=== PATIENT | female | born 1940 | race Caucasian/White ===

== ENCOUNTER 2016-05-13 17:52 | Emergency (ER) | payer MEDICARE, OTHER ==
--- NOTE | 2016-05-13 19:20 | RAD ---
INDICATION: Left ankle injury. TECHNIQUE: 3 views of the left ankle were obtained. FINDINGS: The bones appear osteopenic and in normal alignment. There is mild soft tissue swelling adjacent to the lateral malleolus. There is a nondisplaced fracture of the tip of the lateral malleolus age indeterminate although likely chronic. IMPRESSION: NONDISPLACED FRACTURE OF THE TIP OF THE LATERAL MALLEOLUS, AGE INDETERMINATE ALTHOUGH LIKELY CHRONIC.
--- NOTE | 2016-05-13 19:24 | RAD ---
INDICATION: Left lower leg injury. TECHNIQUE: 2 views of the left lower leg were obtained. FINDINGS: The bones are in normal alignment. Which may represent a chronic finding although a fracture cannot be excluded. There is slight depression of the medial tibial plateau Note is made of calcification within the distal quadriceps tendon most consistent with calcific tendinitis. IMPRESSION: MILD DEPRESSION OF THE MEDIAL TIBIAL PLATEAU. THIS MAY BE A CHRONIC FINDING ALTHOUGH A FRACTURE CANNOT BE EXCLUDED. RECOMMEND AN X-RAY OF THE LEFT KNEE IF THE PATIENT HAS SYMPTOMS OVER THIS REGION.
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
[2016-05-13] MEDS ORDERED: oxyCODONE SR TAB(*) 10 MG TAB.SR PO ONE (19:51)
--- NOTE | 2016-05-13 20:03 | RAD ---
INDICATION: Left knee injury. TECHNIQUE: 2 views of the left knee were obtained. FINDINGS: The bones are in normal alignment. No fracture is seen. No joint effusion is present. 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 There is moderate to severe osteoarthritic change in the medial compartment. IMPRESSION: NO EVIDENCE FOR FRACTURE.
[2016-05-13 20:53] VITALS: BP 108/43
== END 2016-05-13 20:52 | disposition home or self-care (01) ==
LOC: ED 17:52
DX: S82.65XA Nondisplaced fracture of lateral malleolus of left fibula, initial encounter for closed fracture (principal); M25.572 Pain in left ankle and joints of left foot; M25.562 Pain in left knee; S80.12XA Contusion of left lower leg, initial encounter; V49.9XXA Car occupant (driver) (passenger) injured in unspecified traffic accident, initial encounter; Y93.89 Activity, other specified; Y92.9 Unspecified place or not applicable; Y93.9 Activity, unspecified
CPT/HCPCS: 99282; A9270-GY

== ENCOUNTER 2016-05-22 13:15 | Emergency (ER) | payer MEDICARE ==
[2016-05-22 13:28] VITALS: BP 137/59
--- NOTE | 2016-05-22 14:47 | RAD ---
HISTORY: Edema, pain left leg COMPARISONS: April 03, 2015 TECHNIQUE: Multiple transverse and longitudinal ultrasound images were obtained of the left lower extremity from the level of the common femoral vein inferiorly through to the infrapopliteal veins using grayscale, color Doppler, and spectral Doppler imaging with and without compression and with augmentation. Comparison images were obtained of the contralateral common femoral vein. FINDINGS: VEINS: The venous system of the left lower extremity is compressible throughout its course, with normal flow on color Doppler imaging and normal response to augmentation on spectral Doppler imaging. SOFT TISSUES: Unremarkable. OTHER FINDINGS: None. IMPRESSION: NO LEFT LOWER EXTREMITY DEEP VEIN THROMBOSIS
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
== END 2016-05-22 15:28 | disposition home or self-care (01) ==
LOC: UCEAST 13:15
DX: S80.12XD Contusion of left lower leg, subsequent encounter (principal); V43.62XD Car passenger injured in collision with other type car in traffic accident, subsequent encounter; R60.0 Localized edema; E03.9 Hypothyroidism, unspecified; I25.2 Old myocardial infarction; I10 Essential (primary) hypertension; Z95.0 Presence of cardiac pacemaker; I50.9 Heart failure, unspecified; G45.9 Transient cerebral ischemic attack, unspecified; G43.909 Migraine, unspecified, not intractable, without status migrainosus; Z90.49 Acquired absence of other specified parts of digestive tract; Z88.5 Allergy status to narcotic agent; Z88.2 Allergy status to sulfonamides
CPT/HCPCS: 99212; G0463

== ENCOUNTER 2016-07-13 11:40 | Observation (INO) | payer MEDICARE, OTHER ==
[2016-07-13] MEDS ORDERED: Aspirin Low Dose CHEW TAB* 81 MG PO ONE (11:47)
--- NOTE | 2016-07-13 12:21 | RAD ---
INDICATION: Palpitations. COMPARISON: Comparison is made with a prior study from December 30, 2015. TECHNIQUE: A portable view of the chest was obtained. FINDINGS: The patient is status post sternotomy. There is a multilead transvenous pacemaker present. The heart is moderately enlarged and unchanged from the prior exam. The lungs are underinflated and clear. No pleural effusion is seen. IMPRESSION: CARDIOMEGALY AND POSTSURGICAL CHANGES, NO EVIDENCE FOR ACUTE FINDING.
[2016-07-13 13:11] LABS: Albumin 3.3 g/dL (3.2-5.2); BUN/Creatinine Ratio 23.9 (8-20); Calcium 8.7 mg/dL (8.6-10.3); EGFR African American 110.7 (>60); Globulin 3.7 g/dL (2-4); Potassium 3.6 mmol/L (3.5-5.0); Total Bilirubin 0.8 mg/dL (0.2-1.0)
[2016-07-13 13:13] LABS: Troponin I 0.03 ng/mL (<0.04)
[2016-07-13 13:28] LABS: Hematocrit 39 % (35-47); Hemoglobin 12.7 g/dl (12.0-16.0); Mean Corpuscular HGB Conc 32 g/dl (31-36); Mean Corpuscular Hemoglobin 33 pg (27-31); Mean Corpuscular Volume 101 fL (80-97); Mean Platelet Volume 8 um3 (7.4-10.4); Red Blood Count 3.89 10^6/ul (4.0-5.4); Red Cell Distribution Width 15 % (10.5-15); White Blood Count 4.3 10^3/ul (3.5-10.8)
[2016-07-13] MEDS ORDERED: Iohexol 350* (CONTRAST) 500 ML MDV IV ONE (14:56)
[2016-07-13 15:16] LABS: Digoxin 1.1 ng/ml (0.8-2.0)
--- NOTE | 2016-07-13 15:30 | RAD ---
INDICATION: Chest pain. COMPARISON: Comparison is made with a prior CT angiogram of the chest from April 03, 2015. Correlation is also made with a prior chest x-ray study from July 13, 2016. TECHNIQUE: A CT angiogram of the chest was performed with intravenous following intravenous injection of 64 ml of Omnipaque 350 nonionic contrast. Contiguous axial sections were obtained from the lung apices through the lung bases. Images were reconstructed in the coronal and sagittal planes. FINDINGS: There is suboptimal opacification of the pulmonary arteries with slight decreased opacification of the basilar segmental arteries. No intraluminal filling defect or pulmonary embolism is seen. There is prominence of the central pulmonary arteries suggestive possibility of pulmonary artery hypertension. 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 No pericardial effusion is present. The thoracic aorta is normal in caliber. There is mild calcific plaque present. There are prominent lymph nodes in the mediastinum in the pretracheal and aorticopulmonary window regions measuring up to 1.3 cm in transverse dimension and unchanged from the prior study. No enlarged hilar lymph nodes are seen. There is a small right lower lobe infiltrate and trace right pleural effusion. No significant focal osseous abnormality is seen. IMPRESSION: 1. SLIGHTLY LIMITED EXAM, NO EVIDENCE FOR PULMONARY EMBOLISM. 2. SMALL RIGHT LOWER LOBE INFILTRATE AND TRACE RIGHT PLEURAL EFFUSION. 3. OCCLUSION OF THE LEFT SUBCLAVIAN VEIN. 4. MARKED CARDIOMEGALY, UNCHANGED. 5. MILDLY PROMINENT MEDIASTINAL LYMPH NODES, UNCHANGED.
[2016-07-13] MEDS ORDERED: cefTRIAXone(*) 1 GM in NS 0.9% 50 ML* 50 ML IVPB ONE (16:15)
[2016-07-13] MEDS ORDERED: Azithromycin IV(*) 500 MG in NS 0.9% 250 ML* 250 ML IVPB ONE (16:15)
[2016-07-13] MEDS ORDERED: Ondansetron INJ* 2 MG/ML VIAL IV PRN (17:38)
[2016-07-13] MEDS ORDERED: Acetaminophen TAB* 325 MG PO PRN (17:38)
[2016-07-13] MEDS ORDERED: Potassium Chlor TAB* 20 MEQ TAB.ER PO ONE (18:08)
[2016-07-13] MEDS ORDERED: Furosemide IV* 10 MG/ML 2 ML VIAL (20 MG) IV SLOW PU ONE (18:10)
[2016-07-13] MEDS ORDERED: Lisinopril TAB* 5 MG PO ONE (18:10)
[2016-07-13 18:25] LABS: Magnesium 1.8 mg/dL (1.9-2.7)
[2016-07-13 18:36] LABS: TSH (Thyroid Stimulating Horm) 3.3 mcIU/mL (0.34-5.60)
[2016-07-13] MEDS: DOXYcycline CAP(*) 100 MG PO SCH (20:09)
[2016-07-13] MEDS: Rivaroxaban TAB(*) 15 MG PO SCH (20:09)
[2016-07-13] MEDS ORDERED: Metoprolol Succinate XL TAB* 100 MG PO SCH (21:00)
--- NOTE | 2016-07-13 21:41 | HP ---
ADDENDUM NOW INCLUDED ON THIS REPORT MEDICINE HISTORY AND PHYSICAL: DATE OF ADMISSION: 07/13/16 PROVIDER: Kevyn Mccray NP ATTENDING PHYSICIAN: Dr. Miquel Connelly *(dictated by Kevyn Mccray NP). CONSULTING PHYSICIAN: Dr. Mat Shipman, Cardiology. PRIMARY CARE PROVIDER: Dr. Gregory Edge. PRIMARY SECURITY DOOR INSTALLER: Dr. Tavarez. CHIEF COMPLAINT: Palpitations, ICD firing. HISTORY OF PRESENT ILLNESS: Ms. Bain is a 75-year-old female with an extensive cardiac history, which includes severe nonischemic cardiomyopathy and mitral valve repair, paroxysmal atrial fibrillation, coronary artery disease, congestive heart failure, and hypertension. The patient reports early this morning around 1 or 2 a.m. that she experienced two " shocks" from her ICD. She thinks that fired maybe 2, possibly 3 times. She also felt palpitations. She went to the [facility] last evening for further evaluation. Per the [facility] notes as well as the patient, the patient did have her ICD and pacemaker interrogated by a [employer] rep, who apparently also reset the ICD. The patient was treated with IV digoxin and potassium and was discharged to home. The patient says that later this morning, after being discharged, she still felt weak and still was having palpitations. She also feels some chest pain to the left chest, which she describes as being just under the defibrillator. She feels increased shortness of breath and fatigue that she describes mostly as inability to tolerate activity. She denies any wheezing or coughing. She denies any recent illnesses and fever or chills. She denies any cold or flu - like symptoms including cough. She denies any abdominal pain, nausea, vomiting, diarrhea, dysuria, focal weakness, or sensory loss. She does report chronic bilateral lower extremity edema secondary to peripheral vascular disease. In the ER, the patient had labs drawn. Her troponin is 0.03, which appears to be around her baseline. Her BNP is 527, which is actually low in the previous admissions that we have here on record. Her dig level is 1.1. CTA of the chest and thorax shows no evidence of pulmonary embolism. There is a small right lower lobe infiltrate and trace right pleural effusion. There is also occlusion of the left subclavian vein. Marked cardiomegaly that is unchanged and mildly prominent mediastinal lymph nodes also unchanged. PAST MEDICAL HISTORY: Includes: 1. Coronary artery disease. The patient has a history of myocardial infarction x3. 2. Nonischemic cardiomyopathy. 3. Systolic heart failure. EF on echocardiogram from 2016 is estimated at 20% to 25%. 4. Paroxysmal atrial fibrillation. The patient was previously on warfarin, but states that has been off this for several weeks, she is unsure why. 5. Hypertension. 6. Peripheral vascular disease with venous stasis changes. 7. History of TIA. 8. Hypothyroidism. 9. GERD. 10. Peptic ulcer disease. 11. Osteoarthritis. 12. Thrombocytopenia. 13. History of migraines. 14. History of leukopenia. 15. The patient wears chronic O2 at 6 L secondary to cardiac disease. PAST SURGICAL HISTORY: Includes: 1. ICD/pacemaker implantation. 2. Mitral valve repair secondary to history of rheumatic fever. 3. Cholecystectomy. 4. Lumbar spine surgery. 5. Hysterectomy. HOME MEDICATIONS: The med rec still needs to be updated. Previous records show the followin. Prednisone. 2. Oxycodone p.r.n. 3. Torsemide. 4. Spironolactone. 5. Metoprolol succinate XL. 6. Zaroxolyn. 7. Lisinopril. 8. Levothyroxine. 9. Esomeprazole. 10. Digoxin. 11. Atorvastatin. Doses need to be confirmed. We will update the list when it is available. ALLERGIES: Include HEPARIN which apparently causes rash and TORADOL. FAMILY HISTORY: The patient's mother had a history of heart disease. SOCIAL HISTORY: She denies any history of tobacco use. She reports rare alcohol use and denies any other history of illicit or recreational drug use. 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 She lives with her significant other, who is also her surrogate decision maker, Bret Altamirano. REVIEW OF SYSTEMS: A 14-point review of systems was completed. All pertinent positives and negatives are included in the HPI. All others not mentioned are negative. PHYSICAL EXAMINATION GENERAL: Ms. Bain is a 75-year-old female who is lying in the ED stretcher in no acute distress. She is alert and conversive. VITAL SIGNS: Temperature 97.9, heart rate 70, respiratory rate 18, blood pressure 149/67, and O2 saturation 99% on 6 L nasal cannula. HEENT: Head is atraumatic, normocephalic. Face is symmetrical. Pupils are equal, round, reactive to light. Sclerae anicteric. External ears and nose are normal. Oral mucosa appears moist. NECK: Supple. No lymphadenopathy appreciated. No JVD noted. RESPIRATORY: Lungs are clear to auscultation. There are no accessory muscle use. There are no adventitious lung sounds. CARDIAC: S1, S2 heart sounds. Regular rate and rhythm. No added sounds noted. The patient has 1+ pitting edema to the bilateral lower extremities. Distal pulses are 1+ and symmetrical. ABDOMEN: Soft, nontender, nondistended. MUSCULOSKELETAL: The patient appears to have full range of motion. NEURO: No focal deficits noted. The patient is able to move all extremities. PSYCH: She is alert and oriented x3. Her affect is appropriate. SKIN: The patient has venous stasis and skin changes to the bilateral lower extremities. There is a small open area to the posterior calf that is weeping clear serous fluid. No odor noted from wounds. DIAGNOSTIC STUDIES/LAB DATA: CBC: WBC 4.3, hemoglobin 12.7, hematocrit 39, platelet count 102. CMP: Sodium 138, potassium 3.6, chloride 103, carbon dioxide 29, BUN 16, creatinine 0.67, glucose 86, calcium 8.7. Total bilirubin 0.8, AST 39, ALT 25, alk phos 76. Troponin 0.03. BNP 527. Albumin 3.3. Digoxin 1.1. EKG shows a paced rhythm. Chest x-ray, impression: Cardiomegaly and postsurgical changes. No evidence for acute finding. CTA findings as previously mentioned. Old medical records were reviewed. ASSESSMENT AND PLAN: Ms. Bain is a 75-year-old female presented today with concern for palpitations and weakness secondary to her implantable cardioverter- defibrillator discharging. [facility] records show that the [employer] rep interrogated the device and noted supraventricular tachycardia and ventricular fibrillation. Plan is as follows: 1. Palpitations and implantable cardioverter-defibrillator discharge secondary to ventricular fibrillation and supraventricular tachycardia. Admit to telemetry for further monitoring. I did speak with Dr. Shipman who will consult on the patient tomorrow. Per the [facility] records, the implantable cardioverter -defibrillator is working properly. The patient says that her implantable cardioverter-defibrillator has not fired in quite some time. Given her reports of persistent weakness, it will be beneficial to monitor on telemetry, to obtain an echocardiogram tomorrow. The patient does have known cardiomyopathy that appears relatively severe. Additionally, we will recheck her labs in the a.m. She currently is in sinus rhythm with rates controlled in the 70s. 2. Right lower lobe infiltrate concerning for pneumonia. The patient has been afebrile and does not demonstrate any leukocytosis; however, given her weakness , this could represent a developing pneumonia. The patient was started on ceftriaxone and azithromycin in the ER. However, azithromycin does have interaction with digoxin and given that she has been experiencing arrhythmias, I have switched her to doxycycline in order to help maintain stability of her digoxin. She is also going to continue on ceftriaxone. She is currently not requiring any additional O2. Continue to monitor. 3. Subclavian vein occlusion. The patient was previously on warfarin, but cannot tell me as to why she was stopped. The patient denies any recent surgeries or bleeding. I am unable to bridge her back to a therapeutic INR on warfarin due to her HEPARIN allergy. We did discuss the risks and benefits of Xarelto and the patient is amenable to trying this drug. I will start her on Xarelto for acute deep venous thrombosis treatment and then we will switch her to the maintenance dose after she completes a 21-day dosing of 15 mg b.i.d. 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 4. History of systolic heart failure. Obtain new echocardiogram. Continue home medications which I am looking to confirm. We will continue daily weights and I's and O's. Does not appear to be in acute exacerbation at this time. Continue to monitor closely. The patient denies any orthopnea or increasing edema or increased shortness of breath. Continue the patient's Zaroxolyn, torsemide once dosing is confirmed. 5. Paroxysmal atrial fibrillation. Start Xarelto. Continue Toprol once dosing is confirmed. 6. Hyperlipidemia. Continue statin. 7. Hypothyroidism. Continue levothyroxine. 8. History of peptic ulcer disease and gastroesophageal reflux disease. Continue PPI. 9. Venous stasis ulcers. Appears stable per the patient's report. We will request Wound Care consult if the patient remains past Friday. Most of the wounds are scabbed over. There is one small open area which we will dress and monitor. 10. FEN. The patient is ordered a heart-healthy diet. 11. DVT prophylaxis. She is rated highest risk and will be started on Xarelto. 12. Code status. The patient wishes to be a full code. TIME SPENT: Time spent on this admission was approximately 60 minutes, more than half that time was spent [id number] with the patient obtaining history and physical, performing physical examination, and reviewing the plan of care. Plan of care was also reviewed with my attending, Dr. Connelly, who is in agreement. KEVYN MCCRAY NP ADDENDUM: ASSESSMENT AND PLAN: Macrocytosis, which appears to be chronic in nature. The patient does have a known history of B12 deficiency. Continue B12 supplementation and continue to monitor CBC. The patient also has a history significant for leukopenia. We will carefully monitor her platelet count and red blood cells. KEVYN MCCRAY NP CC: Dr. Gregory Edge* [id number]/CPS #: [id number]/CPS #: [id number] MARISOL
--- NOTE | 2016-07-13 21:41 | HP ---
HISTORY AND PHYSICAL:* ADDENDUM: ASSESSMENT AND PLAN: Macrocytosis, which appears to be chronic in nature. The patient does have a known history of B12 deficiency. Continue B12 supplementation and continue to monitor CBC. The patient also has a history significant for leukopenia. We will carefully monitor her platelet count and red blood cells. KEVYN MCCRAY, EXECUTIVE VICE PRESIDENT OF SALES [id number]/[facility] #: [id number] MARISOL
[2016-07-14 00:02] LABS: Urine Bilirubin Negative (Negative); Urine Glucose Negative (Negative); Urine Nitrite Negative (Negative)
[2016-07-14 05:14] LABS: Hematocrit 36 % (35-47); Mean Corpuscular HGB Conc 33 g/dl (31-36); Mean Corpuscular Hemoglobin 33 pg (27-31); Mean Corpuscular Volume 101 fL (80-97); Mean Platelet Volume 8 um3 (7.4-10.4); Red Blood Count 3.59 10^6/ul (4.0-5.4); Red Cell Distribution Width 14 % (10.5-15); White Blood Count 3.9 10^3/ul (3.5-10.8)
[2016-07-14 05:15] LABS: Add Diff/Slide Review? Slide Review Added; Comments Flag Yes
[2016-07-14 05:27] LABS: BUN/Creatinine Ratio 20.3 (8-20); Calcium 8.4 mg/dL (8.6-10.3); EGFR African American 128.1 (>60); EGFR Non-African American 99.6 (>60); Magnesium 1.5 mg/dL (1.9-2.7); Potassium 3.6 mmol/L (3.5-5.0)
[2016-07-14] MEDS ORDERED: Magnesium Sulf 4 GM/100 ML IV* 4,000 MG/100 ML BAG IVPB ONE (08:16)
[2016-07-14] MEDS ORDERED: Digoxin TAB* 0.125 MG PO SCH (09:00)
[2016-07-14] MEDS ORDERED: Potassium Chlor TAB* 20 MEQ TAB.ER PO SCH (09:00)
[2016-07-14] MEDS ORDERED: Metolazone TAB* 5 MG PO SCH (09:00)
[2016-07-14] MEDS ORDERED: Cyanocobalamin TAB* 500 MCG PO SCH (09:00)
[2016-07-14] MEDS ORDERED: Torsemide TAB* 20 MG PO SCH ×2 (09:00→10:08)
[2016-07-14] MEDS ORDERED: Metoprolol Succinate XL TAB* 100 MG PO SCH (09:00)
[2016-07-14] MEDS ORDERED: Lisinopril TAB* 5 MG PO SCH (09:00)
[2016-07-14] MEDS: Rivaroxaban TAB(*) 15 MG PO SCH (09:47)
[2016-07-14] MEDS: DOXYcycline CAP(*) 100 MG PO SCH (09:48)
[2016-07-14] MEDS ORDERED: oxyCODONE SR TAB(*) 40 MG TAB.SR PO PRN (10:05)
[2016-07-14] MEDS ORDERED: Methocarbamol TAB* 500 MG PO PRN (10:05)
[2016-07-14 12:36] VITALS: BP 108/39
--- NOTE | 2016-07-14 14:33 | ED ---
Marge Mitchell SooYoung, scribed for Gigi Rosales MD on 07/13/16 at 1148 . Palpitations / Dysrhythmia - HPI Summary HPI Summary: A 75 y/o F presents to ED with c/o racing palpitations onset approx 0230. She believes her pacemaker was "running funny." She went to [facility] ED last night and was seen by a rep from [employer] who reset the pacemaker. Pt went home but still did not feel right, so she [place] [facility] Associated sx: abd pain, lightheaded, SOB, CP from below the pacemaker onset yesterday evening, sore throat, leg swelling. She notes yesterday afternoon, her pacemaker gave her a strong shock. Pt sees Dr. Garcia, cardiology, at [facility]. She is scheduled to see him on 07/19. Pt is on home O2. - History of Current Complaint Chief Complaint: EDDysrhythmPalp Time Seen by Provider: 07/13/16 11:47 Hx Obtained From: Patient Onset/Duration: Lasting Hours, Still Present Timing: Constant Character: Fast, Irregular Associated Signs & Symptoms: Lightheadedness, Chest Pain, Shortness of Breath - Allergy/Home Medications Allergies/Adverse Reactions: Allergies Allergy/AdvReac Type Severity Reaction Status Date / Time Heparin Allergy Hives Verified 04/02/15 04:20 Ketorolac Tromethamine Allergy Unknown Verified 04/02/15 04:20 [From Toradol] Reaction Details PACEMAKER -NO MRIs Allergy PACEMAKER Uncoded 02/15/16 08:09 -NO MRIs PMH/Surg Hx/FS Hx/Imm Hx Previously Healthy: No Endocrine/Hematology History: Reports: Hx Thyroid Disease - hypothyroidism Denies: Hx Diabetes Cardiovascular History: Reports: Hx Auto Implanted Cardiovert Defib - AICD, Hx Congestive Heart Failure - CHRONIC, Hx Coronary Artery Disease, Hx Hypercholesterolemia, Hx Hypertension, Hx Pacemaker/ICD, Other Cardiovascular Problems/Disorders - NON ISCHEMIC CARDIOMYOPATHY Respiratory History: Reports: Other Respiratory Problems/Disorders - HOME O2 Denies: Hx Asthma, Hx Chronic Obstructive Pulmonary Disease (COPD) GI History: Reports: Hx Gall Bladder Disease, Hx Gastroesophageal Reflux Disease , Hx Ulcer - bleeding, Other GI Disorders - PUD History: Denies: Hx Renal Disease Musculoskeletal History: Reports: Hx Arthritis, Hx Back Problems Sensory History: Reports: Hx Contacts or Glasses Opthamlomology History: Reports: Hx Contacts or Glasses Neurological History: Reports: Hx Migraine, Hx Transient Ischemic Attacks (TIA) - Surgical History Surgery Procedure, Year, and Place: APR 16, 2011 PACER. gallbladder removed 1999. 12 rods placed in back ~10 years ago. hysterectomy Infectious Disease History: Reports: Hx of Known/Suspected MRSA Denies: Hx Hepatitis, History Other Infectious Disease, Traveled Outside the [place] in Last 30 Days - Family History Known Family History: Positive: Cardiac Disease - Social History Occupation: Retired Lives: Alone Alcohol Use: None Hx Substance Use: No Substance Use Type: Reports: None Hx Tobacco Use: No Smoking Status (MU): Never Smoked Tobacco Review of Systems Negative: Fever, Chills Negative: Erythema Positive: Sore Throat Positive: Palpitations, Chest Pain Positive: Shortness Of Breath. Negative: Cough Positive: Abdominal Pain. Negative: Vomiting, Nausea Negative: dysuria, hematuria Positive: Edema - pedal edema. Negative: Myalgia Negative: Rash Neurological: Other - pos: lightheadedness All Other Systems Reviewed And Are Negative: Yes Physical Exam - Summary Physical Exam Summary: Constitutional: Well-developed, Well-nourished, Alert. (-) Distressed Skin: Warm, Dry HENT: Normocephalic; Atraumatic Eyes: Conjunctiva normal Neck: Musculoskeletal ROM normal neck. (-) JVD, (-) Stridor, (-) Tracheal deviation Cardio: Rhythm regular, rate normal, Heart sounds normal; Intact distal pulses; The pedal pulses are 2+ and symmetric. Radial pulses are 2+ and symmetric. (-) Murmur Pulmonary/Chest wall: Effort normal. (-) Respiratory distress, (-) Wheezes, (-) Rales Abd: Soft, (-) Tenderness, (-) Distension, (-) Guarding, (-) Rebound Musculoskeletal: TRACE PITTING EDEMA, VENOUS STASIS AND SKIN CHANGES TO LE Lymph: (-) Cervical adenopathy Neuro: Alert, Oriented x3 Psych: Mood and affect Normal Triage Information Reviewed: Yes Vital Signs On Initial Exam: Initial Vitals Temp Pulse Resp BP Pulse Ox 97.0 F 70 18 151/59 98 07/13/16 11:42 07/13/16 11:42 07/13/16 11:42 07/13/16 11:42 07/13/16 11:42 Vital Signs Reviewed: Yes Diagnostics - Vital Signs Vital Signs Temp Pulse Resp BP Pulse Ox 07/13/16 11:42 97.0 F 70 18 151/59 98 - Laboratory Result Diagrams: 07/13/16 13:20 07/13/16 12:45 Lab Statement: Any lab studies that have been ordered have been reviewed, and results considered in the medical decision making process. - Radiology CXR Xray Interpretation: No Acute Changes - IMPRESSION: CARDIOMEGALY AND POSTSURGICAL CHANGES, NO EVIDENCE FOR ACUTE FINDING. Radiology Interpretation Completed By: Radiologist - CT CTA CHEST CT Interpretation: Positive (See Comments) - IMPRESSION: 1. SLIGHTLY LIMITED EXAM, NO EVIDENCE FOR PULMONARY EMBOLISM. 2. SMALL RIGHT LOWER LOBE INFILTRATE AND TRACE RIGHT PLEURAL EFFUSION. 3. OCCLUSION OF THE LEFT SUBCLAVIAN VEIN. 4. MARKED CARDIOMEGALY, UNCHANGED. 5. MILDLY PROMINENT MEDIASTINAL LYMPH NODES, UNCHANGED. CT Interpretation Completed By: Radiologist - EKG 1 EKG Interpretation: 70 bpm, Paced, no STEMI Course/Dx - Course Course Of Treatment: Pt is 75 y/o F presenting with racing palpitations onset approx 0230. She went to [place] ED last night and was seen by a rep from [employer] who reset the pacemaker. Pt went home but still did not feel right, so she came [place] [facility] [place] Associated sx: abd pain, lightheaded, SOB, CP from below the pacemaker onset yesterday evening, sore throat, leg swelling. She notes yesterday afternoon, her pacemaker gave her a strong shock. Pt sees Dr. Garcia, cardiology, at [facility]. She is scheduled to see him on 07/19. Pt is on home O2. Pt given aspirin in ED. Reviewed documentation from [facility]. Pt had a CT A/P on 07/09 for v/d. CXR shows no acute findings. 1st trop was 0.03. 2nd trop was 0.03. BNP was 527. Chest CTA shows "1. SLIGHTLY LIMITED EXAM , NO EVIDENCE FOR PE. 2. SMALL RIGHT LOWER LOBE INFILTRATE AND TRACE RIGHT PLEURAL EFFUSION. 3. OCCLUSION OF THE LEFT SUBCLAVIAN VEIN. 4. MARKED CARDIOMEGALY, UNCHANGED. 5. MILDLY PROMINENT MEDIASTINAL LYMPH NODES, UNCHANGED. ". Consulted with hospitalist, will admit. - Diagnoses Provider Diagnoses: Chest pain, unspecified, Community acquired pneumonia, Heart palpitations - Physician Notifications Discussed Care Of Patient With: Dr. Farooq, hospitalist Time Discussed With Above Provider: 16:19 Instructed by Provider To: Admit As Inpatient Discharge - Discharge Plan Condition: Stable Disposition: ADMITTED TO [facility] Referrals: Gregory Edge MD [Primary Care Provider] - The documentation as recorded by the Marge olivier SooYoung accurately reflects the service I personally performed and the decisions made by me, Gigi Rosales MD.
--- NOTE | 2016-07-14 16:05 | CONS ---
CARDIOLOGY CONSULTATION: DATE OF CONSULT: 07/14/16 INDICATION FOR CONSULTATION: Atrial fibrillation, nonischemic cardiomyopathy, ICD discharge. HISTORY OF PRESENT ILLNESS: The patient is a 75-year-old female with a history of severe nonischemic cardiomyopathy, history of mitral valve repair, history of paroxysmal atrial fibrillation, who came to the hospital because of ICD discharge and atrial fibrillation. The patient states that she was at home feeling poorly, she was feeling like she had no energy. She could tell her heart rate was fast. Ultimately, she had a shock from her ICD. She actually had two shocks and she went to [facility]. In the emergency room, her workup was unremarkable. She did have her ICD interrogated. She has a [employer] ICD, which demonstrated onset of atrial fibrillation with rapid ventricular response. She had initially overdrive pacing of her ventricle, which was unsuccessful and then ultimately a shock of her ICD. This was not successful and the second shock converted her back to normal sinus rhythm. The patient was discharge from [facility]. The patient went home. She was feeling poorly still. She felt as though her heart rate was irregular and fast and decided to come to [facility]. On arrival to [facility], her EKG demonstrates atrial paced, ventricularly sensed at 70 beats per minute. The patient was admitted to the hospital for observation. In speaking with the patient today, she actually feels well. She feels like her heart rhythm is normal. She feels like she has her normal energy. She denies any angina. She denies any palpitations. She denies any lightheadedness , dizziness, or syncope. PAST MEDICAL HISTORY: Significant for nonischemic cardiomyopathy. She had a cardiac catheterization in 2010, which showed no significant coronary artery disease. She has undergone mitral valve repair surgery. She has known moderate -to- severe tricuspid regurgitation. The patient did have an echocardiogram at [facility] in 2015, which showed an ejection fraction of 20% to 25%. This was done in April 2015. She had mild mitral regurgitation, severe tricuspid regurgitation, moderate pulmonary hypertension. She also has a history of TIAs in the past, peptic ulcer disease, osteoarthritis, recurrent migraines. She is on chronic 6 L of oxygen. PAST SURGICAL HISTORY: Mitral valve repair, ICD implantation, cholecystectomy, lumbar spine surgery, hysterectomy. OUTPATIENT MEDICATIONS: 1. Torsemide. 2. Spironolactone. 3. Metoprolol XL. 4. Lisinopril. 5. Levothyroxine. 6. Omeprazole. 7. Digoxin. ALLERGIES: She has a history of rash with HEPARIN and intolerant of TORADOL. FAMILY HISTORY: Mother of coronary artery disease. SOCIAL HISTORY: She lives with her significant other. 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 She denies tobacco or alcohol use. PHYSICAL EXAM: Height is 5 feet 5 inches, weight is 151 pounds. Temperature 98.5, heart rate is 70, respiratory rate is 16, oxygen saturation 99% on 3 L, blood pressure 112/58. Sclerae anicteric. Oropharynx is pink without erythema. Carotids are 2+ without bruits. JVD is normal. Thyroid is normal. Cardiac Exam: S1 and S2 with a 1/6 systolic ejection murmur heard best at the right upper sternal border. PMI is normal. Lungs are clear to auscultation bilaterally. There is no dullness to percussion. Abdomen is soft, nontender, and nondistended with normoactive bowel sounds. Extremities show 1+ edema. She has 2+ pulses throughout. The patient is awake, alert, and oriented. She moves all 4 extremities equally. Her ICD site is stable. DIAGNOSTIC STUDIES/LAB DATA: CBC within normal limits. Chemistries within normal limits. BUN 12, creatinine 0.6. Troponin levels are negative x3. TSH is 3.3. Digoxin level is 1.1. IMPRESSION: This is a 75-year-old woman with a history of severe nonischemic cardiomyopathy, history of paroxysmal atrial fibrillation, history of mitral valve repair who came to the hospital because of feeling poorly because of atrial fibrillation. In reviewing her ICD interrogation, she did have onset of atrial fibrillation with rapid ventricular response that resulted in an ICD shock. The patient has had slight increase in her overall episodes of atrial fibrillation over the last couple of months. The patient was seen regularly by Dr. Tavarez. The patient has an appointment with Dr. Tavarez on July 19. At that time, the patient is going to discuss antiarrhythmic therapy with Dr. Tavarez. RECOMMENDATIONS: For now, my recommendation is just to restart her anticoagulation. The patient will be started on Xarelto 20 mg a day. Her other medications will remain the same. The patient is already on beta- blockers. The patient should be started on antiarrhythmic medication given her episodes of AFib and LV dysfunction. I would consider amiodarone therapy, Multaq therapy , or Tikosyn. CC: Dr. Edge; Dr. Tavarez at [place], [place] * [id number]/[facility] #: [id number] MTDD
[2016-07-14] MEDS ORDERED: cefTRIAXone VIAL(*) 1,000 MG in NS 0.9% 50 ML* 50 ML IVPB SCH (17:00)
--- NOTE | 2016-07-15 00:45 | DS ---
DISCHARGE SUMMARY: DATE OF ADMISSION: 07/13/16 DATE OF DISCHARGE: 07/14/16 ATTENDING PHYSICIAN: Miquel Connelly MD* (DICTATED BY UYEN HOWE) PRIMARY CARE PROVIDER: Gregory Edge MD PRIMARY SMOKING PIPES CLEANER: Dr. Tavarez. CONSULTING SMOKING PIPES CLEANER: Mat Shipman MD PRIMARY DISCHARGE DIAGNOSES: 1. ICD firing secondary to ventricular fibrillation and supraventricular tachycardia. 2. Paroxysmal atrial fibrillation with occasional rapid ventricular rate. 3. 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 4. Hypomagnesemia. SECONDARY DISCHARGE DIAGNOSES: 1. Chronic respiratory failure secondary to congestive heart failure, requiring 6 L via nasal cannula chronically. 2. Severe cardiomyopathy with ejection fraction of 20% to 25% with ICD/pacer in place. 3. Coronary artery disease with history of 3 prior myocardial infarctions. 4. Hypertension. 5. Hyperlipidemia. 6. Peripheral vascular disease. 7. History of transient ischemic attack. 8. Hypothyroidism. 9. Gastroesophageal reflux disease. HOSPITAL IMAGIN. Chest x-ray shows no acute process. 2. CTA of the chest shows no PE, but evidence of a left subclavian occlusion with multiple collaterals present and questionable right lower lobe infiltrate. 3. EKG shows paced rhythm. 4. Overnight telemetry shows paced rhythm with frequent PVCs. DISCHARGE MEDICATIONS: 1. Methocarbamol 500 mg p.o. 4 times a day as needed for spasm. 2. Voltaren gel 1% apply topically 2 times daily as needed. 3. Lactulose 1 tablespoon p.o. daily. 4. Lisinopril 5 mg p.o. daily. 5. Vitamin B12 1000 mcg p.o. daily. 6. Digoxin 125 mcg p.o. daily. 7. Nexium 40 mg p.o. daily. 8. Ferrous sulfate 325 mg p.o. daily. 9. Levothyroxine 50 mcg p.o. daily. 10. Magnesium oxide 400 mg p.o. twice daily. 11. Metoprolol (the patient is unsure of the dosing on this, but she does take it twice daily). 12. Potassium chloride 20 mEq p.o. daily. 13. Spironolactone 25 mg p.o. daily. 14. Detrol LA 4 mg p.o. daily. 15. Torsemide 20 mg p.o. daily. 16. Coumadin 5 mg p.o. daily. 17. OxyContin 80 mg p.o. q.8 hours as needed for pain. MEDICATION CHANGES: 1. Start Coumadin with instructions to repeat INR on Friday or Friday. 2. Start magnesium supplementation. HOSPITAL COURSE: This is a 75-year-old female with a history of severe ischemic cardiomyopathy with a last known ejection fraction at 20% to 25% as well as paroxysmal atrial fibrillation followed chronically for cardiology care with Dr. Taavrez, who was seen at [facility]'s emergency department and subsequently discharged from there and then presented to our emergency department with the same complaints. The patient's ICD had fired 2 to 3 times throughout the day before presenting to the emergency department. Her ICD was interrogated by inbound customer service representative from as [employer], which demonstrated shockable rhythms as ventricular fibrillation as well as SVT , and episodes of paroxysmal atrial fibrillation with a rapid ventricular rate. On-call Cardiology was consulted there per emergency department notes and recommendation was for discharge to home with close followup with her equip tech. The patient instead decided to present to our emergency department for further evaluation. When she arrived, initial vitals were essentially within normal limits. She was noted to be in a primarily paced rhythm. Initial labs demonstrated hypomagnesemia with magnesium of 1.8, initial troponin was 0.03, and TSH was normal and her digoxin level was also within normal limits at 1.1. The patient subsequently admitted for a period of observation. She was maintained on continuous telemetry monitoring, which demonstrated frequent PVCs, but otherwise a primarily paced rhythm. There are no dysrhythmias appreciated. The patient was subsequently evaluated by equip tech, Dr. Shipman, who felt that the patient was appropriate for discharge to home as she has established followup with her equip tech for Friday. Plans had been to discuss initiating an antiarrhythmic with her equip tech as apparently her ICD has been firing frequently over the last several weeks. Also, of note CTA was performed, which did not demonstrate a PE, but a left subclavian occlusion with multiple collaterals present making this most likely a chronic finding. The patient does have an ICD and pacer present on the right side, but states that this was originally present on the left side, but was removed after infection had developed. The patient was initially started on Xarelto during her hospital stay, but prefers to resume Coumadin as an outpatient. Seeing as her clot is likely chronic in nature and the other indication for anticoagulation is atrial fibrillation, she will not be bridged with Lovenox therapy. The patient had no evidence of CHF exacerbation during her hospital stay and had no other acute complaints. There was some concern about possible right lower lobe infiltrate on initial imaging, but the patient remained afebrile without an elevated white count and denied excessive fatigue, weakness, or cough. Further treatment was not recommended. DISPOSITION: The patient is being discharged to home with medication changes as outlined above. She requires repeat INR on Friday or Friday with followup with her primary care provider for appropriate dose adjustment. She does not recall what her prior dose of Coumadin was. She has an established followup with her equip tech for Friday, which she is encouraged to keep. UYEN HOWE CC: Dr. Edge; Dr. Tavarez* [id number]/[facility] #: [id number] [facility]PITALSanjiv
[2016-07-15] MEDS ORDERED: Levothyroxine TAB* 25 MCG TAB PO SCH (06:00)
[2016-07-15] MEDS ORDERED: Ferrous Sulfate TAB* 325 MG PO SCH (06:00)
[2016-07-15] MEDS ORDERED: Omeprazole CAP* 20 MG PO SCH (07:30)
[2016-07-15] MEDS ORDERED: Spironolactone TAB* 25 MG PO SCH (09:00)
[2016-07-15] MEDS ORDERED: Lisinopril TAB* 5 MG PO SCH (09:00)
[2016-07-15] MEDS ORDERED: Oxybutynin XL TAB* 5 MG PO SCH (09:00)
== END 2016-07-14 14:13 | disposition home or self-care (01) ==
LOC: ED 11:40 → MEDTELE 16:27
PROVIDERS: ADMIT Internal Medicine; ATTEND Internal Medicine
DX: I47.1 Supraventricular tachycardia (principal); I49.01 Ventricular fibrillation; I48.0 Paroxysmal atrial fibrillation; I82.B22 Chronic embolism and thrombosis of left subclavian vein; E83.42 Hypomagnesemia; J96.10 Chronic respiratory failure, unspecified whether with hypoxia or hypercapnia; I25.5 Ischemic cardiomyopathy; I25.10 Atherosclerotic heart disease of native coronary artery without angina pectoris; I25.2 Old myocardial infarction; E78.5 Hyperlipidemia, unspecified; I73.9 Peripheral vascular disease, unspecified; I50.20 Unspecified systolic (congestive) heart failure; I11.0 Hypertensive heart disease with heart failure; Z79.01 Long term (current) use of anticoagulants; E03.9 Hypothyroidism, unspecified; K21.9 Gastro-esophageal reflux disease without esophagitis; E78.00 Pure hypercholesterolemia, unspecified; D75.89 Other specified diseases of blood and blood-forming organs; Z95.810 Presence of automatic (implantable) cardiac defibrillator
CPT/HCPCS: 36415; 71010; 71275; 80048; 80053; 80162; 81003; 83605; 83735; 83880; 84443; 84484; 85025; 93005; 94760; 94761; 96365; 96366; 96367; 96375; 99283; A9270-GY; G0378; G8978-GP-CJ; G8979-GP-CJ; J0456; J0696; J1940; Q9967

== ENCOUNTER 2016-12-20 16:40 | Inpatient (IN) | payer MEDICARE, OTHER ==
[2016-12-20 17:58] LABS: Hematocrit 39 % (35-47); Hemoglobin 12.8 g/dl (12.0-16.0); Mean Corpuscular HGB Conc 33 g/dl (31-36); Mean Corpuscular Hemoglobin 33 pg (27-31); Mean Corpuscular Volume 100 fL (80-97); Mean Platelet Volume 8 um3 (7.4-10.4); Red Blood Count 3.84 10^6/ul (4.0-5.4); Red Cell Distribution Width 15 % (10.5-15); White Blood Count 6.5 10^3/ul (3.5-10.8)
[2016-12-20 18:13] LABS: Albumin 3.3 g/dL (3.2-5.2); Calcium 8.6 mg/dL (8.6-10.3); EGFR African American 95.7 (>60); EGFR Non-African American 74.4 (>60); Globulin 3.6 g/dL (2-4); Magnesium 1.8 mg/dL (1.9-2.7); Total Bilirubin 0.6 mg/dL (0.2-1.0); Total Protein 6.9 g/dL (6.4-8.9)
--- NOTE | 2016-12-20 18:14 | RAD ---
Indication: Left knee replacement. 2 views of left knee demonstrates bipolar knee replacement in satisfactory position. No loosening is noted. IMPRESSION: Left knee replacement in satisfactory position.
[2016-12-20] MEDS ORDERED: Potassium Chlor TAB* 20 MEQ TAB.ER PO ONE ×2 (18:17→20:30)
[2016-12-20] MEDS ORDERED: Magnesium Oxide TAB* 400 MG PO ONE (18:17)
[2016-12-20 18:22] LABS: Troponin I 0.04 ng/mL (<0.04)
[2016-12-20] MEDS ORDERED: Furosemide IV* 10 MG/ML 2 ML VIAL (20 MG) IV ONE (18:32)
[2016-12-20 18:50] LABS: TSH (Thyroid Stimulating Horm) 0.64 mcIU/mL (0.34-5.60)
[2016-12-20 19:48] LABS: Urine Bacteria Absent (Absent); Urine Bilirubin Negative (Negative); Urine Glucose Negative (Negative); Urine Nitrite Negative (Negative)
[2016-12-20] MEDS ORDERED: Methocarbamol TAB* 500 MG PO PRN (20:12)
[2016-12-20] MEDS ORDERED: Ondansetron TAB* 4 MG PO PRN (20:12)
[2016-12-20] MEDS ORDERED: oxyCODONE SR TAB(*) 40 MG TAB.SR PO PRN (20:25)
[2016-12-20] MEDS ORDERED: oxyCODONE TAB* 5 MG TAB PO PRN (20:50)
[2016-12-20] MEDS: oxyCODONE SR TAB(*) 40 MG TAB.SR PO SCH (22:26)
[2016-12-20] MEDS: Metoprolol Succinate XL TAB* 100 MG PO SCH (22:27)
[2016-12-20] MEDS: Cyanocobalamin TAB* 500 MCG PO SCH (22:27)
[2016-12-20] MEDS: Magnesium Oxide TAB* 400 MG PO SCH (22:27)
--- NOTE | 2016-12-21 01:01 | HP ---
CC: Dr. Edge; Dr. Tavarez* HOSPITAL MEDICINE HISTORY AND PHYSICAL: DATE OF ADMISSION: 12/20/16 PRIMARY CARE PHYSICIAN: Dr. Edge. MUSEUM PREPARATOR: Dr. Tavarez. ATTENDING PHYSICIAN: Dr. Randall Kenny* (dictation provided by Ainsley Abel NP) . CHIEF COMPLAINT: Shortness of breath. HISTORY OF PRESENT ILLNESS: Ms. Bain is a 75-year-old female with a complicated past medical history including MIs x3 with severe ischemic cardiomyopathy and ejection fraction 20% to 25% with episodes of V-tach, now with ICD and pacemaker. She also has a history of atrial fibrillation, hypertension and is on 6 L nasal cannula for chronic hypoxic respiratory failure. She states that every summer she lives in her RV in [place] with her significant other. She was getting ready and packing up the RV to return home over the past few days and with that she has been noticing more shortness of breath associated with a racing heart beat. She also describes having discomfort in her stomach and feeling very weak, which is typical for her when she has a racing heart rate. She reports that yesterday her ICD fired. She denies any other complaints. She has had no chest pain. She has had no cough. She has had a bit of a cold with upper respiratory congestion. She has had no fever. She reports lower extremity edema and about 7 to 8 pound weight gain over the summer. She also reports possible increased salt intake over the summer including eating hot dogs several times a week. In the emergency room, Ms. Bain had labs, which showed an elevated BNP to 1934, this is on the high-end for her. She has a low potassium and a low magnesium. She has a chest x-ray, which shows cardiomegaly and some mild interstitial edema. She is satting well on her normal 5 to 6 L nasal cannula. Her troponin is 0.04. PAST MEDICAL HISTORY: 1. MIs x3. 2. Severe ischemic cardiomyopathy with ejection fraction 20% to 25%. 3. Chronic hypoxic respiratory failure with 6 L nasal cannula at home. 4. History of ICD for V-tach. 5. AFib. 6. Pacemaker. 7. Hypertension. 8. Hyperlipidemia. 9. Peripheral vascular disease. 10. Transient ischemic attack. 11. Hypothyroidism. 12. GERD. MEDICATIONS: 1. Voltaren 1% gel 1 application topically b.i.d. p.r.n. 2. Esomeprazole 40 mg p.o. daily. 3. Lisinopril 5 mg p.o. daily. 4. Tolterodine 4 mg p.o. daily. 5. Torsemide 40 mg p.o. daily. 6. Cyanocobalamin 1000 mcg p.o. b.i.d. 7. Digoxin 0.125 mg p.o. daily. 8. Ferrous sulfate 325 mg p.o. daily. 9. Lactulose 30 mL p.o. daily. 10. Levothyroxine 75 mcg p.o. daily. 11. Magnesium oxide 400 mg p.o. b.i.d. 12. Methocarbamol 500 mg p.o. q.i.d. p.r.n. 13. Metoprolol succinate 100 mg p.o. at bedtime. 14. Ondansetron 4 mg p.o. q.6 hours p.r.n. 15. Potassium chloride 20 mEq p.o. daily. 16. Warfarin 6 mg p.o. daily. 17. Oxycodone SR 80 mg p.o. q.8 hours p.r.n. ALLERGIES: To ADHESIVE TAPE, HEPARIN. FAMILY HISTORY: The patient reports her mother had heart disease. SOCIAL HISTORY: The patient denies any alcohol, tobacco, or drug use. She lives with her significant other, Bret Altamirano and he is the healthcare proxy. REVIEW OF SYSTEMS: A 14-point review of systems was completed with Ms. Bain and all those not mentioned above were negative. PHYSICAL EXAMINATION GENERAL: Ms. Bain is sitting up in the bed. She is in no acute distress. VITAL SIGNS: Temperature 98.5, heart rate 77, respiratory rate 19, O2 saturation 93% on room air, blood pressure 130/91. HEART: S1, S2. No murmur, rub, or gallop and regular. LUNGS: Diminished in the bases, but are clear otherwise. There is no accessory muscle use and good aeration. ABDOMEN: Soft, nontender with bowel sounds positive x4. NEURO: She is alert. She is oriented x3. She moves all extremities equally. There is no facial asymmetry or focal weakness. Extraocular movements are intact. EXTREMITIES: No cyanosis or edema. SKIN: Intact. DIAGNOSTIC STUDIES/LAB DATA: Sodium 139, potassium 3.0, chloride 99, serum bicarbonate 34, BUN 19, creatinine 0.76, glucose 134. Lactic acid 1.4, magnesium 1.8. Troponin 0.04. BNP 1934. WBC is 6.5, hemoglobin 12.8, hematocrit 39, platelet count 127. Urine has not been sent, it is pending. Chest x-ray shows cardiomegaly with some pulmonary vascular congestion. EKG shows AFib with PVCs. ASSESSMENT AND PLAN: Ms. Bain is a 75-year-old female with past medical history of multiple myocardial infarctions with severe ischemic cardiomyopathy and ejection fraction 20% to 25% as well as chronic hypoxic respiratory failure on 6 L nasal cannula at home, who presents to the hospital today with concern for ICD firing yesterday in the setting of about 3 days worth of increased dyspnea on exertion associated with palpitations. In the emergency room, she has been found to have elevated BNP and a chest x-ray concerning for a mild CHF. Plans are for observation in the hospital for the followin. Tachycardia and ICD firing: The patient will be continuously monitored on the telemetry floor. She does have a mildly elevated troponin. We will repeat that x 2. Plan to have ICD interrogated. I have spoken with the plastic products sales representative from [facility] who will be interrogating the ICD/pacer in the AM but who will review available remote reports tonight. 2. Dyspnea on exertion. I suspect this is related to an acute on chronic systolic congestive heart failure exacerbation. Plan for diuresis tonight and close monitoring of I/Os with a ocampo catheter. Again, plan to have ICD/pacer interrogated to determine her rhythm and rate over the past few days as this is contributing to her symptomatology. She will also be on cable testers helper while here. Plan to repeat her electrolytes by replacing potassium and magnesium tonight and rechecking labs in the morning after diuresis this evening. 3. Atrial fibrillation. Continue warfarin. At this point, she is rate controlled. We will continue to monitor. 4. Gastroesophageal reflux disease. Continue esomeprazole. 5. Hypertension. Hold her lisinopril, hold oral torsemide, continue metoprolol succinate. 6. Chronic pain. Continue oxycodone SR. 7. DVT prophylaxis with warfarin. 8. Code status is full code. TIME SPENT: Approximately 60 minutes were spent on the admission of this patient, more than half of the time was spent with the patient at the bedside reviewing the events leading up to this hospitalization, performing the physical examination, and reviewing the plan of care. AINSLEY ABEL NP [id number]/[facility] #: [id number] MARISOL
[2016-12-21] MEDS: oxyCODONE SR TAB(*) 40 MG TAB.SR PO SCH ×3 (05:24→21:41)
[2016-12-21] MEDS: Levothyroxine TAB* 75 MCG TAB PO SCH (05:24)
[2016-12-21] MEDS ORDERED: Furosemide IV* 10 MG/ML 2 ML VIAL (20 MG) IV ONE (06:00)
[2016-12-21 06:32] LABS: Calcium 8.6 mg/dL (8.6-10.3); EGFR African American 90.2 (>60); EGFR Non-African American 70.1 (>60); Potassium 3.7 mmol/L (3.5-5.0)
--- NOTE | 2016-12-21 08:45 | PN ---
Subjective Date of Service: 12/21/16 Interval History: Ms. Bain is a 75 yo female with extensive cardiac hx that includes [place] x 3 with severe ischemic cardiomyopathy and EF of 20-25% with episodes of V-tach, now with ICD and pacemaker, that presented to the ED with concern for SOB, racing heart rate, and recent ICD firing. She has been camping with her significant other in their RV for the summer and admits to dietary indiscretion (ie, hot dogs) and increased exertion. This morning, she reports improvement in her symptoms and generally feels better. She is planning on scheduling an appointment with her health unit coordinator next week. She denies CP and is on her baseline oxygen. Family History: Unchanged from Admission Social History: Unchanged from Admission Past Medical History: Unchanged from Admission Objective Active Medications: Cyanocobalamin (Vitamin B12 Tab*) 1,000 mcg PO BID [facility] Last Admin: 12/20/16 22:27 Dose: 1,000 mcg Digoxin (Lanoxin Tab*) 0.125 mg PO DAILY [facility] Ferrous Sulfate (Ferrous Sulfate Tab*) 325 mg PO DAILY [facility] Lactulose (Lactulose*) 30 ml PO DAILY [facility] Levothyroxine Sodium (Synthroid Tab*) 75 mcg PO 0600 [facility] Last Admin: 12/21/16 05:24 Dose: 75 mcg Magnesium Oxide (Magox 400 Tab*) 400 mg PO BID [facility] Last Admin: 12/20/16 22:27 Dose: 400 mg Methocarbamol (Robaxin Tab*) 500 mg PO QID PRN PRN Reason: SPASMS - MUSCLE Metoprolol Succinate (Toprol Xl Tab*) 100 mg PO BEDTIME [facility] Last Admin: 12/20/16 22:27 Dose: 100 mg Ondansetron HCl (Zofran Tab*) 4 mg PO Q6H PRN PRN Reason: NAUSEA Oxycodone HCl (Roxycodone Tab*) 20 mg PO Q6H PRN PRN Reason: PAIN Oxycodone HCl (Oxycontin(*)) 80 mg PO Q8HR [facility] Last Admin: 12/21/16 05:24 Dose: 80 mg Potassium Chloride (Klor Con Er Tab*) 20 meq PO DAILY [facility] Spironolactone (Aldactone Tab*) 100 mg PO DAILY [facility] Warfarin Sodium (Coumadin Tab(*)) 6 mg PO DAILY@1700 [facility] PRN Reason: Protocol Vital Signs 12/20/16 12/20/16 12/20/16 20:00 20:31 20:43 Temperature Pulse Rate 77 79 76 Respiratory 19 21 Rate Blood Pressure 85/61 128/80 135/78 (mmHg) O2 Sat by Pulse 93 89 93 Oximetry 12/20/16 12/20/16 12/20/16 20:44 21:07 22:26 Temperature 97.6 F Pulse Rate 84 69 Respiratory 20 22 Rate Blood Pressure 135/78 130/55 (mmHg) O2 Sat by Pulse 97 Oximetry 12/20/16 12/21/16 12/21/16 23:25 00:26 03:16 Temperature 97.6 F 97.6 F Pulse Rate 70 69 Respiratory 20 22 16 Rate Blood Pressure 123/46 126/54 (mmHg) O2 Sat by Pulse 100 96 Oximetry 12/21/16 12/21/16 05:24 07:15 Temperature 97.7 F Pulse Rate 71 Respiratory 20 16 Rate Blood Pressure 132/69 (mmHg) O2 Sat by Pulse 100 Oximetry Oxygen Devices in Use Now: Nasal Cannula - 6Lnc Appearance: Older female, sitting up in bed, in NAD Eyes: No Scleral Icterus Ears/Nose/Mouth/Throat: Clear Oropharnyx, Mucous Membranes Moist Neck: NL Appearance and Movements; NL JVP Respiratory: Symmetrical Chest Expansion and Respiratory Effort, Clear to Auscultation - diminished Cardiovascular: NL Sounds; No Murmurs; No JVD, RRR Abdominal: NL Sounds; No Tenderness; No Distention Extremities: No Edema, No Clubbing, Cyanosis, - - chronic venous changes Skin: - Neurological: Alert and Oriented x 3, NL Muscle Strength and Tone Lines/Tubes/Other Access: Clean, Dry and Intact Peripheral IV Nutrition: Taking PO's Result Diagrams: 12/20/16 17:48 12/21/16 05:52 Microbiology and Other Data: Microbiology 12/20/16 23:16 Nasal Screen MRSA (PCR)(DAVID) - Final Nasal Mrsa Positive Assess/Plan/Problems-Billing Assessment: Ms. Bain is a 75 yo female with a PMH significant for multiple myocardial infarctions, severe ischemic cardiomyopathy with EF 20% to 25%, chronic hypoxic respiratory failure with chronic use of 6Lnc, afib, and HTN, who presents to the hospital today with concern for ICD firing on (secondary to vfib) in the setting of 3 days of increased dyspnea with exertion and palpitations. Patient with concern for mild CHF exacerbation with elevated BNP and congestion seen on CXR. - Patient Problems (1) Acute systolic (congestive) heart failure Code(s): I50.21 - ACUTE SYSTOLIC (CONGESTIVE) HEART FAILURE Comment: Suspect secondary to dietary indiscretion and overexertion while camping through the summer and fall. History of severe cardiomyopathy with EF 20-25%. Patient not interested in any non-invasive/invasive work up and plans to call Dr. Tavarez this week to follow-up. Baseline weight per patient is 140 lbs, admission weight 155 lbs. Plan to continue IV diuresis today, resume home regimen tomorrow. (2) AICD (automatic cardioverter/defibrillator) present Code(s): Z95.810 - PRESENCE OF AUTOMATIC (IMPLANTABLE) CARDIAC DEFIBRILLATOR Comment: ICD interrogation shows SVT, v-tach over the past 3 days prior to admission One episode of V-fib on around 1500, s/p ICD shock No further episodes here in the hospital (3) Atrial fibrillation Code(s): I48.91 - UNSPECIFIED ATRIAL FIBRILLATION Comment: Rate controlled Continue digoxin, metoprolol. (4) Chronic respiratory failure Code(s): J96.10 - CHRONIC RESPIRATORY FAILURE, UNSP W HYPOXIA OR HYPERCAPNIA Comment: Stable Chronically on home O2 at 5-6Lnc (5) HTN (hypertension) Code(s): I10 - ESSENTIAL (PRIMARY) HYPERTENSION Comment: Normotensive Continue lisinopril, metoprolol (6) Hypokalemia Code(s): E87.6 - HYPOKALEMIA Comment: Resolved Continue daily K+ supplementation (7) Chronic pain Code(s): G89.29 - OTHER CHRONIC PAIN Comment: Stable Continue oxycodone SR (8) DVT prophylaxis Comment: INR 2.17 Continue warfarin Status and Disposition: OBV to inpatient. D/c to home when medically stable.
[2016-12-21] MEDS ORDERED: Furosemide IV* 10 MG/ML VIAL (40 MG) IV SLOW PU ONE (09:10)
[2016-12-21] MEDS: Furosemide IV* 10 MG/ML 2 ML VIAL (20 MG) IV SLOW PU ONE ×2 (09:40→11:21)
[2016-12-21] MEDS: Cyanocobalamin TAB* 500 MCG PO SCH ×2 (09:41→21:41)
[2016-12-21] MEDS: Ferrous Sulfate TAB* 325 MG PO SCH (09:41)
[2016-12-21] MEDS: Digoxin TAB* 0.125 MG PO SCH (09:42)
[2016-12-21] MEDS: Potassium Chlor TAB* 20 MEQ TAB.ER PO SCH (09:42)
[2016-12-21] MEDS: Magnesium Oxide TAB* 400 MG PO SCH ×2 (09:43→21:41)
[2016-12-21] MEDS: Spironolactone TAB* 25 MG PO SCH (10:08)
[2016-12-21] MEDS ORDERED: Furosemide IV* 10 MG/ML 2 ML VIAL (20 MG) IV SLOW PU ONE (16:21)
[2016-12-21] MEDS: Warfarin TAB(*) 6 MG PO SCH (16:49)
[2016-12-21] MEDS ORDERED: Potassium Chlor TAB* 20 MEQ TAB.ER PO ONE (20:32)
[2016-12-21] MEDS: Metoprolol Succinate XL TAB* 100 MG PO SCH (21:39)
[2016-12-22] MEDS: Levothyroxine TAB* 75 MCG TAB PO SCH (05:40)
[2016-12-22] MEDS: oxyCODONE SR TAB(*) 40 MG TAB.SR PO SCH ×3 (05:40→22:29)
--- NOTE | 2016-12-22 08:23 | ED ---
Temo Mitchell Angela, scribed for Ray Metcalf MD on 12/20/16 at 1704 . Shortness of Breath - HPI Summary HPI Summary: This pt is a 75 y/o female presenting to [facility] c/o SOB and ICD went off yesterday. Pt reports that her hear beat was beating quite rapid and her defibrillator went off. She reports that lately she has been doing more work than usual. Pt states feeling generalized weakness and having LE edema. Pt takes diuretics. She denies chest pain. Pt is on home O2 at home. - History of Current Complaint Chief Complaint: EDShortnessOfBreath Time Seen by Provider: 12/20/16 16:44 Hx Obtained From: Patient Onset/Duration: Lasting Days, Still Present Timing: Constant Associated Signs & Symptoms: Edema - LE - Allergy/Home Medications Allergies/Adverse Reactions: Allergies Allergy/AdvReac Type Severity Reaction Status Date / Time Adhesive Tape Allergy itchiness Verified 11/19/16 13:16 Heparin Allergy Hives Verified 11/19/16 13:16 PACEMAKER -NO MRIs Allergy PACEMAKER Uncoded 11/19/16 13:16 -NO MRIs Home Medications: Home Medications Digoxin TAB* [Lanoxin TAB*] 0.125 mg PO DAILY 12/20/16 [History Confirmed ] Esomeprazole(NF) [NexIUM(NF)] 40 mg PO DAILY 12/20/16 [History Confirmed ] Lactulose* 30 ml PO DAILY 12/20/16 [History Confirmed 12/20/16] Methocarbamol TAB* [Robaxin 500 MG TAB*] 500 mg PO QID PRN 12/20/16 [History Confirmed 12/20/16] Spironolactone TAB* [Aldactone TAB*] 100 mg PO DAILY 12/20/16 [History Confirmed 12/20/16] Warfarin TAB(*) [Coumadin TAB(*)] 6 mg PO DAILY@1700 12/20/16 [History Confirmed 12/20/16] PMH/Surg Hx/FS Hx/Imm Hx Endocrine/Hematology History: Reports: Hx Thyroid Disease - hypothyroidism Denies: Hx Diabetes Cardiovascular History: Reports: Hx Auto Implanted Cardiovert Defib - AICD, Hx Congestive Heart Failure - CHRONIC, Hx Coronary Artery Disease, Hx Embolism, Hx Hypercholesterolemia, Hx Hypertension, Hx Pacemaker/ICD, Other Cardiovascular Problems/Disorders - NON ISCHEMIC CARDIOMYOPATHY Respiratory History: Reports: Other Respiratory Problems/Disorders - HOME O2 Denies: Hx Asthma, Hx Chronic Obstructive Pulmonary Disease (COPD) GI History: Reports: Hx Gall Bladder Disease, Hx Gastroesophageal Reflux Disease , Hx Ulcer - bleeding, Other GI Disorders - PUD History: Denies: Hx Renal Disease Musculoskeletal History: Reports: Hx Arthritis, Hx Back Problems, Other Musculoskeletal History - chronic pain, back, hips, knees Sensory History: Reports: Hx Contacts or Glasses, Other Sensory Impairments - dentures Denies: Hx Hearing Aid Opthamlomology History: Reports: Hx Contacts or Glasses, Other Sensory Impairments - dentures Neurological History: Reports: Hx Migraine, Hx Transient Ischemic Attacks (TIA) - Surgical History Surgery Procedure, Year, and Place: APR 16, 2011 ICD PACER. gallbladder removed 1999. 12 rods placed in back ~10 years ago. hysterectomy Infectious Disease History: No Infectious Disease History: Reports: Hx of Known/Suspected MRSA Denies: Hx Hepatitis, History Other Infectious Disease, Traveled Outside the [place] in Last 30 Days - Family History Known Family History: Positive: Cardiac Disease - Social History Lives: With Family - boyfriend Alcohol Use: Occasionally Hx Substance Use: No Substance Use Type: Reports: None Hx Tobacco Use: No Smoking Status (MU): Never Smoked Tobacco Review of Systems Negative: Fever, Chills Eyes: Negative ENT: Negative Positive: Palpitations - fast heart beat, today resolved after defibrillator went off. Negative: Chest Pain Positive: Shortness Of Breath Positive: Edema - LE Positive: Weakness - generalized. Negative: Headache All Other Systems Reviewed And Are Negative: Yes Physical Exam - Summary Physical Exam Summary: VITAL SIGNS: Reviewed. GENERAL: Patient is a well-developed and nourished female who is lying comfortable in the stretcher with oxygen. Patient is not in any acute respiratory distress. HEAD AND FACE: No signs of trauma. No ecchymosis, hematomas or skull depressions. No sinus tenderness. EYES: PERRLA, EOMI x 2, No injected conjunctiva, no nystagmus. EARS: Hearing grossly intact. Ear canals and tympanic membranes are within normal limits. MOUTH: Oropharynx within normal limits. NECK: Supple, trachea is midline, no adenopathy, no JVD, no carotid bruit, no c- spine tenderness, neck with full ROM. CHEST: Symmetric, no tenderness at palpation LUNGS: Clear to auscultation bilaterally. No wheezing or crackles. CVS: Regular rate and rhythm, S1 and S2 present, no murmurs or gallops appreciated. ABDOMEN: Soft, non-tender. No signs of distention. No rebound no guarding, and no masses palpated. Bowel sounds are normal. EXTREMITIES: FROM in all major joints, no edema, no cyanosis or clubbing. NEURO: Alert and oriented x 3. No acute neurological deficits. Speech is normal and follows commands. SKIN: Dry and warm Triage Information Reviewed: Yes Vital Signs On Initial Exam: Initial Vitals Temp Pulse Resp BP Pulse Ox 98.5 F 83 20 133/52 98 12/20/16 16:41 12/20/16 16:41 12/20/16 16:41 12/20/16 16:41 12/20/16 16:41 Vital Signs Reviewed: Yes - [place] Coma Scale Coma Scale Total: 15 Diagnostics - Vital Signs Vital Signs Temp Pulse Resp BP Pulse Ox 12/20/16 16:47 85 99 12/20/16 16:45 133/52 12/20/16 16:41 98.5 F 83 20 133/52 98 - Laboratory Result Diagrams: 12/20/16 17:48 12/20/16 17:48 Lab Statement: Any lab studies that have been ordered have been reviewed, and results considered in the medical decision making process. - Radiology Chest XR Radiology Interpretation Completed By: [facility] - [facility] pending official report. - EKG 18:14 Cardiac Rate: Other Rate - atrial ventricular pace at 70 bpm. EKG Comparison: No Significant Change - similar to prior EKG on 07/13/16. Course/Dx - Course Assessment/Plan: This pt is a 75 y/o female presenting to [facility] c/o SOB and ICD went off yesterday. Pt reports that her hear beat was beating quite rapid and her defibrillator went off. She reports that lately she has been doing more work than usual. Pt states feeling generalized weakness and having LE edema. Pt takes diuretics. She denies chest pain. Pt is on home O2 at home. Test results without any significant abnormalities, potassium of 3, glucose of 134, magnesium of 1.8, troponin is 0.04. BNP is 1934. EKG shows atrial ventricular pace at 70 bpm, similar to 07/13/16. Pt was given aspirin and Lasix for COPD exacerbation. At this point I discussed the case with Dr. Freeman who accepted the pt for admission for further work up and management. Pt is hemodynamically stable, alert and oriented x3. - Diagnoses Provider Diagnoses: COPD exacerbation - Physician Notifications Discussed Care of Patient With: Enmanuel Freeman Time Discussed With Above Provider: 18:36 Instructed by Provider To: Other - I discussed the pt's case with Dr. Freeman. He has agreed to accept the pt. Discharge - Discharge Plan Condition: Stable Disposition: ADMITTED TO [facility] Referrals: Gregory Edge MD [Primary Care Provider] - The documentation as recorded by the Teom olivier Angela accurately reflects the service I personally performed and the decisions made by , Ray Metcalf MD.
[2016-12-22] MEDS: Torsemide TAB* 20 MG PO SCH (09:38)
[2016-12-22] MEDS: Potassium Chlor TAB* 20 MEQ TAB.ER PO SCH (09:39)
[2016-12-22] MEDS: Magnesium Oxide TAB* 400 MG PO SCH ×2 (09:39→22:29)
[2016-12-22] MEDS: Ferrous Sulfate TAB* 325 MG PO SCH (09:39)
[2016-12-22] MEDS: Cyanocobalamin TAB* 500 MCG PO SCH ×2 (09:40→22:29)
[2016-12-22] MEDS: Digoxin TAB* 0.125 MG PO SCH (09:40)
[2016-12-22] MEDS: Lisinopril TAB* 5 MG PO SCH (09:40)
[2016-12-22] MEDS: Spironolactone TAB* 25 MG PO SCH (09:41)
[2016-12-22 10:25] LABS: Hematocrit 40 % (35-47); Hemoglobin 12.9 g/dl (12.0-16.0); Mean Corpuscular HGB Conc 32 g/dl (31-36); Mean Corpuscular Hemoglobin 33 pg (27-31); Mean Corpuscular Volume 102 fL (80-97); Mean Platelet Volume 7 um3 (7.4-10.4); Red Cell Distribution Width 15 % (10.5-15); White Blood Count 6.3 10^3/ul (3.5-10.8)
[2016-12-22 10:43] LABS: BUN/Creatinine Ratio 25.3 (8-20); Calcium 9.3 mg/dL (8.6-10.3); EGFR African American 81.9 (>60); EGFR Non-African American 63.6 (>60); Potassium 4.8 mmol/L (3.5-5.0)
--- NOTE | 2016-12-22 12:43 | PN ---
Subjective Date of Service: 12/22/16 Interval History: Patient seen and evaluated at the bedside. She is found to be sitting up in bed watching tv. She reports she continues to feel "weak" which is her biggest compliant. She denies CP or SOB. No orthopnea. She reports little LE edema but states this is better today. Denies cough. No recent fever/chills. Reports good appetite. Pt reports she "sometimes doesnt take metoprolol" it is noted she has not filled her prescription in [address] Lynds[facility]. Family History: Unchanged from Admission Social History: Unchanged from Admission Past Medical History: Unchanged from Admission Objective Active Medications: Cyanocobalamin (Vitamin B12 Tab*) 1,000 mcg PO BID [facility] Last Admin: 12/22/16 09:40 Dose: 1,000 mcg Digoxin (Lanoxin Tab*) 0.125 mg PO DAILY [facility] Last Admin: 12/22/16 09:40 Dose: 0.125 mg Ferrous Sulfate (Ferrous Sulfate Tab*) 325 mg PO DAILY [facility] Last Admin: 12/22/16 09:39 Dose: 325 mg Lactulose (Lactulose*) 30 ml PO DAILY [facility] Last Admin: 12/22/16 09:42 Dose: Not Given Levothyroxine Sodium (Synthroid Tab*) 75 mcg PO 0600 [facility] Last Admin: 12/22/16 05:40 Dose: 75 mcg Lisinopril (Prinivil Tab*) 5 mg PO DAILY [facility] Last Admin: 12/22/16 09:40 Dose: 5 mg Magnesium Oxide (Magox 400 Tab*) 400 mg PO BID [facility] Last Admin: 12/22/16 09:39 Dose: 400 mg Methocarbamol (Robaxin Tab*) 500 mg PO QID PRN PRN Reason: SPASMS - MUSCLE Metoprolol Succinate (Toprol Xl Tab*) 100 mg PO BEDTIME [facility] Last Admin: 12/21/16 21:39 Dose: 100 mg Ondansetron HCl (Zofran Tab*) 4 mg PO Q6H PRN PRN Reason: NAUSEA Oxycodone HCl (Roxycodone Tab*) 20 mg PO Q6H PRN PRN Reason: PAIN Last Admin: 12/22/16 09:41 Dose: 20 mg Oxycodone HCl (Oxycontin(*)) 80 mg PO Q8HR [facility] Last Admin: 12/22/16 05:40 Dose: 80 mg Potassium Chloride (Klor Con Er Tab*) 20 meq PO DAILY [facility] Last Admin: 12/22/16 09:39 Dose: 20 meq Spironolactone (Aldactone Tab*) 100 mg PO DAILY [facility] Last Admin: 12/22/16 09:41 Dose: 100 mg Torsemide (Demadex*) 40 mg PO DAILY [facility] Last Admin: 12/22/16 09:38 Dose: 40 mg Warfarin Sodium (Coumadin Tab(*)) 6 mg PO DAILY@1700 [facility] PRN Reason: Protocol Last Admin: 12/21/16 16:49 Dose: 6 mg Vital Signs 12/21/16 12/21/16 12/21/16 16:06 16:24 19:42 Temperature 97.4 F Pulse Rate 69 Respiratory 18 14 16 Rate Blood Pressure 115/67 (mmHg) O2 Sat by Pulse 98 Oximetry 12/21/16 12/21/16 12/21/16 19:52 21:41 23:41 Temperature 98.3 F Pulse Rate 70 Respiratory 20 16 16 Rate Blood Pressure 124/56 (mmHg) O2 Sat by Pulse 98 Oximetry 12/22/16 12/22/16 12/22/16 00:05 03:06 05:40 Temperature 97.7 F 98.0 F Pulse Rate 70 70 Respiratory 16 16 16 Rate Blood Pressure 123/53 118/54 (mmHg) O2 Sat by Pulse 98 100 Oximetry 12/22/16 12/22/16 12/22/16 06:55 07:40 07:48 Temperature 98.2 F Pulse Rate 70 Respiratory 20 18 16 Rate Blood Pressure 117/63 (mmHg) O2 Sat by Pulse 97 Oximetry 12/22/16 12/22/16 12/22/16 09:40 09:41 10:56 Temperature 97.7 F Pulse Rate 70 70 Respiratory 20 20 Rate Blood Pressure 130/36 (mmHg) O2 Sat by Pulse 97 Oximetry Oxygen Devices in Use Now: Nasal Cannula - 6Lnc Appearance: 75 yo chronically ill appearing female sitting up on the side of the bed in NAD, A+Ox3. Poor-fair historian. Eyes: No Scleral Icterus, PERRLA Ears/Nose/Mouth/Throat: NL Teeth, Lips, Gums, Mucous Membranes Moist Neck: NL Appearance and Movements; NL JVP Respiratory: Symmetrical Chest Expansion and Respiratory Effort, Clear to Auscultation Cardiovascular: RRR, - - trace edema b/l LE Abdominal: NL Sounds; No Tenderness; No Distention, - - obese Extremities: No Clubbing, Cyanosis Skin: - - chronic venouse stasis changes to LE b/l Neurological: Alert and Oriented x 3, NL Sensation, NL Muscle Strength and Tone Lines/Tubes/Other Access: Clean, Dry and Intact Peripheral IV Nutrition: Taking PO's Result Diagrams: 12/22/16 10:16 12/22/16 10:16 Microbiology and Other Data: Microbiology 12/20/16 23:16 Nasal Screen MRSA (PCR)(DAVID) - Final Nasal Mrsa Positive Assess/Plan/Problems-Billing Assessment: Ms. Bain is a 75 yo female with a PMH significant for multiple myocardial infarctions, severe ischemic cardiomyopathy with EF 20% to 25%, chronic hypoxic respiratory failure with chronic use of 6Lnc, afib, and HTN, who presents to the hospital today with concern for ICD firing on (secondary to vfib) in the setting of 3 days of increased dyspnea with exertion and palpitations. Patient with concern for mild CHF exacerbation with elevated BNP and congestion seen on CXR. - Patient Problems (1) Acute systolic (congestive) heart failure Comment: Improved with IV lasix - restart home meds. Weight down 2 lbs today. Per pt baseline weight in 140 but looking back at the last year her baseline weight have been around 150-160lb. Today she is 152lbs. Suspect secondary to dietary indiscretion, noncompliance with meds, runs of vtach History of severe cardiomyopathy with EF 20-25%. Dr. Corby Hansen cards follows as outpt Continue home regimen with lisinopril, toresemide, metoprolol, spironlactone (2) AICD (automatic cardioverter/defibrillator) present Comment: ICD interrogation shows SVT, v-tach over the past 3 days prior to admission One episode of V-fib on around 1500, s/p ICD shock Today 9 beats of vtach noted, pt asymptomatic but reports generalized weakness. Trops 0.04 x3 consistent with baseline. EKG showing apaced. Monitor Mg+, K+ daily and replace as needed Cardiology consult placed. It is noted back in July she was seen inpatient by Dr. 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 Umana), per patient she has not had any new medications since that time. There was a question on admission of her telling the provider she had "1 new med" but today she denies this. Her pharmacy was called and there are no new medications in the past 6 months. (3) Atrial fibrillation Comment: Rate controlled Continue digoxin, metoprolol. Therapeutic on Coumadin Check dig level (4) Chronic pain Comment: Stable Continue oxycodone SR (5) HTN (hypertension) Comment: Normotensive Continue lisinopril, metoprolol (6) DVT prophylaxis Comment: INR 2.02 Continue warfarin (7) DVT prophylaxis Comment: - coumadin - Encourage ambulation. Status and Disposition: inpatient. D/c to home when medically stable.
[2016-12-22 16:25] LABS: Digoxin 0.7 ng/ml (0.8-2.0)
[2016-12-22] MEDS: Warfarin TAB(*) 6 MG PO SCH (16:56)
[2016-12-22] MEDS: Metoprolol Succinate XL TAB* 100 MG PO SCH (22:24)
--- NOTE | 2016-12-23 01:46 | CONS ---
CC: Dr. Yonas Worthy MD; Hospitalist Service; Dr. Contreras Tavarez* CONSULTATION REPORT: DATE OF CONSULTATION: 12/22/16 REASON FOR CONSULTATION: AICD shock and shortness of breath. HISTORY OF PRESENT ILLNESS: Ms. Bain is a 75-year-old woman with a history of severe cardiomyopathy, AICD, and history of mitral valve repair. The patient told me that she was camping although admission notes documented she [place] in [place] They were getting ready to return home, and she was getting weak and shortness of breath with racing of the heart intermittently. Her AICD then fired, and she presented to the emergency department. Interrogation of the AICD confirmed multiple episodes of nonsustained ventricular tachycardia including the sustained event for which she received an appropriate shock. The patient admits to some dietary noncompliance eating foods such as hot dogs and other high salt foods. The patient was a bit vague on her medications. As such, she has been compliant , but the hospitalist service had called the pharmacy and her metoprolol was not been filled in over 6 months. PAST MEDICAL HISTORY: For past medical history, I have conflicting reports from the Hospitalist compared with past consultation report from July of this year from Dr. Shipman. Per Dr. Shipman: 1. Cardiac catheterization in 2010 was negative for coronary disease. 2. History of mitral valve repair. 3. Ygeqsbxc-to-onmqct tricuspid insufficiency. 4. Ejection fraction 20% to 25% on echo in 2015. 5. AICD. 6. History of TIA. 7. Current congestive heart failure. 8. Ventricular tachycardia. 9. Peptic ulcer disease. 10. Migraines. 11. Degenerative arthritis. Please note that the Hospitalist notes document past history of: 1. Myocardial infarctions. 2. Paroxysmal atrial fibrillation. 3. Peripheral vascular disease. 4. Hypothyroid disease. OUTPATIENT MEDICATIONS: Probably not accurate, but based on ED evaluation included: 1. Coumadin. 2. Torsemide 40 mg a day. 3. Aldactone 100 mg a day. 4. Potassium 20 mEq a day. 5. Oxycodone 6. Ondansetron. 7. Toprol XL 100 mg q.h.s. 8. Robaxin 500 mg 4 times a day. 9. Magnesium oxide 400 mg b.i.d. 10. Lisinopril 5 mg a day. 11. Levothyroxine 75 mcg a day. 12. Lactulose. 13. Iron sulfate. 14. Digoxin 0.125 mg a day. 15. Vitamin B12. Home medications included: 1. Torsemide 20 mg a day. 2. Toprol XL 100 mg a day. 3. Lisinopril 5 mg a day. 4. Levothyroxine 75 mcg a day. 5. Digoxin 0.125 mg a day. 6. Magnesium oxide 400 mg b.i.d. 7. Potassium 20 mEq a day. 8. Oxycodone. 9. Detrol LA. 10. Zofran p.r.n. 11. Robaxin 500 mg 4 times a day. 12. Lactulose 30 mg a day. 13. Voltaren gel topical. 14. Vitamin B12. 15. Nexium 40 mg a day. 16. Coumadin. ALLERGIES: Included ADHESIVE TAPE and HEPARIN. FAMILY HISTORY: Positive for mother having heart disease from which she . 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 No current alcohol or tobacco use. REVIEW OF SYSTEMS: A 14-point review of systems was attempted. She denies recent fevers, chills, sweats. She admitted to dietary noncompliance, is vague about medications, and does not have bottles with her. No recent change in bowel or bladder habits. No hematuria, dysuria. Significant for recent palpitations, increased shortness of breath, and weakness. All other review of systems negative. PHYSICAL EXAMINATION: On exam, the patient is 5 feet 5 inches, weighs 152 pounds with a BMI of 25. Blood pressure on arrival to the emergency department was 132/52, pulse was 83, oxygen saturation 98% and she was afebrile. Current vitals show blood pressure 124/62, pulse of 70, respiratory rate 16, oxygen saturation 95% on room air, temperature 97.3. General Appearance: Elderly woman, seated smiling, pleasant, does not appear in acute distress. Psychologically, pleasant, somewhat cooperative. Neurologically, awake, alert, oriented to person and place. I did not evaluate for time. Skin: Warm and dry. AICD pocket on the left, unremarkable. No cyanosis. HEENT: Pupils equal and round. Mucous membranes are moist. Neck: Without appreciable increased JVP. Breath sounds somewhat diminished in the bases, but no rales or crackles heard. Coronary: S1, S2. Regular with frequent extra systoles. No murmurs or rubs. Abdomen: Soft and nontender. Lower extremities were free of edema. She ambulated in the room comfortably. DIAGNOSTIC STUDIES/LABORATORY DATA: White count 6.3, hemoglobin 12.9, hematocrit 40, mean cell volume 144, INR 2.02. Sodium 139, potassium 4.8, chloride 101, bicarb 34, BUN 22, creatinine 0.9, glucose 144, troponin #1 0.04, troponin #2 0.04, troponin #3 0.04, BNP 1934. TSH 0.64. Urinalysis 2+ protein. Positive for urobilinogen, digoxin 0.7. Microbiology, MRSA positive. Left knee x-ray, 12/20/16, showed knee replacement, unremarkable. I cannot find chest x-ray that looks like it was probably done. A 12-lead ECG from 12/20/16 shows normal sinus rhythm, 70 beats a minute, QRS axis +30. Normal AV and IV conduction times, incomplete right bundle branch block in V1, flattened ST and T-waves diffusely. AICD interrogation done on admission confirms she has a [employer] ICD. The patient's lead impedance has increased recently this month concerning for destabilization of congestive heart failure. Battery status is about a third of maximum. Adan programming is dual chamber at a low rate of 70 beats a minute. She monitors ventricular tachycardia of 150 beats to 199 beats and she has therapy of 200 beats a minute or greater with ATP x1 followed by defibrillation. The patient has had multiple nonsustained tachycardic episodes on 12/19/16 and 12/20/16 as well as supraventricular tachycardic episodes. The patient's ICD firing event was reviewed and was appropriate. Echocardiogram from 04/05/15, the most recent in our system, showed an ejection fraction of 20% to 25%, biatrial enlargement, right ventricular systolic function moderately diminished, aortic valve sclerosis, mild mitral insufficiency, mild mitral stenosis with right restriction, post mitral valve repair, severe tricuspid insufficiency and PA pressure estimated at 56 mmHg. IMPRESSION: In summary, Felicia Bain is a 75-year-old woman with severe cardiomyopathy, AICD for ventricular tachycardia, admitted with palpitations, weakness, AICD firing and evidence of congestive heart failure. I suspect there is a component of dietary indiscretion as well as it is very concerning if she is not taking her antiarrhythmic as is suspected by the Hospitalist. On arrival, her potassium was 3.0 and magnesium 1.8, and this may be iatrogenic related to her aggressive diuresis. I agree with continuation of loop diuretics and the addition/continuation of Aldactone, we are going to have to watch her potassium very closely on such a high dose of Aldactone, and we will need to watch sodium too as she will be at risk for hyponatremia as well. I have asked the patient to bring her medication bottles in via her family. I think we need to review what she is actually taking before adding medications. She is understanding and agreeable of this. 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 Additional recommendations will be made pending her response to her inpatient medications. Thank you for allowing me to assist in this nice woman's care. [id number]/[facility] #: [id number] MARISOL
[2016-12-23] MEDS: oxyCODONE SR TAB(*) 40 MG TAB.SR PO SCH ×3 (06:28→21:27)
[2016-12-23] MEDS: Levothyroxine TAB* 75 MCG TAB PO SCH (06:29)
[2016-12-23] MEDS ORDERED: Perflutren Lipid Microsphere* 3 ML VIAL ONE (07:55)
[2016-12-23] MEDS: Spironolactone TAB* 25 MG PO SCH (09:07)
[2016-12-23] MEDS: Digoxin TAB* 0.125 MG PO SCH (09:07)
[2016-12-23] MEDS: Torsemide TAB* 20 MG PO SCH (09:07)
[2016-12-23] MEDS: Potassium Chlor TAB* 20 MEQ TAB.ER PO SCH (09:07)
[2016-12-23] MEDS: Cyanocobalamin TAB* 500 MCG PO SCH ×2 (09:07→21:28)
[2016-12-23] MEDS: Magnesium Oxide TAB* 400 MG PO SCH ×2 (09:07→21:28)
[2016-12-23] MEDS: Ferrous Sulfate TAB* 325 MG PO SCH (09:07)
[2016-12-23] MEDS: Lisinopril TAB* 5 MG PO SCH (09:07)
[2016-12-23 09:10] LABS: BUN/Creatinine Ratio 28.3 (8-20); Calcium 9.3 mg/dL (8.6-10.3); EGFR African American 76.7 (>60); EGFR Non-African American 59.7 (>60); Magnesium 2.2 mg/dL (1.9-2.7); Potassium 4.7 mmol/L (3.5-5.0)
--- NOTE | 2016-12-23 09:53 | PN ---
Subjective Date of Service: 12/23/16 Interval History: Patient seen and examined at bedside. Patient states her breathing feels much better. It appears from Cardiology notes that in 04/2016 her Toprol was increased to 200mg qAM and 100mg qPM. At some point the patient was taken off Toprol possibly by her PCP and is now on 25mg Carvedilol BID. Patient states that she was having stomach issues and that is why she thinks she was taken off of the medication. Now patients states she feels weak but denies SOB. Leg swelling improved. Family History: Unchanged from Admission Social History: Unchanged from Admission Past Medical History: Unchanged from Admission Objective Active Medications: Cyanocobalamin (Vitamin B12 Tab*) 1,000 mcg PO BID GABRIELLA Digoxin (Lanoxin Tab*) 0.125 mg PO DAILY GABRIELLA Ferrous Sulfate (Ferrous Sulfate Tab*) 325 mg PO DAILY GABRIELLA Lactulose (Lactulose*) 30 ml PO DAILY GABRIELLA Levothyroxine Sodium (Synthroid Tab*) 75 mcg PO 0600 GABRIELLA Lisinopril (Prinivil Tab*) 5 mg PO DAILY GABRIELLA Magnesium Oxide (Magox 400 Tab*) 400 mg PO BID GABRIELLA Methocarbamol (Robaxin Tab*) 500 mg PO QID PRN Metoprolol Succinate (Toprol Xl Tab*) 100 mg PO BEDTIME GABRIELLA Ondansetron HCl (Zofran Tab*) 4 mg PO Q6H PRN Oxycodone HCl (Roxycodone Tab*) 20 mg PO Q6H PRN Oxycodone HCl (Oxycontin(*)) 80 mg PO Q8HR [facility] Potassium Chloride (Klor Con Er Tab*) 20 meq PO DAILY GABRIELLA Spironolactone (Aldactone Tab*) 100 mg PO DAILY GABRIELLA Torsemide (Demadex*) 40 mg PO DAILY GABRIELLA Warfarin Sodium (Coumadin Tab(*)) 6 mg PO DAILY@1700 [facility] 12/23/16 12/23/16 09:01 09:07 Temperature 97.7 F Pulse Rate 70 70 Respiratory 18 Rate Blood Pressure 117/31 (mmHg) O2 Sat by Pulse 100 Oximetry Oxygen Devices in Use Now: Nasal Cannula Appearance: sitting up in bed, NAD Eyes: No Scleral Icterus Ears/Nose/Mouth/Throat: NL Teeth, Lips, Gums, Mucous Membranes Moist Neck: NL Appearance and Movements; NL JVP Respiratory: Symmetrical Chest Expansion and Respiratory Effort, Clear to Auscultation Cardiovascular: NL Sounds; No Murmurs; No JVD, RRR Abdominal: NL Sounds; No Tenderness; No Distention Extremities: - - 2+ edema Skin: No Rash or Ulcers Neurological: Alert and Oriented x 3, NL Muscle Strength and Tone Lines/Tubes/Other Access: Clean, Dry and Intact Peripheral IV Nutrition: Taking PO's Result Diagrams: 12/22/16 10:16 12/23/16 08:38 Assess/Plan/Problems-Billing Ms. Bain is a 75 yo female with a PMH significant for multiple myocardial infarctions, severe ischemic cardiomyopathy with EF 20% to 25%, chronic hypoxic respiratory failure with chronic use of 6Lnc, afib, and HTN, who presents to the hospital today with concern for ICD firing on (secondary to vfib) in the setting of 3 days of increased dyspnea with exertion and palpitations. Patient with concern for mild CHF exacerbation with elevated BNP and congestion seen on CXR. - Patient Problems (1) Acute systolic (congestive) heart failure Comment: Improved; Continue home torsemide. Weight today 151. Suspect secondary to dietary indiscretion, noncompliance with meds, runs of vtach.Continue home regimen with lisinopril, toresemide, metoprolol, spironlactone. From records it appears that she was taken off Metoprolol at some point and was placed on Carvedilol. Will d/w cardiology but likely she needs metoprolol at increased dose. (2) Ventricular tachyarrhythmia Comment: ICD interrogation shows SVT, v-tach over the past 3 days prior to admission. One episode of V-fib on around 1500, s/p ICD shock. Restarted on Metoprolol here and her cardiology note from 04/2016 Metoprolol increased to 200mg qAm and 100mg qPM. At some point she was switched to Carvedilol possibly by PCP as PCP notes from 08/2016 and 12/2016 state she is on carvedilol. Cardiology consult placed. It is noted back in July she was seen inpatient by Dr. Shipman who recommended antirythmic medication at that time (which was deferred to her front desk auxiliary Dr. Umana), per patient she has not had any new medications since that time. There was a question on admission of her telling the provider she had "1 new med" but today she denies this. Her pharmacy was called and there are no new medications in the past 6 months. (3) AICD (automatic cardioverter/defibrillator) present Comment: No further episodes on tele of ICD firing. Replete electrolytes and contine Toprol. (4) Atrial fibrillation Comment: Rate controlled. Dig level slightly low (0.7). Unclear about compliance. Continue metoprolol and warfarin (therapeutic INR). (5) Chronic pain Comment: Stable. Continue oxycodone SR (6) HTN (hypertension) Comment: Normotensive. Continue lisinopril, metoprolol (7) DVT prophylaxis Comment: INR 2.0. Continue Warfarin. (8) Full code status Status and Disposition: Inpatient. D/c to home when medically stable.
[2016-12-23] MEDS ORDERED: Metoprolol Succinate XL TAB* 100 MG PO ONE (11:11)
--- NOTE | 2016-12-23 11:44 | ECHO ---
Patient: AFTAB JETT [facility] Rec#: [id number] : 1940 Date: 12/23/2016 Age: 75y Height: 165.1 cm / 65.0 in Weight: 68.95 kg / 152.0 lbs Sex: F BSA: 1.76 Room#: 453 Admit Date#: 12/21/2016 Type: Inpatient Referring: Mercedes Guevara Reading: Mat Shipman MD Crosstie Inspector: Carmencita Lloyd,SIDNEYCS,RDMS CC: Contreras Tavarez CC: Gregory Edge MD Transthoracic Echocardiogram Indication: SOB, VTACH BP: 109/51 HR: 80 Rhythm: NSR Findings History: CAD, IA, cardiomyopathy, paroxysmal AFIB, HTN, MV ring Technical Comments: The study quality is fair. Completed 0830 Left Ventricle: The left ventricular chamber size is normal. Mild concentric left ventricular hypertrophy is observed. Severe global hypokinesis of the left ventricle is observed. There is severely decreased left ventricular systolic function. The estimated ejection fraction is 20-25%. There is septal flattening of the interventricular septum consistent with right ventricular volume or pressure overload. Abnormal left ventricular diastolic function is observed. Left Atrium: The left atrium is severely dilated. Right Ventricle: The right ventricle is moderately dilated. The right ventricular global systolic function is moderately reduced. A pacemaker wire is visualized in the right ventricle. Right Atrium: The right atrial cavity size is severely dilated. A pacemaker wire is visualized in the right atrium. Aortic Valve: The aortic valve is trileaflet. The aortic valve leaflets are mildly thickened. There is a trace of aortic regurgitation. There is no evidence of aortic stenosis. Mitral Valve: There is a trace of mitral regurgitation. The mean gradient across the mitral valve is 3.9 mmHg. The mitral valve area, by pressure half time, is calculated at 2.9 cm2. Mitral valve repair functioning normally. Tricuspid Valve: The tricuspid valve leaflets are normal. There is moderate tricuspid regurgitation. There is evidence of moderate pulmonary hypertension. Pulmonic Valve: There is no evidence of pulmonic valve thickening. There is a trace pulmonic regurgitation. Pericardium: There is no significant pericardial effusion. Aorta: The aortic root appears normal. There is no dilatation of the aortic arch. Pulmonary Artery: The main pulmonary artery appears normal. Venous: The inferior vena cava is dilated. There is less than 50% respiratory change in the inferior vena cava dimension. Contrast: Definity was used to optimize study. A total of 3 ml was used Summary: There are no significant changes when compared to the previous study done on 04/05/15 Conclusions Mild concentric left ventricular hypertrophy is observed. There is severely decreased left ventricular systolic function. The estimated ejection fraction is 20-25%. There is septal flattening of the interventricular septum consistent with right ventricular volume or pressure overload. The right ventricular global systolic function is moderately reduced. There is no evidence of aortic stenosis. There is a trace of mitral regurgitation. Mitral valve repair functioning normally. There is moderate tricuspid regurgitation. There is evidence of moderate pulmonary hypertension. There is no significant pericardial effusion. There are no significant changes when compared to the previous study done on 04/05/15 Measurements Name Value Normal Range RVIDd (AP) 2D 4.4 cm (0.9 - 2.6) RAd ISD 4CH 7.3 cm (3.4 - 4.9) RA (A4C)W 5 cm (2.9 - 4.6) IVSd (2D) 1.2 cm (0.6 - 1) LVPWd (2D) 1.5 cm (0.6 - 1) LVIDd (2D) 4.3 cm (3.6 - 5.4) LVIDs (2D) 4.5 cm - Aortic Annulus 2 cm (1.4 - 2.6) Ao root diameter (2D) 2.5 cm (2.1 - 3.5) Ascending Ao 3.1 cm (2.1 - 3.4) Aortic arch 2.9 cm (1.8 - 3.4) LA dimension (AP) 2D 5.7 cm (2.3 - 3.8) LAd ISD 4CH 6.5 cm (2.9 - 5.3) LA ISD 4CH W 4.6 cm (2.5 - 4.5) Name Value Normal Range LA ESV SP 4CH (A/L) 75.9 ml - LA ESV SP 2CH (A/L) 84.88 ml - LA ESV BP (A/L) 81.07 ml - LA ESV BP (A/L) index 46 ml/m2 - LA ESV SP 4CH (MOD) 73.05 ml - LA ESV SP 2CH (MOD) 82.06 ml - Name Value Normal Range MV E-wave Vmax 1.3 m/sec - MV deceleration time 203 msec - MV A-wave Vmax 1.1 m/sec - MV E:A ratio 1.1 ratio - LV septal e' Vmax 0.04 m/sec - LV lateral e' Vmax 0.03 m/sec - LV E:e' septal ratio 32.5 ratio - LV E:e' lateral ratio 43 ratio - Name Value Normal Range AV Vmax 1.6 m/sec - AV VTI 26.1 cm - AV peak gradient 10 mmHg - AV mean gradient 5 mmHg - LVOT diameter 2 cm - LVOT Vmax 0.9 m/sec - LVOT VTI 14.5 cm - LVOT peak gradient 3.6 mmHg - LVOT mean gradient 1.7 mmHg - DOI (VTI) 0.6 ratio - SV LVOT 45.25 ml - AUGUSTINE (continuity Vmax) 1.8 cm2 - AUGUSTINE (continuity VTI) 1.7 cm2 - VELIA Vmax 0.5 m/sec - Name Value Normal Range MV Vmax 1.5 m/sec - MV VTI 39 cm - MV peak gradient 9 mmHg - MV mean gradient 3.9 mmHg - MV PHT 75 msec - MVA (PHT) 2.9 cm2 - MVA (continuity VTI) 1.2 cm2 - Name Value Normal Range TR Vmax 2.6 m/sec - TR peak gradient 27 mmHg - RAP 15 mmHg - RVSP 42 mmHg - IVC diameter 2.4 cm - Name Value Normal Range PV Vmax 1 m/sec - PV peak gradient 4 mmHg -
[2016-12-23] MEDS: Warfarin TAB(*) 6 MG PO SCH (17:28)
[2016-12-23] MEDS: Metoprolol Succinate XL TAB* 100 MG PO SCH (21:27)
[2016-12-24] MEDS: oxyCODONE SR TAB(*) 40 MG TAB.SR PO SCH ×3 (05:05→22:03)
[2016-12-24] MEDS: Levothyroxine TAB* 75 MCG TAB PO SCH (05:06)
[2016-12-24] MEDS: Torsemide TAB* 20 MG PO SCH (09:29)
[2016-12-24] MEDS: Metoprolol Succinate XL TAB* 100 MG PO SCH ×2 (09:31→22:04)
[2016-12-24] MEDS: Ferrous Sulfate TAB* 325 MG PO SCH (09:35)
[2016-12-24] MEDS: Cyanocobalamin TAB* 500 MCG PO SCH ×2 (09:35→22:04)
[2016-12-24] MEDS: Potassium Chlor TAB* 20 MEQ TAB.ER PO SCH (09:36)
[2016-12-24] MEDS: Magnesium Oxide TAB* 400 MG PO SCH ×2 (09:36→22:04)
[2016-12-24] MEDS: Lisinopril TAB* 5 MG PO SCH (09:38)
[2016-12-24] MEDS: Digoxin TAB* 0.125 MG PO SCH (09:38)
[2016-12-24 11:46] LABS: Hematocrit 45 % (35-47); Mean Corpuscular HGB Conc 34 g/dl (31-36); Mean Corpuscular Hemoglobin 34 pg (27-31); Mean Corpuscular Volume 100 fL (80-97); Mean Platelet Volume 7 um3 (7.4-10.4); Red Blood Count 4.46 10^6/ul (4.0-5.4); Red Cell Distribution Width 15 % (10.5-15); White Blood Count 7.7 10^3/ul (3.5-10.8)
[2016-12-24 12:00] LABS: BUN/Creatinine Ratio 28.3 (8-20); Calcium 10.3 mg/dL (8.6-10.3); EGFR African American 76.7 (>60); EGFR Non-African American 59.7 (>60)
[2016-12-24 12:08] LABS: Troponin I 0.04 ng/mL (<0.04)
[2016-12-24] MEDS: Spironolactone TAB* 25 MG PO SCH (14:06)
--- NOTE | 2016-12-24 16:05 | PN ---
Subjective Date of Service: 12/24/16 Interval History: Patient seen and examined at bedside earlier in the day. Called by nurse to eval patient around 11am as she was diaphoretic. BG WNL and VS were stable. Patient reports feeling "not well" but unable to describe further. After a rest she then looked much better but still reporting weakness. She denies SOB, CP. Ambulating at baseline. Family History: Unchanged from Admission Social History: Unchanged from Admission Past Medical History: Unchanged from Admission Objective Active Medications: Cyanocobalamin (Vitamin B12 Tab*) 1,000 mcg PO BID GABRIELLA Digoxin (Lanoxin Tab*) 0.125 mg PO DAILY GABRIELLA Ferrous Sulfate (Ferrous Sulfate Tab*) 325 mg PO DAILY GABRIELLA Lactulose (Lactulose*) 30 ml PO DAILY G[facility]ELLA Levothyroxine Sodium (Synthroid Tab*) 75 mcg PO 0600 [facility] Lisinopril (Prinivil Tab*) 5 mg PO DAILY GABRIELLA Magnesium Oxide (Magox 400 Tab*) 400 mg PO BID GABRIELLA Methocarbamol (Robaxin Tab*) 500 mg PO QID PRN Metoprolol Succinate (Toprol Xl Tab*) 100 mg PO BID G[facility] Ondansetron HCl (Zofran Tab*) 4 mg PO Q6H PRN Oxycodone HCl (Roxycodone Tab*) 20 mg PO Q6H PRN Oxycodone HCl (Oxycontin(*)) 80 mg PO Q8HR [facility] Potassium Chloride (Klor Con Er Tab*) 20 meq PO DAILY G[facility] Spironolactone (Aldactone Tab*) 100 mg PO DAILY GABRIELLA Torsemide (Demadex*) 40 mg PO DAILY GABRIELLA Warfarin Sodium (Coumadin Tab(*)) 6 mg PO DAILY@1700 [facility] 12/24/16 12/24/16 10:55 14:06 Temperature 97.6 F Pulse Rate 69 Respiratory 24 20 Rate Blood Pressure 133/65 (mmHg) O2 Sat by Pulse 100 Oximetry Oxygen Devices in Use Now: Nasal Cannula, JUVENCIO Appearance: sitting up in bed, NAD Eyes: No Scleral Icterus, PERRLA Ears/Nose/Mouth/Throat: NL Teeth, Lips, Gums, Mucous Membranes Moist Neck: NL Appearance and Movements; NL JVP Respiratory: Symmetrical Chest Expansion and Respiratory Effort, Clear to Auscultation Cardiovascular: NL Sounds; No Murmurs; No JVD, RRR Abdominal: NL Sounds; No Tenderness; No Distention Extremities: No Edema Skin: No Rash or Ulcers Neurological: Alert and Oriented x 3, NL Muscle Strength and Tone Lines/Tubes/Other Access: Clean, Dry and Intact Peripheral IV Nutrition: Taking PO's Result Diagrams: 12/24/16 11:26 12/24/16 11:26 Assess/Plan/Problems-Billing Ms. Bain is a 75 yo female with a PMH significant for multiple myocardial infarctions, severe ischemic cardiomyopathy with EF 20% to 25%, chronic hypoxic respiratory failure with chronic use of 6Lnc, afib, and HTN, who presents to the hospital today with concern for ICD firing on (secondary to vfib) in the setting of 3 days of increased dyspnea with exertion and palpitations. Patient with concern for mild CHF exacerbation with elevated BNP and congestion seen on CXR. - Patient Problems (1) Acute systolic (congestive) heart failure Comment: Improved; Continue home torsemide. Weight today 148. Suspect secondary to dietary indiscretion, noncompliance with meds, runs of vtach.Continue home regimen with lisinopril, toresemide, metoprolol, spironlactone. She brought Metorpolol in from home but it is still unclear if she was taking it. Will increase to 150mg BID. (2) Ventricular tachyarrhythmia Comment: ICD interrogation shows SVT, v-tach over the past 3 days prior to admission. One episode of V-fib on around 1500, s/p ICD shock. Restarted on Metoprolol here and her cardiology note from 04/2016 Metoprolol increased to 200mg qAm and 100mg qPM. Will increase metoprolol to 150mg PO BID. This is what was on her pill bottles but unclear whether she was actually taking it. Cardiology consult placed. It is noted back in July she was seen inpatient by Dr. Shipman who recommended antirythmic medication at that time (which was deferred to her biofuels processing technician Dr. Umana), per patient she has not had any new medications since that time. There was a question on admission of her telling the provider she had "1 new med" but today she denies this. Her pharmacy was called and there are no new medications in the past 6 months. (3) AICD (automatic cardioverter/defibrillator) present Comment: No further episodes on tele of ICD firing. Replete electrolytes and contine Toprol. (4) Atrial fibrillation Comment: Rate controlled. Dig level slightly low (0.7). Unclear about compliance. Continue metoprolol and warfarin (therapeutic INR). (5) Chronic pain Comment: Stable. Continue oxycodone SR (6) HTN (hypertension) Comment: Normotensive. Continue lisinopril, metoprolol (7) DVT prophylaxis Comment: INR 2.0. Continue Warfarin. (8) Full code status Status and Disposition: Inpatient. Plan to discharge home in the AM.
[2016-12-24] MEDS: Warfarin TAB(*) 6 MG PO SCH (18:02)
[2016-12-25] MEDS: oxyCODONE SR TAB(*) 40 MG TAB.SR PO SCH (05:12)
[2016-12-25] MEDS: Levothyroxine TAB* 75 MCG TAB PO SCH (05:12)
--- NOTE | 2016-12-25 08:45 | PN ---
Subjective Date of Service: 12/25/16 Interval History: Patient seen and examined at bedside. Patient states that she feels better than yesterday. No further episode of diaphoresis and she feels ready to go home. Family History: Unchanged from Admission Social History: Unchanged from Admission Past Medical History: Unchanged from Admission Objective Active Medications: Cyanocobalamin (Vitamin B12 Tab*) 1,000 mcg PO BID GABRIELLA Digoxin (Lanoxin Tab*) 0.125 mg PO DAILY GABRIELLA Ferrous Sulfate (Ferrous Sulfate Tab*) 325 mg PO DAILY GABRIELLA Lactulose (Lactulose*) 30 ml PO DAILY GABRIELLA Levothyroxine Sodium (Synthroid Tab*) 75 mcg PO 0600 G[facility] Lisinopril (Prinivil Tab*) 5 mg PO DAILY GABRIELLA Magnesium Oxide (Magox 400 Tab*) 400 mg PO BID GABRIELLA Methocarbamol (Robaxin Tab*) 500 mg PO QID PRN Metoprolol Succinate (Toprol Xl Tab*) 150 mg PO BID GAB[facility] Ondansetron HCl (Zofran Tab*) 4 mg PO Q6H PRN Oxycodone HCl (Roxycodone Tab*) 20 mg PO Q6H PRN Oxycodone HCl (Oxycontin(*)) 80 mg PO Q8HR [facility] Potassium Chloride (Klor Con Er Tab*) 20 meq PO DAILY [facility] Spironolactone (Aldactone Tab*) 100 mg PO DAILY GABRIELLA Torsemide (Demadex*) 40 mg PO DAILY GABRIELLA Warfarin Sodium (Coumadin Tab(*)) 6 mg PO DAILY@1700 [facility] 12/25/16 12/25/16 12/25/16 00:10 03:56 05:12 Temperature 97.7 F 96.0 F Pulse Rate 70 73 Respiratory 16 20 16 Rate Blood Pressure 112/48 124/67 (mmHg) O2 Sat by Pulse 99 100 Oximetry Oxygen Devices in Use Now: Nasal Cannula Appearance: sitting up in bed, NAD Eyes: No Scleral Icterus, PERRLA Ears/Nose/Mouth/Throat: NL Teeth, Lips, Gums Neck: NL Appearance and Movements; NL JVP Respiratory: Symmetrical Chest Expansion and Respiratory Effort, Clear to Auscultation Cardiovascular: NL Sounds; No Murmurs; No JVD, RRR Abdominal: NL Sounds; No Tenderness; No Distention Lymphatic: No Cervical Adenopathy Extremities: - - skin changes c/w venous stasis Skin: No Rash or Ulcers Neurological: Alert and Oriented x 3, NL Muscle Strength and Tone Nutrition: Taking PO's Result Diagrams: 12/24/16 11:26 12/24/16 11:26 Assess/Plan/Problems-Billing Ms. Bain is a 75 yo female with a PMH significant for multiple myocardial infarctions, severe ischemic cardiomyopathy with EF 20% to 25%, chronic hypoxic respiratory failure with chronic use of 6Lnc, afib, and HTN, who presents to the hospital today with concern for ICD firing on (secondary to vfib) in the setting of 3 days of increased dyspnea with exertion and palpitations. Patient with concern for mild CHF exacerbation with elevated BNP and congestion seen on CXR. - Patient Problems (1) Acute systolic (congestive) heart failure (2) Ventricular tachyarrhythmia (3) AICD (automatic cardioverter/defibrillator) present (4) Atrial fibrillation (5) Chronic pain (6) HTN (hypertension) (7) DVT prophylaxis (8) Full code status Status and Disposition: Inpatient. Stable to be discharged home.
[2016-12-25] MEDS: Metoprolol Succinate XL TAB* 100 MG PO SCH (09:46)
[2016-12-25] MEDS: Ferrous Sulfate TAB* 325 MG PO SCH (09:46)
[2016-12-25] MEDS: Digoxin TAB* 0.125 MG PO SCH (09:46)
[2016-12-25] MEDS: Cyanocobalamin TAB* 500 MCG PO SCH (09:46)
[2016-12-25] MEDS: Magnesium Oxide TAB* 400 MG PO SCH (09:46)
[2016-12-25] MEDS: Potassium Chlor TAB* 20 MEQ TAB.ER PO SCH (09:46)
[2016-12-25] MEDS: Lisinopril TAB* 5 MG PO SCH (09:47)
[2016-12-25] MEDS: Torsemide TAB* 20 MG PO SCH (09:54)
[2016-12-25] MEDS: Spironolactone TAB* 25 MG PO SCH (09:54)
[2016-12-25 10:30] VITALS: BP 122/72
--- NOTE | 2016-12-26 02:34 | DS ---
CC: Dr. Tavarez; Dr. Edge* DISCHARGE SUMMARY: DATE OF ADMISSION: 12/20/16 DATE OF DISCHARGE: 12/25/16 PRIMARY CARE PHYSICIAN: Dr. Edge. CLINICAL STAFF ANESTHESIOLOGIST: Dr. Tavarez. ATTENDING PHYSICIAN: Dr. Trey Santa* (report dictated by Radha Ruiz NP). PRIMARY DIAGNOSES: 1. Ventricular tachycardia and ICD firing. 2. Acute on chronic systolic congestive heart failure exacerbation. SECONDARY DIAGNOSES: 1. Atrial fibrillation. 2. Hypertension. 3. Hyperlipidemia. 4. Peripheral vascular disease. 5. Hypothyroidism. 6. Gastroesophageal reflux disease. STUDIES WHILE IN THE HOSPITAL: 1. Chest x-ray, concerning for mild congestive heart failure. 2. Transthoracic echocardiogram, 12/23/16, mild concentric left ventricular hypertrophy is observed. There is severely decreased left ventricular systolic function. The estimated ejection fraction is 20% to 25%. There is septal flattening in the intraventricular septum consistent with right ventricular volume or pressure overload. The right ventricular global systolic function is mildly reduced. There is no evidence of aortic stenosis, there is trace mitral regurgitation. Mitral valve functioning normally. There is moderate tricuspid regurgitation. There is evidence of moderate pulmonary hypertension. There is no significant pericardial effusion. There are no significant changes compared to previous study done on 04/05/15. MEDICATIONS AT THE TIME OF DISCHARGE: It was unclear exactly as to what medication the patient was taking on admission, hence I will say that all the medications are new, specifically: 1. Metoprolol XL 200 mg oral in the morning and 100 mg oral in the evening. 2. Spironolactone 25 mg oral daily. 3. Torsemide 40 mg oral daily. 4. Lisinopril 5 mg oral daily. 5. Digoxin 0.125 mg oral daily. 6. Atorvastatin 10 mg oral at 2100. 7. Prednisone 5 mg oral daily. 8. Nexium 40 mg oral daily. 9. OxyContin 80 mg oral every 8 hours. 10. Oxycodone 20 mg oral every 6 hours as needed. 11. Vitamin B12 of 1000 mcg oral twice daily. 12. Mag ox 400 mg oral twice daily. 13. Potassium chloride 20 mEq oral daily. 14. Robaxin 500 mg oral 4 times daily as needed. 15. Iron sulfate 325 mg oral daily. 16. Lactulose 30 mg oral daily. 17. Synthroid 75 mcg oral daily. 18. Zofran 4 mg oral every 6 hours as needed. 19. Aldactone 25 mg oral daily. HISTORY OF PRESENT ILLNESS AND HOSPITAL COURSE: Ms. Bain is a 75-year-old female with a complicated past medical history including severe ischemic cardiomyopathy, ejection fraction 20% to 25%, episodes of V-tach, now status post ICD and pacemaker. The patient presented to the emergency room with a complaint of increasing shortness of breath and a fast heart rate. Additionally she reported that her ICD had fired. She also reports 7 to 8- pound weight gain over the summer and increased salt intake. The patient was admitted to the telemetry floor for CHF as well as potentially ventricular tachycardia. The patient was seen in consultation by Dr. April Escamilla, please refer to her consultation for details. Recommendations were to continue Aldactone as well as obtain records from her german teacher and director investor relations to figure out what medication she was in fact taking. When these records were obtained, as well as her medication bottles, there were some significant discrepancies between what her director investor relations's note showed and what cardiology recommended. Her german teacher had recommended 200 mg of Toprol in the morning and a 100 mg in the evening while director investor relations notes stated that she was on Coreg and her home medication bottle said she was taking metoprolol 150 twice a day. To reconcile all of this, metoprolol was continued 200 in the morning and 100 in the evening. The patient was initially given multiple doses of IV Lasix and subsequently she was transitioned on to 40 mg of Torsemide daily on 12/21/16 as well as started on 100 mg of spironolactone. With these medications, the patient dropped 10 pounds over the 5 days that she was here. Additionally, her sodium did start to drop and her potassium sera, for this reason she will only be discharged on 25 mg of Aldactone. While the patient was observed here on telemetry she had no further episodes of any ventricular tachycardia. With the alteration of metoprolol, the patient's blood pressure remained controlled with systolic ranging from 100 to 120. The patient denied any dizziness with ambulation. The patient maintained on her home oxygen, which was 5 liters. The patient had an episode of diaphoresis the day prior to discharge. At that time, her vitals were stable, pain was controlled, glucose was within normal limits. The patient had a troponin of 0.04 which was consistent with prior troponin. The patient was given an additional day. For atrial fibrillation warfarin was continued and the patient was rate controlled and in fact paced during her hospitalization. For her GERD, omeprazole was continued. The patient was continued on long-acting oxycodone as well as short-acting oxycodone. On 12/25/16, vitals were as follows: Temperature 97.5, heart rate 70, respiratory rate 14, oxygen saturation 97% on 5 liters, blood pressure 122/72. At this point, the patient was stable for discharge. DISCHARGE PLANNING: The patient was discharged on a heart-healthy, no-salt diet. The patient should check her weight daily and notify her provider if she has greater than a 3-pound weight gain or weight loss. The patient should make a followup appointment within 4 [address] Tavarez. The patient should also followup with Dr. Edge. She has an appointment with him on at 2 p.m. At that point on 12/27/16 at 2 p.m., the patient should also have a basic metabolic panel checked. I have reviewed all these instructions with the patient, she is agreeable, and will be discharged today. This is a summarized report of a complex medical history and hospital stay. For more details please see the entire medical record. TIME SPENT: Time for discharge was 60 minutes and 35 minutes were spent with the patient discussing medications at discharge and followup instructions. CONDITION ON DISCHARGE: Stable. Reviewed by RADHA RUIZ NP 12/28/20161999 [id number]/[facility] #: [id number] MARISOL
== END 2016-12-25 12:04 | disposition home health service (06) | DRG 292 ==
LOC: ED 16:40 → MEDTELE 19:34 → OBSVTOIN 12-21 14:12
PROVIDERS: ADMIT Internal Medicine; ATTEND Internal Medicine
DX: I11.0 Hypertensive heart disease with heart failure (principal); J96.11 Chronic respiratory failure with hypoxia; I27.20 Pulmonary hypertension, unspecified; I08.3 Combined rheumatic disorders of mitral, aortic and tricuspid valves; I48.0 Paroxysmal atrial fibrillation; Z99.81 Dependence on supplemental oxygen; G43.909 Migraine, unspecified, not intractable, without status migrainosus; I47.1 Supraventricular tachycardia; E03.9 Hypothyroidism, unspecified; I25.5 Ischemic cardiomyopathy; I25.10 Atherosclerotic heart disease of native coronary artery without angina pectoris; E78.5 Hyperlipidemia, unspecified; G89.29 Other chronic pain; I50.23 Acute on chronic systolic (congestive) heart failure; K21.9 Gastro-esophageal reflux disease without esophagitis; I73.9 Peripheral vascular disease, unspecified; E87.6 Hypokalemia; R40.2412 Glasgow coma scale score 13-15, at arrival to emergency department; M19.90 Unspecified osteoarthritis, unspecified site; M54.9 Dorsalgia, unspecified; Z95.810 Presence of automatic (implantable) cardiac defibrillator; Z86.73 Personal history of transient ischemic attack (TIA), and cerebral infarction without residual deficits; Z90.49 Acquired absence of other specified parts of digestive tract; Z90.710 Acquired absence of both cervix and uterus; Z82.49 Family history of ischemic heart disease and other diseases of the circulatory system; Z72.89 Other problems related to lifestyle; Z88.8 Allergy status to other drugs, medicaments and biological substances; Z86.711 Personal history of pulmonary embolism; I25.2 Old myocardial infarction; Z87.11 Personal history of peptic ulcer disease
CPT/HCPCS: 36415; 71020; 80048; 80053; 80162; 81003; 81015; 82550; 82553; 83605; 83735; 83880; 84443; 84484; 85025; 85610; 87641; 93005; 93306; A9270-GY; C8929; G0378; J1940

== ENCOUNTER 2017-05-16 15:32 | Emergency (ER) | payer MEDICARE ==
--- NOTE | 2017-05-16 18:27 | RAD ---
INDICATION: Neck pain radiating into the shoulders and back without proceeding injury. Neck turn to LEFT. Kyphotic. COMPARISON: No relevant prior exams available on the [facility] PACS for comparison. TECHNIQUE: Multidetector CT images foramen magnum to lung apices without contrast. Multiplanar reformation. REPORT: 2.5 mm degenerative C3-C4 anterolisthesis. Negative for facet subluxation at any level. Negative for fracture. Negative for paravertebral hematoma. Diffuse degenerative spondylosis and facet joint osteoarthritis. Disc space narrowing is severe at C5-C6 and moderate throughout the remainder of the cervical spine. At C5-C6 dorsal disc osteophyte complex results in minimal impression on the ventral margin of the thecal sac. Uncinate process spurring and facet joint osteoarthritis results in moderate bilateral foraminal stenosis. At C6-C7 a 0.3 cm AP by 0.4 cm transverse by 0.6 cm cephalocaudal densely calcified nodule is present along the RIGHT para midline ligamentum flavum with resulting mild impression on the RIGHT lateral margin of the thecal sac without significant minimal acquired central canal stenosis. Uncinate process spurring results in mild LEFT foraminal stenosis. IMPRESSION: 1. Negative for additional focal spine fracture or facet subluxation. 2. Mild C5-C6 and C6/C7 acquired central canal stenosis. 3. Moderate bilateral C5-C6 and mild LEFT unilateral C6-C7 foraminal stenosis.
[2017-05-16] MEDS ORDERED: Diazepam TAB(*) 5 MG PO ONE (19:08)
[2017-05-16] MEDS ORDERED: Ondansetron INJ* 2 MG/ML VIAL IV ONE (19:24)
[2017-05-16] MEDS ORDERED: Ondansetron ODT TAB* 4 MG PO ONE (19:46)
[2017-05-16 19:58] LABS: ABS Basophils 0 10^3/ul (0-0.2); ABS Eosinophils 0.1 10^3/ul (0-0.6); ABS Lymphocytes 0.7 10^3/ul (1.0-4.8); ABS Monocytes 0.6 10^3/ul (0-0.8); ABS Neutrophils 3.4 10^3/ul (1.5-7.7); ABS Nucleated RBC 0 10^3/ul; Eosinophil % 1.1 % (0-6); Hematocrit 37 % (35-47); Hemoglobin 12.3 g/dl (12.0-16.0); Lymphocyte % 15.3 % (25-47); Mean Corpuscular HGB Conc 34 g/dl (31-36); Mean Corpuscular Hemoglobin 33 pg (27-31); Mean Corpuscular Volume 100 fL (80-97); Mean Platelet Volume 8 um3 (7.4-10.4); Nucleated Red Blood Cells % 0; Platelet Count 106 10^3/ul (150-450); Red Blood Count 3.67 10^6/ul (4.0-5.4); Red Cell Distribution Width 13 % (10.5-15); White Blood Count 4.8 10^3/ul (3.5-10.8)
[2017-05-16 20:11] LABS: EGFR Non-African American 92.1 (>60)
[2017-05-16 20:36] LABS: INR 3.74 (0.77-1.02)
--- NOTE | 2017-05-16 20:43 | ED ---
Neck Pain - HPI Summary HPI Summary: Patient here with left-sided neck pain which she woke up with this morning. This is sharp and stabbing pain at times and radiates into her shoulder but does not go down her arm. Denies any injury to the area. Unsure if she slept in an operative position causing her symptoms this morning. Denies numbness tingling or weakness down her arm and no headache, slurred speech or facial droop. Additionally she denies fever, chills, nausea, vomiting, chest pain, difficulty breathing, abdominal pain. She does admit to a history of arthritis especially in her hips. She also has scoliosis for which she is treated with rods in her back. She takes OxyContin and roxycodone for chronic pain and reports this has not helped her neck pain at all today - "given me something stronger because these aren't helping". She cannot take NSAIDs as she takes Coumadin and she takes prednisone 5mg daily - NOTE: pulmonary HTN, CHF tx'd w/ diuretics. She is looking for an answer to her pain and relief she is quite uncomfortable. Note: She is on 6 L of oxygen at home for cardiac issues - History of Current Complaint Chief Complaint: EDNeckComplaint Stated Complaint: NECK PAIN Time Seen by Provider: 05/16/17 17:46 Hx Obtained From: Patient Hx Last Menstrual Period: NA Pain Intensity: 9 - Allergies/Home Medications Allergies/Adverse Reactions: Allergies Allergy/AdvReac Type Severity Reaction Status Date / Time Adhesive Tape Allergy itchiness Verified 01/27/17 13:47 MS Heparin [Heparin] Allergy Hives Verified 01/27/17 13:47 PACEMAKER -NO MRIs Allergy PACEMAKER Uncoded 01/27/17 13:47 -NO MRIs PMH/Surg Hx/FS Hx/Imm Hx Previously Healthy: Yes Endocrine/Hematology History: Reports: Hx Anticoagulant Therapy - Coumadin, Hx Thyroid Disease - hypothyroidism Denies: Hx Diabetes Cardiovascular History: Reports: Hx Auto Implanted Cardiovert Defib - AICD, Hx Congestive Heart Failure - CHRONIC, Hx Coronary Artery Disease, Hx Embolism, Hx Hypercholesterolemia, Hx Hypertension, Hx Pacemaker/ICD, Other Cardiovascular Problems/Disorders - NON ISCHEMIC CARDIOMYOPATHY Respiratory History: Denies: Hx Asthma, Hx Chronic Obstructive Pulmonary Disease (COPD), Other Respiratory Problems/Disorders - HOME O2 - 6L for heart condition, no pulm GI History: Reports: Hx Gall Bladder Disease, Hx Gastroesophageal Reflux Disease , Hx Ulcer - bleeding, Other GI Disorders - PUD History: Denies: Hx Renal Disease Musculoskeletal History: Reports: Hx Arthritis, Hx Back Problems, Hx Scoliosis - rods in back, Other Musculoskeletal History - chronic pain, back, hips, knees - takes OxyContin Sensory History: Reports: Hx Contacts or Glasses, Other Sensory Impairments - dentures Denies: Hx Hearing Aid Opthamlomology History: Reports: Hx Contacts or Glasses, Other Sensory Impairments - dentures Neurological History: Reports: Hx Migraine, Hx Transient Ischemic Attacks (TIA) , Other Neuro Impairments/Disorders - PAIN CLINIC PT. - Surgical History Surgery Procedure, Year, and Place: APR 16, 2011 ICD PACER. gallbladder removed 1999. 12 rods placed in back ~10 years ago. hysterectomy - Immunization History Immunizations Up to Date: Unable to Obtain/Confirm Infectious Disease History: No Infectious Disease History: Reports: Hx of Known/Suspected MRSA Denies: Hx Hepatitis, History Other Infectious Disease, Traveled Outside the [place] in Last 30 Days - Family History Known Family History: Positive: Cardiac Disease - Social History Occupation: Retired Lives: With Family - domestic partner of 20 years Alcohol Use: None Hx Substance Use: No Substance Use Type: Reports: None Hx Tobacco Use: No Smoking Status (MU): Never Smoked Tobacco Review of Systems Constitutional: Negative Negative: Fever, Chills, Fatigue Eyes: Negative ENT: Negative Negative: Sore Throat Cardiovascular: Negative Negative: Palpitations, Chest Pain Respiratory: Negative Negative: Shortness Of Breath, Cough Gastrointestinal: Negative Negative: Abdominal Pain, Vomiting, Nausea Positive: no symptoms reported Positive: Arthralgia, Myalgia. Negative: Edema Skin: Negative Neurological: Negative Psychological: Normal All Other Systems Reviewed And Are Negative: Yes Physical Exam Triage Information Reviewed: Yes Vital Signs On Initial Exam: Initial Vitals Temp Pulse Resp BP Pulse Ox 99.8 F 77 18 144/76 96 05/16/17 15:41 05/16/17 15:41 05/16/17 15:41 05/16/17 15:41 05/16/17 15:41 Vital Signs Reviewed: Yes Appearance: Positive: Well-Appearing, No Pain Distress - Patient is resting comfortably, asleep on stretcher upon entrance into room. She is easily arousable and reports pain on left side of neck when she is awake., Well- Nourished Skin: Positive: Warm, Skin Color Reflects Adequate Perfusion, Dry - No erythema , no lesions, no ecchymosis over affected area of neck, shoulder, scalp, face and left side Head/Face: Positive: Normal Head/Face Inspection Eyes: Positive: Normal, EOMI, GIOVANNY, Conjunctiva Clear. Negative: Conjunctiva Inflammed, Discharge ENT: Positive: Hearing grossly normal, Pharynx normal - No lesions or erythema however patient's oral mucosa is somewhat dry. Negative: Nasal congestion, Nasal drainage - Nasal cannula in place with 2 L of oxygen flowing, Tonsillar swelling, Tonsillar exudate, Muffled voice Neck: Positive: Supple, Nontender, No Lymphadenopathy Respiratory/Lung Sounds: Positive: Clear to Auscultation, Breath Sounds Present. Negative: Rales, Rhonchi, Wheezes Cardiovascular: Positive: S1, S2 Abdomen Description: Positive: Nontender, Soft Bowel Sounds: Positive: Present Musculoskeletal: Positive: Strength/ROM Intact, Pain @ - Left paracervical muscles along spine and into trapezius muscle are tender to palpation; patient is resting with head cocked laterally to the right she reports this is more comfortable Neurological: Positive: Normal, Sensory/Motor Intact - Sensation and strength equal and intact in bilateral upper extremities as well as lower extremities, Alert, Oriented to Person Place, Time, CN Intact II-III, Facial Symmetry, Speech Normal. Negative: Pronator Drift Present Psychiatric: Positive: Normal Diagnostics - Vital Signs Vital Signs Temp Pulse Resp BP Pulse Ox 05/16/17 19:59 98.2 F 74 18 138/89 96 05/16/17 19:55 18 05/16/17 15:41 99.8 F 77 18 144/76 96 - Laboratory Lab Results: Lab Results 05/16/17 05/16/17 05/16/17 Range/Units 19:40 19:40 19:40 WBC 4.8 (3.5-10.8) 10^3/ul RBC 3.67 L (4.0-5.4) 10^6/ul Hgb 12.3 (12.0-16.0) g/dl Hct 37 (35-47) % MCV 100 H (80-97) fL MCH 33 H (27-31) pg MCHC 34 (31-36) g/dl RDW 13 (10.5-15) % Plt Count 106 L (150-450) 10^3/ul MPV 8 (7.4-10.4) um3 Neut % (Auto) 70.9 (38-83) % Lymph % (Auto) 15.3 L (25-47) % Todd % (Auto) 12.4 H (0-7) % Eos % (Auto) 1.1 (0-6) % Baso % (Auto) 0.3 (0-2) % Absolute Neuts (auto) 3.4 (1.5-7.7) 10^3/ul Absolute Lymphs (auto) 0.7 L (1.0-4.8) 10^3/ul Absolute Monos (auto) 0.6 (0-0.8) 10^3/ul Absolute Eos (auto) 0.1 (0-0.6) 10^3/ul Absolute Basos (auto) 0 (0-0.2) 10^3/ul Absolute Nucleated RBC 0 10^3/ul Nucleated RBC % 0 ESR Pending INR (Anticoag Therapy) (0.77-1.02) Sodium 137 (133-145) mmol/L Potassium 3.9 (3.5-5.0) mmol/L Chloride 102 (101-111) mmol/L Carbon Dioxide 29 (22-32) mmol/L Anion Gap 6 (2-11) mmol/L BUN 10 (6-24) mg/dL Creatinine 0.63 (0.51-0.95) mg/dL Est GFR ( Amer) 118.5 (>60) Est GFR (Non-Af Amer) 92.1 (>60) BUN/Creatinine Ratio 15.9 (8-20) Glucose 110 H (70-100) mg/dL Lactic Acid 0.8 (0.5-2.0) mmol/L Calcium 9.3 (8.6-10.3) mg/dL Total Bilirubin 0.90 (0.2-1.0) mg/dL AST 15 (13-39) U/L ALT 8 (7-52) U/L Alkaline Phosphatase 90 (34-104) U/L C-Reactive Protein 21.86 H (< 5.00) mg/L Total Protein 6.9 (6.4-8.9) g/dL Albumin 3.3 (3.2-5.2) g/dL Globulin 3.6 (2-4) g/dL Albumin/Globulin Ratio 0.9 L (1-3) /18 Range/Units 19:40 WBC (3.5-10.8) 10^3/ul RBC (4.0-5.4) 10^6/ul Hgb (12.0-16.0) g/dl Hct (35-47) % MCV (80-97) fL MCH (27-31) pg MCHC (31-36) g/dl RDW (10.5-15) % Plt Count (150-450) 10^3/ul MPV (7.4-10.4) um3 Neut % (Auto) (38-83) % Lymph % (Auto) (25-47) % Todd % (Auto) (0-7) % Eos % (Auto) (0-6) % Baso % (Auto) (0-2) % Absolute Neuts (auto) (1.5-7.7) 10^3/ul Absolute Lymphs (auto) (1.0-4.8) 10^3/ul Absolute Monos (auto) (0-0.8) 10^3/ul Absolute Eos (auto) (0-0.6) 10^3/ul Absolute Basos (auto) (0-0.2) 10^3/ul Absolute Nucleated RBC 10^3/ul Nucleated RBC % ESR INR (Anticoag Therapy) 3.74 H (0.77-1.02) Sodium (133-145) mmol/L Potassium (3.5-5.0) mmol/L Chloride (101-111) mmol/L Carbon Dioxide (22-32) mmol/L Anion Gap (2-11) mmol/L BUN (6-24) mg/dL Creatinine (0.51-0.95) mg/dL Est GFR ( Amer) (>60) Est GFR (Non-Af Amer) (>60) BUN/Creatinine Ratio (8-20) Glucose (70-100) mg/dL Lactic Acid (0.5-2.0) mmol/L Calcium (8.6-10.3) mg/dL Total Bilirubin (0.2-1.0) mg/dL AST (13-39) U/L ALT (7-52) U/L Alkaline Phosphatase (34-104) U/L C-Reactive Protein (< 5.00) mg/L Total Protein (6.4-8.9) g/dL Albumin (3.2-5.2) g/dL Globulin (2-4) g/dL Albumin/Globulin Ratio (1-3) Result Diagrams: 05/16/17 19:40 05/16/17 19:40 Lab Statement: Any lab studies that have been ordered have been reviewed, and results considered in the medical decision making process. Re-Evaluation - Re-Evaluation First Eval Change: Improved - After receiving diazepam, patient goes back to resting comfortably. She reports pain is more tolerable and is comfortable to go home with boyfriend. Neck Course/Dx - Course Course Of Treatment: Patient presents with acute onset left-sided neck pain radiating into the shoulder this morning w/o neuro deficits. She denies systemic symptoms and trauma however on CT of her cervical spine she is found to have. "Impression: 1. Negative for additional focal spine fracture facet subluxation. 2. Mild C5-C6 and C6-C7 acquired central canal stenosis. 3. Moderate C5-C6 and mild left unilateral C6-C7 foraminal stenosis.". Her labs are unremarkable for acute pathology however her INR is beyond therapeutic level of 2-3 range (or 2.5-3.5 if she has a mechanical valve which is not observed in her chart - suspect she takes coumadin for a. fib). Notified patient in person about CT findings, tx plan and holding coumadin for 1 day but also typed in discharge paperwork as diazepam has made her sleepy. Advised to call PCP tomorrow morning for further guidance regarding coumadin. Patient is unable to take NSAIDs due to her Coumadin. For pain, would also recommend extra strength Tylenol in addition to her OxyContin/roxycodone along with heat alternating with ice. She may try topical rubs such as Biofreeze, BenGay, etc. but avoid any topical rubs with NSAIDs. If her pain returns tomorrow and is worse and/or if she develops neuro deficits, advised to return to ED. Advised to follow up with PCP early this week for cervical pain issue call Friday to schedule an appointment. Patient and boyfriend voice understanding and instructions printed on discharge paperwork. Although patient is tired from medication, her vitals are stable at discharge. Will not provide additional benzodiazepines for muscle relaxation due to lack of observation and dangers of benzo's in elderly, especially w/o supervision of vitals given her med hx. Pt understands. - Diagnoses Provider Diagnoses: Central stenosis of spinal canal, Foraminal stenosis of cervical region, Neck pain on left side - Physician Notifications Discussed Care Of Patient With: Fei Bates - discussed need for further testing - not necessary Discharge - Discharge Plan Condition: Stable Disposition: HOME Patient Education Materials: Cervical Spinal Stenosis (ED) Referrals: Gregory Edge MD [Primary Care Provider] - Additional Instructions: You appear to have some narrowing of your central canal as well as left sided foraminal narrowing (the side of the neck bones where your nerves run out to innervate muscles, etc). This most likely triggered your pain this morning and I believe muscle spasms are making this worse. You were given a muscle relaxer here tonight as you had already tried oxycontin/roxycodone at home without relief. You are having some pain relief with this medication however it has made you sleepy so more will not be written for home in an effort to avoid prolonged sleepiness/poor outcomes. If pain comes back tonight, you may try extra strength tylenol and alternate ice with heat. Furthermore, you may try topical analgesic rubs such as biofreeze, etc but do not use topical rubs with NSAID ingredients (ie. aspirin, ibuprofen, etc). You may try this over the next few days for pain relief however follow-up with your PCP Friday to review symptoms, CT scan findings and additional care. Call PCP Friday to schedule an appointment. *If in the meantime you develop numbness, tingling, weakness into your Left arm , return to the ED. NOTE: your coumadin level is high. It is encouraged that you hold your next dose and call your PCP or coumadin clinic tomorrow morning for further guidance.
[2017-05-16] MEDS: Acetaminophen TAB* 325 MG PO ONE ×2 (21:36→21:41)
[2017-05-16] MEDS ORDERED: Lidocaine PATCH 5%* 1 PATCH TRANSDERM ONE (21:48)
[2017-05-16] MEDS ORDERED: oxyCODONE TAB* 5 MG TAB PO ONE (21:48)
[2017-05-16 22:34] VITALS: BP 127/60
== END 2017-05-16 22:33 | disposition home or self-care (01) ==
LOC: ED 15:32
DX: M48.02 Spinal stenosis, cervical region (principal); M54.2 Cervicalgia; Z79.01 Long term (current) use of anticoagulants; Z95.810 Presence of automatic (implantable) cardiac defibrillator; I50.9 Heart failure, unspecified; I25.10 Atherosclerotic heart disease of native coronary artery without angina pectoris; I10 Essential (primary) hypertension; I42.9 Cardiomyopathy, unspecified
CPT/HCPCS: 36415; 72125; 80053; 83605; 85025; 85610; 85652; 86140; 96374; 99283; A9270-GY

== ENCOUNTER 2018-12-24 10:35 | Inpatient (IN) | payer MEDICARE, OTHER ==
--- NOTE | 2018-12-24 11:04 | ED ---
Complex/Multi-Sys Presentation - HPI Summary HPI Summary: This pt is a 77 y/o female presenting to [facility] via EMS for bilateral leg pain and confusion. Pt has hx of chronic wounds on bilateral legs and states she has pain in her legs. Pt reports she is cold and has "a little" cough. Her rectal temperature in the ED is 101.3F. Pt denies vomiting, diarrhea. Pt notes "I'm just miserable." She reports she is on 5L of oxygen at home at baseline. Pt states she lives at home and ambulates at baseline. PMHx includes COPD, CHF, TIA, HTN, DC, MRSA. Pt is able to state the year and location but is unable to state the month. Medications reviewed. Allergies noted. - History Of Current Complaint Chief Complaint: EDExtremityLower Time Seen by Provider: 12/24/18 10:43 Hx Obtained From: Patient Onset/Duration: Still Present Timing: Constant Severity Currently: Moderate Aggravating Factor(s): nothing Alleviating Factor(s): nothing Associated Signs And Symptoms: Positive: Confusion, Cough, Fever, Other - POSITIVE: bilatreal leg pain. Negative: Vomiting, Diarrhea - Allergies/Home Medications Allergies/Adverse Reactions: Allergies Allergy/AdvReac Type Severity Reaction Status Date / Time Adhesive Tape Allergy itchiness Verified 01/27/17 13:47 MS Heparin [Heparin] Allergy Hives Verified 01/27/17 13:47 PACEMAKER -NO MRIs Allergy PACEMAKER Uncoded 01/27/17 13:47 -NO MRIs Home Medications: Home Medications Apixaban* [Eliquis*] 5 mg PO BID 12/24/18 [History Confirmed 12/24/18] Cholecalciferol TAB* [Vitamin D TAB*] 1,000 unit PO BID 12/24/18 [History Confirmed 12/24/18] Cyanocobalamin TAB* [Vitamin B12 TAB*] 1,000 mcg PO DAILY 12/24/18 [History Confirmed 12/24/18] Diclofenac 1% GEL (NF) [Voltaren 1% GEL (NF)] 1 applic TOPICAL BID 12/24/18 [ History Confirmed 12/24/18] Hydrocortisone 2.5% CREAM(NF) 1 applic TOPICAL BID 12/24/18 [History Confirmed 12/24/18] Lactulose* 15 ml PO BID PRN 12/24/18 [History Confirmed 12/24/18] Metoprolol Succinate XL TAB* [Toprol XL TAB*] 25 mg PO DAILY 12/24/18 [History Confirmed 12/24/18] Ondansetron TAB* [Zofran 4 MG Tab*] 4 mg PO QID PRN 12/24/18 [History Confirmed 12/24/18] Potassium Chlor TAB* [Potassium Chlor TAB 20 MEQ*] 20 meq PO TID 12/24/18 [ History Confirmed 12/24/18] Silver Sulfadiazine 1%* [SILVadine 1%*] 1 applic TOPICAL BID 12/24/18 [History Confirmed 12/24/18] Spironolactone TAB* [Aldactone TAB 25 MG*] 50 mg PO BID 12/24/18 [History Confirmed 12/24/18] Torsemide TAB* [Demadex 20 MG*] 40 mg PO BID 12/24/18 [History Confirmed ] oxyCODONE SR TAB(*) [Oxycontin 40 mg (*)] 80 mg PO Q8HR PRN MDD 6 tabs 12/24/18 [History Confirmed 12/24/18] oxyCODONE TAB* [Roxycodone TAB 5 mg*] 20 mg PO QID PRN MDD 4 tabs 12/24/18 [ History Confirmed 12/24/18] PMH/Surg Hx/FS Hx/Imm Hx Endocrine/Hematology History: Reports: Hx Anticoagulant Therapy - Coumadin, Hx Thyroid Disease - hypothyroidism Denies: Hx Diabetes Cardiovascular History: Reports: Hx Auto Implanted Cardiovert Defib - AICD, Hx Congestive Heart Failure - CHRONIC, Hx Coronary Artery Disease, Hx Embolism, Hx Hypercholesterolemia, Hx Hypertension, Hx Pacemaker/ICD, Other Cardiovascular Problems/Disorders - NON ISCHEMIC CARDIOMYOPATHY Respiratory History: Denies: Hx Asthma, Hx Chronic Obstructive Pulmonary Disease (COPD), Other Respiratory Problems/Disorders - HOME O2 - 6L for heart condition, no pulm GI History: Reports: Hx Gall Bladder Disease, Hx Gastroesophageal Reflux Disease , Hx Ulcer - bleeding, Other GI Disorders - PUD History: Denies: Hx Renal Disease Musculoskeletal History: Reports: Hx Arthritis, Hx Back Problems, Hx Scoliosis - rods in back, Other Musculoskeletal History - chronic pain, back, hips, knees - takes OxyContin Sensory History: Reports: Hx Contacts or Glasses, Other Sensory Impairments - dentures Denies: Hx Hearing Aid Opthamlomology History: Reports: Hx Contacts or Glasses, Other Sensory Impairments - dentures Neurological History: Reports: Hx Migraine, Hx Transient Ischemic Attacks (TIA) , Other Neuro Impairments/Disorders - PAIN CLINIC PT. - Surgical History Surgery Procedure, Year, and Place: APR 16, 2011 ICD PACER. gallbladder removed 1999. 12 rods placed in back ~10 years ago. hysterectomy - Immunization History Date of Influenza Vaccine: 11/2018 Immunizations Up to Date: Yes Infectious Disease History: No Infectious Disease History: Reports: Hx of Known/Suspected MRSA Denies: Hx Hepatitis, History Other Infectious Disease, Traveled Outside the [place] in Last 30 Days - Family History Known Family History: Positive: Cardiac Disease - Social History Alcohol Use: None Hx Substance Use: No Substance Use Type: Reports: None Hx Tobacco Use: No Smoking Status (MU): Never Smoked Tobacco Review of Systems Positive: Fever, Chills Positive: Cough Negative: Vomiting, Diarrhea Musculoskeletal: Other - POSITIVE: bilateral leg pain All Other Systems Reviewed And Are Negative: Yes Physical Exam - Summary Physical Exam Summary: Constitutional: Well-developed, Well-nourished, Alert. (-) Distressed Skin: Warm, Dry. She has multiple ulcerative sores in bilateral lower extremities. Bilateral lower extremities are warm, left more than right. Areas are tender. HENT: Normocephalic; Atraumatic Eyes: Conjunctiva normal Neck: Musculoskeletal ROM normal neck. (-) JVD, (-) Stridor, (-) Tracheal deviation Cardio: Rhythm regular, rate normal, Heart sounds normal; Intact distal pulses; The pedal pulses are 2+ and symmetric. Radial pulses are 2+ and symmetric. (-) Murmur Pulmonary/Chest wall: Effort normal. (-) Respiratory distress, (-) Wheezes, (-) Rales Abd: Soft, (-) tenderness, (-) Distension, (-) Guarding, (-) Rebound Musculoskeletal: (-) Edema Lymph: (-) Cervical adenopathy Neuro: Alert and oriented to person, place, and year. Psych: Mood and affect Normal Triage Information Reviewed: Yes Vital Signs On Initial Exam: Initial Vitals Temp Pulse Resp BP Pulse Ox 101.3 F 80 22 165/70 97 12/24/18 10:43 12/24/18 10:43 12/24/18 10:43 12/24/18 10:43 12/24/18 10:43 Vital Signs Reviewed: Yes Procedures - Sedation Patient Received Moderate/Deep Sedation with Procedure: No Diagnostics - Vital Signs Vital Signs Temp Pulse Resp BP Pulse Ox 12/24/18 10:43 101.3 F 80 22 165/70 97 - Laboratory Result Diagrams: 12/24/18 11:35 12/24/18 11:35 Lab Statement: Any lab studies that have been ordered have been reviewed, and results considered in the medical decision making process. - Radiology Chest XR Radiology Interpretation Completed By: Radiologist Summary of Radiographic Findings: IMPRESSION: Findings suggestive of congestive heart. Dr. Rubio has reviewed this report. - EKG 11:26 Cardiac Rate: NL - at 80 bpm Ectopy: PVCs Summary of EKG Findings: EKG at 11:26 shows ventricular paced rhythm at a rate of 80 bpm. Multiple PVCs. No STEMI. No acute changes. Complex Multi-Symp Course/Dx Course Of Treatment: Patient is here with sepsis secondary to cellulitis. Patient's chronic leg wounds which appear to be superimposed infected. Patient was febrile and tachypneic upon arrival making her seizures positive with a source. Patient had a sepsis workup performed including cultures. Patient was hemodynamically stable with a normal lactate and she is not given any IV fluids that she has heart failure. Patient was treated with vancomycin, cefepime, Flagyl per hour antibiotic sepsis guide. Patient had negative chest x-ray for pneumonia. Patient and negative UA for UTI. Patient was admitted due to her baseline medical fragility and her altered mental status secondary to AMS. - Diagnoses Provider Diagnoses: Sepsis, Cellulitis, CHF (congestive heart failure) - Physician Notifications Discussed Care Of Patient With: Saman Landis Time Discussed With Above Provider: 12:45 Instructed by Provider To: Admit As Inpatient Discharge ED - Sign-Out/Discharge Documenting (check all that apply): Patient Departure - Admit to [facility] [place] Discharge Plan Condition: Stable Disposition: HOME Referrals: Gregory Edge MD [Primary Care Provider] - - Billing Disposition and Condition Condition: STABLE Disposition: Home - Attestation Statements Document Initiated by Scribe: Yes Documenting Scribe: Charline Plascencia Provider For Whom Scribe is Documenting (Include Credential): Tiago Rubio MD Scribe Attestation: Charline Mitchell, scribed for Tiago Rubio MD on 12/24/18 at 1332. Scribe Documentation Reviewed: Yes Provider Attestation: The documentation as recorded by the scribe, Charline Plascencia accurately reflects the service I personally performed and the decisions made by me, Tiago Rubio MD Status of Scribe Document: Viewed
--- OUTSIDE RECORDS SUMMARY | 2018-12-24 11:15 | XMS REPORT | Continuity of Care Document ---
:1940 External Reference #:[id number] Author Name Itz Arteaga M.D. (transmitted by agent of provider Bertha Rutledge) Address [address] [place] [id number] Care Team Providers Name Role Phone Gregory Edge MD - Family Medicine Care Team Information Avionics Mechanic Artur Sprague MD - Internal Care Team Information Avionics Mechanic [phone] Medicine Problems Active Problems Provider Date Localized, primary osteoarthritis Oralia Simmons M.D. Onset: 10/23/2016 Social History Type Date Description Comments Sex Unknown Tobacco Use Start: Unknown Never Smoked Cigarettes Tobacco Use Start: Unknown Never Smoked Cigars Tobacco Use Start: Unknown Never Smoked A Pipe Smokeless Tobacco Never Used Smokeless Tobacco ETOH Use Occasionally consumes wine Tobacco Use Start: Unknown Patient has never smoked Recreational Drug Use Denies Drug Use Smoking Status Reviewed: 12/14/18 Patient has never smoked Exercise Type/Frequency Exercises sporadically Allergies, Adverse Reactions, Alerts Description No Known Drug Allergies Medications Active Medications SIG Qnty Indications Ordering Date Provider Prednisone Take one Itz Arteaga, 12/14/2018 1mg Tablets capsule/tablet by M.D. mouth twice daily Plaquenil 1 by mouth every 30tabs Itz Arteaga, 12/14/2018 200mg Tablets day M.D. Lidoderm 1 apply to 30units M25.552 Itz Arteaga, 10/27/2018 5% Patches affected painful M.D. area 12 hours on, 12 hours off Rolling Walker use for 1units M17.0 Oralia Simmons, 10/23/2016 ambulation at all M.D. times dx - b knee oa Atorvastatin Calcium 1 po qday Unknown 10mg Tablets Lisinopril 1 po qday Unknown 10mg Tablets Nexium 1 po q am Unknown 40mg Capsules DR Oxycodone HCL 1 po prn q 6 Unknown 20mg hours Tablets Oxycontin 1 po bid Unknown 80mg Tab ER 12H Abuse-Det Voltaren apply to affected Unknown 1% Gel area prn Lactulose 1 po as directed Unknown 10GM/15ML Solution Potassium Chloride 1 po qday Unknown Jenae ER 20Meq Tablets ER Torsemide 1 po qday Unknown 20mg Tablets Spironolactone Unknown 50mg Tablets [facility] Vitamin B12 1 by mouth every Unknown 1000mcg day Tablets Medications Administered in Office Medication SIG Qnty Indications Ordering Provider Date Depomedrol 40MG Oralia Simmons M.D. 10/23/2016 Injection Depomedrol 40MG Oralia Simmons M.D. 10/23/2016 Injection Depomedrol 40MG Troy Kendrick MD 10/24/2015 Injection Depomedrol 80MG Jon Wood M.D. 08/23/2010 Injection Depomedrol 80MG Jon Wood M.D. 07/27/2010 Injection Depomedrol 40MG Jon Wood M.D. 04/25/2010 Injection Depomedrol 80MG Babak Smith, 04/18/2010 Injection RPA-C Depomedrol 80MG Jon Wood M.D. 03/07/2010 Injection Depomedrol 80MG Jon Wood M.D. 02/07/2010 Injection Immunizations Description No Information Available Vital Signs Date Vital Result Comment 12/14/2018 9:36am Height 65 inches 5'5" Weight 145.00 lb Heart Rate 78 /min BP Systolic Sitting 142 mmHg BP Diastolic Sitting 80 mmHg Pain Level 8 O2 % BldC Oximetry 95 % BMI (Body Mass Index) 24.1 kg/m2 10/27/2018 10:12am Height 65 inches 5'5" Weight 131.12 lb Heart Rate 78 /min BP Systolic Sitting 128 mmHg BP Diastolic Sitting 72 mmHg Pain Level 9 O2 % BldC Oximetry 96 % BMI (Body Mass Index) 21.8 kg/m2 Results Description No Information Available Procedures Date Code Description Status 09/10/2018 94416 Removal Devitalized Tissue Wound Greater Than 20 Square CM Completed 09/10/2018 73245 Removal Devitalization Tissue Wound Less Than Equal 20 Completed Square CM 07/21/2018 42648 Removal Devitalization Tissue Wound Less Than Equal 20 Completed Square CM 07/14/2018 26234 Removal Devitalization Tissue Wound Less Than Equal 20 Completed Square CM 07/09/2018 73286 Removal Devitalization Tissue Wound Less Than Equal 20 Completed Square CM Medical Devices Description No Information Available Encounters Type Date Location Provider Dx Diagnosis Office Visit 10/27/2018 Rheumatology [email or web address] polyarthropathy R20.8 Other disturbances of skin sensation Z79.899 Other exterminator helper termite (current) drug therapy M25.552 Pain in left hip M06.9 Rheumatoid arthritis, unspecified Assessments Date Code Description Provider 12/14/2018 M06.4 Inflammatory polyarthropathy Itz Arteaga M.D. 12/14/2018 Z79.899 Other group home (current) drug Itz Arteaga M.D. therapy 12/14/2018 M25.552 Pain in left hip Itz Arteaga M.D. 12/14/2018 R20.8 Other disturbances of skin sensation Itz Arteaga M.D. 10/27/2018 M06.4 Inflammatory polyarthropathy Itz Arteaga M.D. 10/27/2018 R20.8 Other disturbances of skin sensation Itz Arteaga M.D. 10/27/2018 Z79.899 Other exterminator helper termite (current) drug Itz Arteaga M.D. therapy 10/27/2018 M25.552 Pain in left hip Itz Arteaga M.D. 10/27/2018 M06.9 Rheumatoid arthritis, unspecified Itz Arteaga M.D. 09/10/2018 L97.821 Non-prs chr ulcer oth prt l low leg Geraldo De Anda M.D. limited to brkdwn skin 09/10/2018 I87.312 Chronic venous hypertension Geraldo De Anda M.D. 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 limited to brkdwn skin 09/10/2018 I87.311 Chronic venous hypertension Geraldo De Anda M.D. (idiopathic) with ulcer of right 09/10/2018 I87.2 Venous insufficiency (chronic) Geraldo De Anda M.D. (peripheral) 09/10/2018 Z79.01 exterminator helper termite (current) use of Geraldo De Anda M.D. anticoagulants 07/21/2018 L97.811 Non-prs chr ulcer oth prt r low leg Geraldo De Anda M.D. limited to brkdwn skin 07/21/2018 I87.311 Chronic venous hypertension Geraldo De Anda M.D. (idiopathic) with ulcer of right 07/21/2018 L97.821 Non-prs chr ulcer oth prt l low leg Geraldo De Anda M.D. limited to brkdwn skin 07/21/2018 I87.312 Chronic venous hypertension Geraldo De Anda M.D. (idiopathic) with ulcer of left 07/21/2018 I87.2 Venous insufficiency (chronic) Geraldo De Anda M.D. (peripheral) 07/21/2018 Z79.01 exterminator helper termite (current) use of Geraldo De Anda M.D. anticoagulants 07/14/2018 L97.811 Non-prs chr ulcer oth prt r low leg Geraldo De Anda M.D. limited to brkdwn skin 07/14/2018 I87.311 Chronic venous hypertension Geraldo De Anda M.D. (idiopathic) with ulcer of right 07/09/2018 I87.311 Chronic venous hypertension Darby Caballero DNP, RN, (idiopathic) with ulcer of right TRANSIT COACH OPERATOR-BC 07/09/2018 L97.812 Non-prs chronic ulcer oth prt r low Darby Caballero DNP , RN, leg w fat layer exposed TRANSIT COACH OPERATOR-BC Plan of Treatment Future Appointment(s):02/15/2019 2:40 pm - [facility] M.D. at [facility]12/14/2018 - Itz Arteaga M.D.M06.4 Inflammatory uxundgpwrrsgezsU91.899 Other group home (current) drug therapyReferral:Itz Combs MD, UephizwxgsyuxC08.552 Pain in left hipR20.8 Other disturbances of skin sensationFollow up:Follow up in 2 months or sooner if needed Functional Status Description No Information Available Mental Status Description No Information Available Referrals Refer to Dr Reason for Referral Status Appt Date Itz Combs MD Please monitor for Plaquenil toxicity Created [address] [place] [address] [phone]
--- OUTSIDE RECORDS SUMMARY | 2018-12-24 11:15 | XMS REPORT | Continuity of Care Document ---
:1940 External Reference #:[id number] Author Name Itz Arteaga M.D. (transmitted by agent of provider Bertha Rutledge) Address [address] [place] [id number] Care Team Providers Name Role Phone Gregory Edge MD - Family Medicine Care Team Information Rotary Envelope Machine Operator [phone] Artur Sprague MD - Internal Care Team Information Rotary Envelope Machine Operator [phone] Medicine Problems Active Problems Provider Date Localized, [...] Use Denies Drug Use Smoking Status Reviewed: 10/27/18 Patient has never smoked Exercise Type/Frequency Exercises sporadically Allergies, Adverse Reactions, Alerts Description No Known Drug Allergies Medications Active Medications SIG Qnty Indications Ordering Date Provider Lidoderm 1 apply to 30units M25.552 Itz [...] Torsemide 1 po qday Unknown 20mg Tablets Prednisone pt states she is Unknown 5mg Tablets on 2 mg daily Spironolactone Unknown 50mg Tablets [facility] Vitamin B12 [...] Available Vital Signs Date Vital Result Comment 10/27/2018 10:12am Height 65 inches 5'5" Weight 131.12 lb Heart Rate 78 /min BP Systolic Sitting 128 mmHg BP Diastolic Sitting 72 mmHg Pain Level 9 O2 % BldC Oximetry 96 % BMI (Body Mass Index) 21.8 kg/m2 10/23/2016 8:48am Height 65 inches 5'5" Weight 166.00 lb Heart Rate 72 /min BP Systolic 142 mmHg BP Diastolic 88 mmHg Respiratory Rate 16 /min Body Temperature 97.8 F Pain Level 10 BMI (Body Mass Index) 27.6 kg/m2 Results Description No Information Available Procedures Date Code Description Status 09/10/2018 02992 Removal Devitalized Tissue Wound Greater Than 20 Square CM Completed 09/10/2018 03434 Removal Devitalization Tissue Wound Less Than Equal 20 Completed Square CM 07/21/2018 53752 Removal Devitalization Tissue Wound Less Than Equal 20 Completed Square CM 07/14/2018 27644 Removal Devitalization Tissue Wound Less Than Equal 20 Completed Square CM 07/09/2018 45680 Removal Devitalization Tissue Wound Less Than Equal 20 Completed Square CM Medical Devices Description No Information Available Encounters Description No Information Available Assessments Date Code Description Provider 10/27/2018 M06.4 Inflammatory polyarthropathy Itz Arteaga M.D. 10/27/2018 R20.8 Other disturbances of skin sensation Itz Arteaga M.D. 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 therapy 10/27/2018 M25.552 Pain in left hip Itz Arteaga M.D. 09/10/2018 L97.821 Non-prs chr ulcer oth prt l low leg Geraldo De Anda M.D. limited to [facility] 09/10/2018 I87.312 Chronic venous hypertension Geraldo De Anda M.D. 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 limited to [facility] 09/10/2018 I87.311 Chronic venous hypertension Geraldo De Anda M.D. (idiopathic) with ulcer of right 09/10/2018 I87.2 Venous insufficiency (chronic) Geraldo De Anda M.D. (peripheral) 09/10/2018 Z79.01 correction (current) use of Geraldo De Anda M.D. anticoagulants 07/21/2018 L97.811 Non-prs chr ulcer oth prt r low leg Geral[facility] M.[facility]. [facility] [place] 07/21/2018 I87.311 Chronic venous hypertension Geraldo De Anda M.D. (idiopathic) with ulcer of right 07/21/2018 L97.821 Non-prs chr ulcer oth prt l low leg Geraldo De Anda M.D. limited to brkdwn skin 07/21/2018 I87.312 Chronic venous hypertension Geraldo De Anda M.D. (idiopathic) with ulcer of left 07/21/2018 I87.2 Venous insufficiency (chronic) Geraldo De Anda M.D. 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 anticoagulants 07/14/2018 L97.811 Non-prs chr ulcer oth prt r low leg Geraldo De Anda M.D. limited to brkdwn skin 07/14/2018 I87.311 Chronic venous hypertension Geraldo De Anda M.D. (idiopathic) with ulcer of right 07/09/2018 I87.311 Chronic venous hypertension Darby Caballero DNP, RN, (idiopathic) with ulcer of right B OPERATOR-BC 07/09/2018 L97.812 Non-prs chronic ulcer oth prt r low Darby Caballero DNP , RN, leg w fat layer exposed B OPERATOR-BC Plan of Treatment Future Appointment(s):12/14/2018 9:40 am - [facility] M.D. [facility]2018 - Itz Arteaga M.D.M06.4 Inflammatory opycoalbxeqnrduJ77.8 Other disturbances of skin suropkdamQ15.899 Other middle or intermediate school principal (current) drug xkomkofF12.552 Pain in left hipNew Medication:Lidoderm 5 % - 1 apply to affected painful area 12 hours on, 12 hours offFollow up:Follow up in 3 to 4 weeks or sooner if needed on Friday Functional Status Description No Information Available Mental Status Description No Information Available Referrals Description No Information Available
--- OUTSIDE RECORDS SUMMARY | 2018-12-24 11:15 | XMS REPORT | Continuity of Care Document ---
:1940 External Reference #:[id number] Author Name Soledad Duenas NP Address [address] [place] [address] Care Team Providers Name Role Phone Gregory Edge - Family Medicine Care Team Information Race Relations Adviser [phone] [facility] - Cardiovascular Care Team Information Race Relations Adviser [phone] Disease Contreras Tavarez - Cardiovascular Care Team Information Race Relations Adviser Disease Problems Active Problems Provider Date Low back pain Gregoyr Edge M.D. Onset: 03/11/2005 Benign essential hypertension Gregory Edge M.D. Onset: 03/11/2005 Gastroesophageal reflux disease Gregory Edge M.D. Onset: 03/11/2005 Headache Gregory Edge M.D. Onset: 03/11/2005 Arthropathy Gergory Edge M.D. Onset: 06/14/2005 Myalgia & Myositis Unspecified Gregory Edge M.D. Onset: 10/16/2005 Hypothyroidism Gregory Edge M.D. Onset: 05/16/2006 Inflammatory polyarthropathy Gregory Edge M.D. Onset: 10/13/2006 Rosacea Gregory Edge M.D. Onset: 07/20/2010 Rheumatic mitral regurgitation Gregory Edge M.D. Onset: 07/20/2010 Congestive heart failure Gregory Edge M.D. Onset: 07/20/2010 Heart valve replacement Gregory Edge M.D. Onset: 10/05/2010 Nausea and vomiting Gregory Edge M.D. Onset: 10/16/2010 Cellulitis and abscess of lower limb Gregory Edge M.D. Onset: 11/13/2010 Anticoagulant agent Gregory Edge M.D. Onset: 11/13/2010 Mitral valve disorder Gregory Edge M.D. Onset: 12/13/2010 Constipation Gregory Edge M.D. Onset: 12/13/2010 Chest pain Gregory Edge M.D. Onset: 02/18/2011 Palpitations Gregory Edge M.D. Onset: 02/18/2011 Weight decreased Gregory Edge M.D. Onset: 03/19/2011 Idiopathic peripheral neuropathy Gregory Edge M.D. Onset: 05/20/2011 Carpal tunnel syndrome Gregory Edge M.D. Onset: 06/03/2011 Bite of nonvenomous arthropod Gregory Edge M.D. Onset: 06/03/2011 Acute sinusitis Gregory Edge M.D. Onset: 09/10/2011 Acute pharyngitis Gregory Edge M.D. Onset: 09/10/2011 Blood chemistry abnormal Gregory Edge M.D. Onset: 09/16/2011 Inflammatory polyarthropathy Gregory Edge M.D. Onset: 11/05/2011 Difficulty breathing Gregory Edge M.D. Onset: 01/13/2012 Acute upper respiratory infection Gregory Edge M.D. Onset: 06/29/2012 Impacted cerumen Gregory Edge M.D. Onset: 06/29/2012 Malaise and fatigue Gregory Edge M.D. Onset: 12/25/2012 Cardiac pacemaker in situ Gregory Edge M.D. Onset: 06/01/2013 Deficiency anemias Gregory Edge M.D. Onset: 04/21/2014 Hypoxemia Gregory Edge M.D. Onset: 04/21/2014 Disorder of skin Itz Omalley M.D. Onset: 05/13/2014 Gastritis Gregory Edge M.D. Onset: 06/13/2014 Open wound of knee and/or leg and/or ankle Gregory Edge M.D. Onset: 2014 Hemorrhage of rectum and anus Gregory Edge M.D. Onset: 10/06/2014 Essential hypertension Gregory Edge M.D. Onset: 12/06/2014 Unspecified systolic (congestive) heart Gregory Edge M.D. Onset: 2014 failure Bronchitis Gregory Edge M.D. Onset: 01/28/2015 Inflammatory polyarthropathy Gregory Edge M.D. Onset: 01/30/2015 Hypokalemia Gregory Edge M.D. Onset: 04/19/2015 Hyperlipidemia Gregory Edge M.D. Onset: 08/10/2015 Shoulder joint pain Gregory Edge M.D. Onset: 01/01/2016 Arthralgia of the pelvic region and thigh Gregory Edge M.D. Onset: 2015 Paroxysmal atrial fibrillation Gregory Edge M.D. Onset: 03/19/2016 Right lower quadrant pain Gregory Edge M.D. Onset: 05/13/2016 Contusion of upper arm Gregory Edge M.D. Onset: 05/30/2016 Contusion of hip Gregory Edge M.D. Onset: 05/30/2016 Contusion of knee Gregory Edge M.D. Onset: 05/30/2016 Contusion of lower leg Gregory Edge M.D. Onset: 05/30/2016 Contusion of ankle Gregory Edge M.D. Onset: 05/30/2016 Contact dermatitis Gregory Edge M.D. Onset: 06/10/2016 Neck pain Gregory Edge M.D. Onset: 05/22/2017 Peripheral venous insufficiency Gregory Edge M.D. Onset: 10/10/2017 Venous ulcer of lower extremity due to Gregory Edge M.D. Onset: 10/10/2017 chronic peripheral venous hypertension Cellulitis of right lower limb Gregory Egde M.D. Onset: 11/13/2017 Social History Type Date Description Comments Sex Unknown Tobacco Use Start: Unknown Nonsmoker ETOH Use Currently consumes alcohol glass or 2 of wine a month Tobacco Use Start: Unknown Patient has never smoked Smoking Status Reviewed: 11/18/18 Patient has never smoked Allergies, Adverse Reactions, Alerts Description No Known Drug Allergies Medications Active Medications SIG Qnty Indications Ordering Date Provider Physical Therapy please diagnose and R54 Soledad Nuno. 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 1% Cream Metoprolol Succinate 1 by mouth every day Gregory Lewis 08/18/2017 ER Midura, M.D. 25mg Tablets ER 24HR Eliquis take 1 tablet by 60tabs I48.0 Gregory Lewis 08/18/2017 5mg Tablets mouth two times Midnoel, M.D. daily for atrial fibrillation Oxycodone HCL take one tablet by 120tabs M54.5 Gregory Lewis 05/24/2017 20mg mouth four times a Midura MJeromeD. Tablets day as directed, max/day 4 tablets Lactulose 1 tablespoon twice a 16Oz Gregory Lewis 04/21/2017 10GM/15ML day as needed for Midura, M.D. Solution constipation Spironolactone 1 by mouth twice a 60tabs Gregory Lewis 12/27/2016 50mg day Midura, M.D. Tablets Magnesium Oxide 1 by mouth bid Unknown 07/18/2016 400mg Tablets Hydrocortisone apply twice a day to 56.7gm Gregory Lewis 06/10/2016 2.5% affected skin as Midura, M.D. Cream needed Oxycontin take one tablet by 90tabs Gregory Lewis 05/30/2016 80mg Tab ER mouth three times a Midura, M.D. 12H Abuse-Det day as needed Potassium Chloride take one tablet by 90tabs Gregory Lewis 04/27/2015 Jenae ER mouth three times a Midura, MJeromeD. 20Meq Tablets day ER Atorvastatin Calcium take one tablet by 30tabs Gregory Lewis 01/03/2015 mouth at bedtime for Tawanna EdgeDJerome 10mg Tablets cholesterol Torsemide take one tablet by 60tabs Gregory Lewis 12/06/2014 20mg mouth twice a day Tawanna EdgeDJerome Tablets for fluid retention as needed Prednisone take 1 to 2 tablets 120tabs Gregory Lewis 10/20/2014 5mg by mouth two times a Midnoel M.D. Tablets day as needed for leg pain Ondansetron Place One Tablet By 40tabs Gregory Lewis 09/07/2013 4mg Mouth Four Times A Midura, M.D. Tablets Dispers Day as Needed For Nausea Oxygen Therapy Conserving device. Gregory Lewis 04/12/2013 Keep SaO2 greater Edward Edge than 90 % Voltaren apply two times a 300units Soledad Yee 10/06/2009 1% Gel day as directed as JOE Duenas needed Vitamin D 1 po bid for vitamin 60tabs Gregory Lewis 05/29/2009 1000Unit d deficiency Edward Edge Tablets Nexium take one capsule by 30caps Gregory Lewis 10/24/2003 40mg Capsules mouth once daily as Edward Edge DR needed for stomach Vitamin B-12 Unknown 1000mcg Tablets History Medications Azithromycin 2 by mouth today 6tabs Gregory Lewis 08/06/2018 - 250mg and 1 by mouth x 4 Kely M.D. 11/18/2018 Tablets days Amoxicillin/Clavulanat 1 twice a day w/ 20tabs G89.29 Gregory Lewis 08/04/2018 - e Potassium food. for upper Midnoel MJeromeDJerome 08/06/2018 875-125mg respiratory Tablets infection Nitrofurantoin Monohyd take one by mouth 14caps N39.0 Soledad Yee 06/04/2018 - Macro twice daily for 5 JOE Duenas 08/04/2018 100mg Capsules days. Medications Administered in Office Medication SIG Qnty Indications Ordering Provider Date H1N1 MDCR vaccine any route Gregory Edge M.D. 03/01/2009 Injection Immunizations CPT Code Status Date Vaccine Lot # [id number] Given 12/12/2017 Pneumococcal Conjugate Vacc-13 [id number] Given 12/12/2017 High-Dose, Influenza Virus Vacccine-fluzone 65 [id number] and older 19635 Given 12/17/2016 High-Dose, Influenza Virus Vacccine-fluzone 65 [id number] and older 92246 Given 01/01/2016 High-Dose, Influenza Virus Vacccine-fluzone 65 [id number] and older 32654 Given 12/06/2014 Influenza Vac, Quadrivalent, Slit Virus, Im [id number] 00420 Given 12/28/2013 High-Dose, Influenza Virus Vacccine-fluzone 65 [id number] and older 31880 Given 05/04/2013 High-Dose, Influenza Virus Vacccine-fluzone 65 [id number] and older 47611 Given 11/20/2011 DO Not Use Split Influenza Virus Vaccine 03118 Given 11/24/2009 DO Not Use Split Influenza Virus Vaccine [id number] 34424 Given 03/01/2009 DO Not Use Split Influenza Virus Vaccine [id number] 82976 Given 03/01/2009 H1N1 Virus Vaccine [id number] 96656 Given 02/10/2008 DO Not Use Split Influenza Virus Vaccine [id number] 50417 Given 12/12/2005 DO Not Use Split Influenza Virus Vaccine [id number] 97833 Given 02/08/2005 DO Not Use Split Influenza Virus Vaccine 22049 Given 01/06/2003 Pneumococcal Immunization 60517 Given 01/05/2002 DO Not Use Split Influenza Virus Vaccine 78867 Given 03/12/2001 Influenza Immunization 47531 Given 03/12/2001 DO Not Use Split Influenza Virus Vaccine Vital Signs Date Vital Result Comment 11/18/2018 10:28am BP Systolic 138 mmHg BP Diastolic 80 mmHg Heart Rate 78 /min Body Temperature 97.7 F Respiratory Rate 16 /min O2 % BldC Oximetry 97 % 5L Height 65 inches 5'5" Weight 140.00 lb BMI (Body Mass Index) 23.3 kg/m2 08/04/2018 1:17pm BP Systolic 130 mmHg BP Diastolic 80 mmHg Heart Rate 66 /min Body Temperature 979.9 F Respiratory Rate 20 /min O2 % BldC Oximetry 1006 % Height 65 inches 5'5" Weight 158.38 lb BMI (Body Mass Index) 26.4 kg/m2 Results Test Date Facility Test Result H/L Range Note Laboratory test 08/04/2018 [facility] C-Reactive 4.2 mg/L 0.0-4.9 1, 2 finding [address] [facility] Protein, [place] [address] Quant (607)- - Antinuclear Antibodies, Ifa Negative 3 Rheumatoid 08/04/2018 [facility] Ra Latex <10.0 IU/mL 0.0-13.9 Arthritis Factor [address] [place] [address] [facility] ([facility]) [place] [address] (607)- - Lyme Antibody, 08/04/2018 [facility] IgG P93 Ab. Absent Line Blot, Serum [address] [place] [id number] (607)- - IgG P66 Ab. Absent IgG P58 Ab. Absent IgG P45 Ab. Absent IgG P41 Ab. Absent IgG P39 Ab. Absent IgG P30 Ab. Absent IgG P28 Ab. Absent IgG P23 Ab. Absent IgG P18 Ab. Absent Lyme IgG WB Interp. Negative 4 IgM P41 Ab. Absent IgM P39 Ab. Absent IgM P23 Ab. Absent Lyme IgM WB Interp. Negative 5 Comprehensive Metabolic 08/04/2018 [facility]ma) Sodium 142 mEq/L 134-149 Prof Potassium 2.7 mEq/L Low 3.6-5.5 6 Chloride 97 mEq/L 94-112 Carbon Dioxide 32 mEq/L 21-32 Glucose 126 mg/dL High 70-105 7 BUN 15 mg/dL 6-26 Creatinine 0.8 mg/dL 0.6-1.4 BUN/Creat Ratio 18.8 CALC 8.0-36.0 Calcium 8.8 mg/dL 8.6-10.2 Total Protein 7.3 g/dL 6.4-8.3 Albumin 3.9 g/dL 3.8-5.5 Globulin 3.4 g/dL 2.0-4.8 A/G Ratio 1.1 CALC 0.6-2.3 Alk. Phosphatase 97 U/L 30-110 Alt (SGPT) 8 U/L 7-35 Ast (Sgot) 18 U/L 5-34 Total Bilirubin 0.9 mg/dL 0.2-1.3 GFR Non- >60 ml/min/1.73m^ >=60 GFR >60 ml/min/1.73m^ >=60 Laboratory test 08/04/2018 [facility]) TSH 7.06 mIU/L High 0.50- 6.00 8 finding Uric Acid 8.7 mg/dL 2.5-9.2 CBC Electronic Fma 08/04/2018 [facility](a) WBC 4.2 x10^3/UL 4.0- 10.0 RBC 3.83 x10^6/UL Low 3.93-6.00 9 HGB 12.2 g/dL 12.0-17.0 HCT 39 % 35-50 MCV 101.6 fL High 80.0-95.0 MCH 31.9 pg 25.6-32.2 MCHC 31.4 g/dL Low 32.2-36.0 RDW-CV 14.5 % High 11.6-14.4 PLT 102 x10^3/UL Low 163-400 MPV 10.9 fL 9.4-12.4 Elaine# 2.69 x10^3/UL 1.56-6.13 Lymph# 0.77 x10^3/UL Low 1.18-3.74 [place]# 0.37 x10^3/UL 0.24-0.82 Eos # 0.3 x10^3/UL 0.0-0.5 Baso # 0.03 x10^3/UL 0.01-0.08 Elaine% 64.8 % 34.0-70.0 Lymph % 18.6 % Low 20.0-52.0 [place]% 8.9 % 5.0-12.0 Eos% 7.0 % 0.7-7.0 Baso% 0.7 % 0.1-1.2 Laboratory test 08/04/2018 [facility](a) Free T4 1.06 ng/dL 0.75- 1.54 finding Ua - Micro (Fma) 06/04/2018 Family Medicine Appearance cloudy (607)- - Color yellow Glucose, Urine (Fma/CMC/CTX) negative Bilirubin ICTO negative Ketones trace SP Grav 1.020 Blood .moderate PH 7.5 Protein SSA 1+ Urobil 1.0 Nitrite positive Leukocytes (Fma/CMC/Centrex) negative Hyaline - /Lpf Granular - /Lpf WBC (Fma,Centrex) >100 RBC 10-15 Mucus (Fma/CBC/Centrex) 0 /Lpf Epith rare /Lpf Bacteria 4+ /Hpf Amorphous (Fma/CMC/Centrex) 0 /Lpf Crystals, Fluid (Fma/CMC/CTX) 0 Z#Comments 0 Urine Culture And Sensitivities 06/04/2018 [facility] Urine Culture SEE RESULT BELOW 10 1 2 sst 2 Effective August 17, 2018 the reference interval for C-Reactive Protein, Quant, will be changing to: Age Male Female 0 - 30 days Not Estab. Not Estab. 1 month - 17 years 0 - 7 0 - 9 >17 years 0 - 10 0 - 10 3 Negative <1:80 Borderline 1:80 Positive >1:80 4 Positive: 5 of the following Borrelia-specific bands: 18,23,28,30,39,41,45,58, 66, and 93. Negative: No bands or banding patterns which do not meet positive criteria. 5 Note: An equivocal or positive EIA result followed by a negative Western Blot result is considered NEGATIVE. An equivocal or positive EIA result followed by a positive Western Blot is considered POSITIVE by the CDC. Positive: 2 of the following bands: 23,39 or 41 Negative: No bands or banding patterns which do not meet positive criteria. Criteria for positivity are those recommended by CDC/ASTPHLD. p23=Osp C, c65=gswmuibud Note: Sera from individuals with the following may cross react in the Lyme Western Blot assays: other spirochetal diseases (periodontal disease, leptospirosis, relapsing fever, yaws, and pinta); connective autoimmune (Rheumatoid Arthritis and Systemic Lupus Erythematosus and also individuals with Antinuclear Antibody); other infections ([place] Spotted Fever; Lucila-Galloway Virus, and Cytomegalovirus). 6 RESULTS VERIFIED BY REPEAT ANALYSIS 7 NON-FASTING 8 RESULTS VERIFIED BY REPEAT ANALYSIS 9 consistent w/ previous results 10 SEE RESULT BELOW Name: AFTAB BAIN : [address]: Soledad Duenas TRAVELING SALES EXECUTIVE Acct: [id number] Unit: [id number] AGE: 77 Location: [facility] Re06/04/18 SEX: F Status: REG REF SPEC: [id number] DENICE: 06/04/18-1557 [facility] DR: Soledad Duenas TRAVELING SALES EXECUTIVE REQ: [id number] RECD: 06/04/18 STATUS: COMP _ SOURCE: URINE SPDESC: ORDERED: Urine Culture COMMENTS: [id number] banegas urine transport tube sent Urine Source: Random Procedure Result Reported Site Urine Culture Final 06/06/18- 0911 ML Organism 1 ESCHERICHIA COLI [place] Count >100,000 (Many) CFU/ML 1. ESCHERICHIA COLI M.I.C. RX --------- ------ Ampicillin >=32 R Cefazolin 8 S Cefepime <=1 S Ceftriaxone <=1 S Ciprofloxacin <=0.25 S Gentamicin <=1 S Levofloxacin <=0.12 S Meropenem <=0.25 S Nitrofurantoin <=16 S Tetracycline <=1 S Pipercillin/Tazobactam 16 S Trimethoprim/Sulfamethoxazole >=320 R Amoxicillin/Clavulanic Acid >=32 R Aztreonam <=1 S Contact the Microbiology Department for any additional antibiotic reporting. * [facility] - Main Lab . END OF REPORT DEPARTMENT OF PATHOLOGY, [address] [place] [address] Troy Sheppard M.D. Director [facility] # [id number] Procedures Date Code Description Status 08/04/2018 83019 Pulse Oximetry Completed 09/16/2014 54847287 Colonoscopy Completed 05/30/2014 [id number] Colonoscopy Completed 08/02/2007 290479643 Bone Mineral Density Test Completed 03/03/2005 [id number] Mammogram Completed Medical Devices Description No Information Available Encounters Type Date Location Provider Dx Diagnosis Office Visit 08/04/2018 Main Office Gregory Edge, G89.29 Other chronic pain 1:00p M.D. J06.9 Acute upper respiratory infection, unspecified I10 Essential (primary) hypertension Z95.2 Presence of prosthetic heart valve M54.5 Low back pain M06.4 Inflammatory polyarthropathy I48.0 Paroxysmal atrial fibrillation I87.2 Venous insufficiency (chronic) (peripheral) I50.20 Unspecified systolic (congestive) heart failure Z95.0 Presence of cardiac pacemaker E03.8 Other specified hypothyroidism Office Visit 06/09/2018 2:30p Main Office Caitlin Bauer, S80.01xA Contusion of Afnp-C right knee, initial encounter G89.29 Other chronic pain W01.198A Fall same lev from slip/trip w strike agnst oth object, init Office Visit 06/04/2018 3:15p Main Office Soledad Duenas, N39.0 Urinary tract TRAVELING SALES EXECUTIVE infection, site not specified Assessments Date Code Description Provider 11/18/2018 I50.20 Unspecified systolic (congestive) heart Soledad Duenas , JOE failure 11/18/2018 M06.4 Inflammatory polyarthropathy Soledad Duenas, JOE 11/18/2018 R29.890 Loss of height Soledad Duenas, JOE 11/18/2018 R54 Age-related physical debility Soledad Duenas, JOE 08/05/2018 I50.20 Unspecified systolic (congestive) heart Gregory Edge M.D. failure 08/05/2018 M06.4 Inflammatory polyarthropathy Gregory Edge M.D. 08/05/2018 G89.29 Other chronic pain Gregory Edge M.D. 08/05/2018 E03.8 Other specified hypothyroidism Gregory Edge M.D. 08/04/2018 G89.29 Other chronic pain Gregory Edge M.D. 08/04/2018 J06.9 Acute upper respiratory infection, Gregory Edge M.D. unspecified 08/04/2018 I10 Essential (primary) hypertension Gregory Edge M.D. 08/04/2018 Z95.2 Presence of prosthetic heart valve Gregory Edge M.D. 08/04/2018 M54.5 Low back pain Gregory Edge M.D. 08/04/2018 M06.4 Inflammatory polyarthkavitha Edge M.D. 08/04/2018 I48.0 Paroxysmal atrial fibrillation Gregory Edge M.D. 08/04/2018 I87.2 Venous insufficiency (chronic) Gregory Edge M.D. (peripheral) 08/04/2018 I50.20 Unspecified systolic (congestive) heart Gregory Edge M.D. failure 08/04/2018 Z95.0 Presence of cardiac pacemaker Gregory Edge M.D. 08/04/2018 E03.8 Other specified hypothyroidism Gregory Edge M.D. 06/09/2018 S80.01xA Contusion of right knee, initial Dariel Peña encounter 06/09/2018 G89.29 Other chronic pain Samantha Peña 06/09/2018 W01.198A Fall on same level from slipping, Raul Peña tripping and stumbling wit 06/04/2018 N39.0 Urinary tract infection, site not Soledad Duenas TRAVELING SALES EXECUTIVE specified Plan of Treatment Future Appointment(s):11/24/2018 11:40 am - Gregory Edge M.D. at Main [facility]11/18/2018 - Soledad Duenas, NPI50.20 Unspecified systolic (congestive ) heart failureComments:Continue to follow-up with your gjfcipfxznlvU50.4 Inflammatory qycqjelgpankrmlT45.890 Loss of gxdednQ88 Age-related physical debilityNew Medication:Physical Therapy - please diagnose and treat for generalized balance and strengthComments:Start physical therapy and follow-up with Dr. Edge next week -- hopefully we'll have the full records by then.AllComments:1. Patient has been queried about patient's goals/preferences and functional/lifestyle goals at relevant visits. If relevant, describe: Has been discussed, noted above2. Treatment goals as explainedto the patient: see above3. Are there barriers to meeting treatment goals? Yes If Yes, please describe: Barriers include possible insurance limits, disease process, and difficulty with lifestyle changes4. Self-Management goals as described to the patient: Yes, see above As always, we strongly encourage a healthy diet and making physical activity a part of your every day life. If you have questions about how or where to start, please contact the office. Functional Status Description No Information Available Mental Status Description No Information Available Referrals Description No Information Available
[2018-12-24] MEDS ORDERED: Cefepime(*) 2 GM in NS 0.9% 50 ML* 50 ML IVPB ONE (11:22)
[2018-12-24] MEDS ORDERED: metroNIDAZOLE IV 500 MG/100ML* 500 MG/100 ML BAG IVPB ONE (11:22)
[2018-12-24] MEDS ORDERED: Vancomycin(*) 1,000 MG BAG/ADDV IVPB ONE (11:50)
[2018-12-24 11:54] LABS: ABS Lymphocytes 0.4 10^3/ul (1.0-4.8); ABS Monocytes 0.4 10^3/ul (0-0.8); ABS Neutrophils 5.1 10^3/ul (1.5-7.7); Eosinophil % 0.3 %; Hematocrit 38 % (35-47); Hemoglobin 12.5 g/dL (12.0-16.0); Lymphocyte % 7.2 %; Mean Corpuscular HGB Conc 33 g/dL (31-36); Mean Corpuscular Hemoglobin 31 pg (27-31); Mean Corpuscular Volume 95 fL (80-97); Mean Platelet Volume 8.3 fL (7.4-10.4); Nucleated Red Blood Cells % 0.1; Platelet Count 157 10^3/uL (150-450); Red Blood Count 4.03 10^6 /uL (3.70-4.87); Red Cell Distribution Width 16 % (10-15); White Blood Count 6.1 10^3/uL (3.5-10.8)
[2018-12-24] MEDS ORDERED: Vancomycin(*) 1,000 MG in NS 0.9% 250 ML* 250 ML IVPB ONE ×4 (12:00)
[2018-12-24] MEDS ORDERED: Cefepime 2 GM in Dextrose(*) 2 GM/50 ML BAG IV ONE (12:00)
[2018-12-24] MEDS ORDERED: Vancomycin(*) 1,000 MG VIAL IVPB SCH (12:00)
[2018-12-24] MEDS ORDERED: Morphine 4 MG/ML VIAL (1 ml) 4 MG/ML VIAL IV ONE (12:06)
[2018-12-24] MEDS ORDERED: Ondansetron INJ* 2 MG/ML VIAL IV ONE (12:10)
[2018-12-24 12:21] LABS: Albumin 3.5 g/dL (3.2-5.2); Albumin/Globulin Ratio 0.7 (1-3); Calcium 9.1 mg/dL (8.6-10.3); EGFR African American 84.4 (>60); EGFR Non-African American 69.7 (>60); Globulin 4.7 g/dL (2-4); Potassium 3.7 mmol/L (3.5-5.0); Total Protein 8.2 g/dL (6.4-8.9); Troponin I 0.02 ng/mL (<0.04)
[2018-12-24 12:29] LABS: Urine Appearance Clear; Urine Bacteria Absent (Absent); Urine Bilirubin Negative (Negative); Urine Blood Negative (Negative); Urine Color Yellow; Urine Glucose Negative (Negative); Urine Ketones Negative (Negative); Urine Nitrite Negative (Negative); Urine Protein 2+(100 mg/dL) (Negative); Urine Red Blood Cell Absent (Absent); Urine Renal Epithelial Cells Present (Absent); Urine Specific Gravity 1.019 (1.010-1.030); Urine Squamous Epithelial Cell Present (Absent); Urine Urobilinogen Positive (Negative); Urine White Blood Cell Trace(0-5/hpf) (Absent)
[2018-12-24 12:37] LABS: Activated Partial Thrombo Time 37.4 seconds (26.0-38.0); INR 1.44 (0.82-1.09)
[2018-12-24] MEDS ORDERED: Acetaminophen TAB* 325 MG PO PRN (14:02)
[2018-12-24] MEDS ORDERED: Ondansetron INJ* 2 MG/ML VIAL IV PRN (14:02)
[2018-12-24] MEDS ORDERED: Albuterol 2.5 MG/3 ML NEB.SOL* (0.083%) INH PRN (14:02)
[2018-12-24] MEDS ORDERED: Ondansetron TAB* 4 MG PO PRN (14:10)
[2018-12-24 14:48] LABS: C Reactive Protein 21.48 mg/L (<8.01)
[2018-12-24] MEDS ORDERED: Vancomycin per Pharmacy* NOTE FOLLOW UP SCH (15:00)
--- NOTE | 2018-12-24 15:30 | HP ---
CC: Dr. Jovany Orta; Dr. Ponce HISTORY AND PHYSICAL: DATE OF ADMISSION: 12/24/18 PRIMARY CARE PROVIDER: Dr. Gregory Edge. CHIEF COMPLAINT: Lower extremity pain. SUBJECTIVE: This is a 77-year-old female seen in the emergency room at the request of the emergency room attending, Dr. Rubio, for lower extremity pain and swelling suggestive of cellulitis. She was seen in the emergency room. She was very drowsy, groggy as she is on chronic opiate therapy at home including OxyContin 80 mg as well as oxycodone routinely for her chronic lower leg pain, and in jesus tion, she was medicated with morphine 4 mg in the emergency room. She is arousable. She indulges in the history intake, but she falls asleep frequently. She had to be constantly given cues to remain interactive throughout the history. She states that her legs have been chronically swollen and infec harper. She recently established with Wound Care. She has done so far, as she can recall, only 2 visit s. In the last weeks, they have been more swollen and more painful. In the past 3 to 4 days, they h ave been excruciating painful with a pain level 8/10, finally decided to come to the ER to be evaluat ed. In the emergency room, she had a temperature of 101.3 with no white count and normal differentia l. No nausea or vomiting. She has shortness of breath at baseline. She wears 6 L of O2 for her chr onic hypoxic respiratory failure. PAST MEDICAL HISTORY: Significant for: 1. Coronary artery disease. 2. MD x3. 3. Chronic AFib. 4. Chronic anticoagulation with Eliquis. 5. History of ventricular tachycardia, status post biventricular pacemaker and AICD. 6. Ischemic cardiomyopathy, last documented EF is 20% to 25%. 7. Chronic hypoxemic respiratory failure, on 6 L. 8. Hyperlipidemia. 9. TIA. 10. Peripheral vascular disease. Last documented WILBER is on 12/25/17, which reveals the right ankle index at 1.03, left is at 0.96, similar in proximity to her previous exam from 2010. MEDICATIONS: They were reconciled and completed in the ER and as follows: 1. Diclofenac 1 topically b.i.d. 2. Hydrocortisone cream 1 application b.i.d. 3. Prednisone as needed. She confirmed she has been taking for over 2 weeks. 4. Silvadene cream topically b.i.d. 5. Apixaban 5 mg b.i.d. 6. Atorvastatin 10 mg at bedtime. 7. Vitamin D 1000 b.i.d. 8. Vitamin B12 1000 daily. 9. Esomeprazole 40 mg daily. 10. Lactulose 15 b.i.d. 11. Mag-Oxide 400 b.i.d. 12. Metoprolol succinate XL 25 daily. 13. Ondansetron 4 mg 4 times a day p.r.n. 14. Oxycodone SR/OxyContin 40 mg tab, she takes 2 tab p.o. q.8 hours. 15. Oxycodone 20 mg 4 times a day. 16. Potassium 20 mEq t.i.d. 17. Spironolactone 50 b.i.d. 18. Torsemide 40 mg b.i.d. ALLERGIES: No known drug allergies. FAMILY HISTORY: She reports family of mother and father, but they were both healthy as per the patient. SOCIAL HISTORY: Does not smoke. Does not drink. Never . She lives with her significant oth er. 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 She has one child. REVIEW OF SYSTEMS: As per HPI, remaining otherwise unremarkable. PHYSICAL EXAMINATION GENERAL: She is awake, alert to person and place, but slightly groggy and falls asleep easily. VITAL SIGNS: Temperature is 101.3, pulse 91, respiratory rate 26, satting 99%, blood pressure 142/57 . HEAD AND NECK: Normocephalic, atraumatic, supple. Slightly dry oral mucosa. She is mouth breathing . Nasal cannula in place, however, and she is saturating 99% on 5 L. LUNGS: She does have diminished breath sounds at the bases, worse on the right side, with slightly t ransmitted upper airway breath sounds. CARDIOVASCULAR: S1, S2. I did not appreciate any murmur. She has a pacemaker and cardiac device in the right anterior chest wall. ABDOMEN: Positive bowel sounds, soft, nontender. No rebound. EXTREMITIES: She does have bilateral lower extremity chronic venous stasis with some ulceration abou t dime size, erythematous, warm, and red streaking on the right side, slightly surpassing the knee in to the distal proximal thigh. GRIEVANCE COORDINATOR: She is moving upper and lower extremity. Follows command. Slightly lethargic, but arousable a nd responds to voice and verbal cues and command. DIAGNOSTIC STUDIES/LAB DATA: Chemistry: Sodium 138, potassium 3.7, chloride 100, bicarb 31, BUN 12 , creatinine 0.8, sugar 124, calcium 9.1. AST 21, ALT 7. Trop 0.02. BNP greater than 1300. Lactic acid 1.7. CBC: White count 6.1, hemoglobin 12.5, hematocrit 35, platelets 157. EKG is atrioventricular paced rhythm at 80, some PVCs, otherwise no further interpretation given the paced rhythm. Chest x-ray: She does have significantly large cardiac silhouette with right-sided pleural effusion, new when compared to 2017, slightly rotated to the right. IMPRESSION AND PLAN: This is a 77-year-old female comes in with progressive severe lower extremity p ain with erythema, fever, no leukocytosis. She will be admitted for bilateral lower extremity cellul itis. 1. Bilateral lower extremity cellulitis, most likely etiology is chronic venous stasis given her poo r slightly diminished ankle brachial index and of course with her cardiomyopathy and chronic pitting edema. She follows with Wound Care, we called for a consult, spoke with Dr. Ponce for further wound care recommendation. She did receive vancomycin, cefepime, and Flagyl. I am going to continue vanco and cefepime for now and then we will consult with Infectious Disease. Blood cultures and wound cul tures have been obtained. Keep leg elevated and [facility] 2. Ischemic cardiomyopathy with chronically elevated BNP. At this time, I am going to keep her diur etics the same. We will avoid fluid resuscitation given her EF. We will continue her torsemide at 4 0 b.i.d., Aldactone 50 b.i.d., metoprolol 25 daily. I do see that she is not on RAQUEL inhibitor. I am not sure if there is any contraindication due to possible hyperkalemia. I will defer that to her ou tpatient cardiac followup. 3. History of atrial fibrillation, ventricular tachycardia, status post dual lead pacemaker and AICD . Continue her Eliquis 5 b.i.d. Continue Toprol 25 daily. 4. Chronic pain. I did confirm her chronic OxyContin and oxycodone. We will continue the same. 5. Code status: Full code. 6. DVT prophylaxis: Already on Eliquis. [id number]/[facility]PS #: [id number]
[2018-12-24] MEDS: oxyCODONE SR TAB(*) 40 MG TAB.SR PO PRN (16:29)
[2018-12-24 17:06] LABS: Erythrocyte Sed Rate 3 mm/Hr (0-29)
[2018-12-24] MEDS: Metoprolol Succinate XL TAB* 25 MG PO SCH (17:22)
[2018-12-24] MEDS: Torsemide TAB* 20 MG PO SCH ×2 (17:23→21:37)
[2018-12-24] MEDS ORDERED: Torsemide TAB* 20 MG PO SCH (21:00)
[2018-12-24] MEDS: Cholecalciferol TAB* 1000 UNITS PO SCH (21:37)
[2018-12-24] MEDS: Magnesium Oxide TAB* 400 MG PO SCH (21:37)
[2018-12-24] MEDS: Potassium Chlor TAB* 20 MEQ TAB.ER PO SCH (21:37)
[2018-12-24] MEDS: Spironolactone TAB* 25 MG PO SCH (21:37)
[2018-12-24] MEDS: Atorvastatin* 10 MG TAB PO SCH (21:37)
[2018-12-24] MEDS: Apixaban* 5 MG TAB PO SCH (21:38)
[2018-12-24] MEDS: Silver Sulfadiazine 1%* 20 GM TOPICAL SCH (21:38)
[2018-12-24] MEDS: oxyCODONE TAB* 5 MG TAB PO PRN (22:12)
--- NOTE | 2018-12-24 23:52 | CONS ---
CC: [facility]; Wound Clinic; Dr. Gregory Edge at [facility]* SURGICAL CONSULTATION NOTE: DATE OF CONSULT: 12/24/18 ATTENDING SURGEON: Dr. Fortino Ponce. CHIEF COMPLAINT: Bilateral lower extremity wounds. HISTORY OF PRESENT ILLNESS: This is a 77-year-old female with chronic bilateral lower extremity venous insufficiency and nonhealing ulcers. She had been seen in the wound clinic in the past. Her most recent visit being from August. She states that she has some chronic pain and has managed her lower extremity dressings with assistance from family members. She states that beginning 7 to 8 days ago she noted increase in pain, swelling and redness, relieved only by elevation of the legs. She admits to increased temperature, sweats, and chills. Her right lower extremity is worse than the left. She had been treating the wounds with Silvadene at home with covered dressings and Medigrip compression wraps. She apparently has a past history of MRSA but was unclear as to the nature of the infection. She contacted the wound clinic for evaluation but could not be seen until early next week. She therefore presented to the ED. She has been evaluated by the hospitalist and will be admitted to their service. She has already received an initial dose of vancomycin and Flagyl. Apparently, an ID consult was also obtained. One of the wounds on the right lower extremity was swabbed and submitted for culture. She has never had infection like this before with lower extremities nor has she previously required hospitalization for same. PAST MEDICAL HISTORY: Significant for O2 dependent COPD (though the patient has never been a smoker); CHF; GA; chronic atrial fibrillation; pacemaker, AICD placement; hypertension; chronic atrial fibrillation, on chronic anticoagulation ; chronic back pain. PAST SURGICAL HISTORY: Includes open cholecystectomy and pacemaker AICD placement. MEDICATIONS: Home medications include: 1. Eliquis. 2. Metoprolol. 3. Potassium chloride. 4. Spironolactone. 5. Torsemide. 6. Oxycodone sustained release. 7. Oxycodone immediate release. 8. Silvadene topically. 9. Zofran p.r.n. (uses rarely). 10. Lactulose p.r.n. (uses infrequently). 11. Diclofenac gel topically for back pain. 12. Vitamin D. 13. Vitamin B12. ALLERGIES: Drug allergies include HEPARIN (hives) and ADHESIVE TAPE (itchiness) . Her remaining past medical history, family history, and social history are detailed in her admission and physical, which is not repeated here. REVIEW OF SYSTEMS: As per her H and P. At present, she denies chest pain or shortness of breath. She is on 5 L nasal O2 at home chronically. Musculoskeletal: Chronic back pain. PHYSICAL EXAM: Temperature 101.3, blood pressure 165/70, pulse 80, respirations 22, O2 saturation on 5 L, 97%. General: Somewhat chronically ill- appearing female, in mild distress secondary to pain. Skin: Warm and dry. No suspicious rashes or lesions. See also below for extremities. Heart: Regular rate and rhythm. No murmur noted. Lungs: Clear to auscultation. Few bibasilar crackles left greater than right. Abdomen: Soft, nontender to palpation. No palpable masses or organomegaly. Extremities: Femoral pulses are easily palpable, somewhat difficult to feel peripheral pulses bilaterally though these were documented by the ED physician and by her prior wound clinic visit. Both lower extremities are characterized by hyperpigmentation and diffuse moderate erythema extending from the proximal calf and anterior tibial areas to the base of the toes. There are multiple ulcers on the right lower extremity including 2 anteriorly, each measuring 1 x 2 cm, a larger lesion anteromedially measuring 3.5 x 3.5 cm and another in the posteromedial aspect measuring 4 x 4 cm in greatest dimension. In addition, there is a smaller lesion measuring approximately 1 x 2 cm in the right lateral lower extremity, in the left lower extremity also measuring 1.5 x 1 cm. The ulcers vary from being open with granulation tissue to having thin intact eschar. In addition, there is scaling of both lower extremities and hyperpigmentation. She has 1+ pitting edema bilaterally. Pulses as noted above. Neurological: Sensation is intact to light touch for both distal lower extremities. DIAGNOSTIC STUDIES/LAB DATA: White blood cell count 6100, hemoglobin 12.5, hematocrit 38. Chemistries normal with the exception of chloride 100, glucose 124, alkaline phosphatase 130, CRP 21. C and S of one of the right lower extremity wounds is pending. IMPRESSION: Bilateral lower extremity chronic venous insufficiency with multiple nonhealing ulcers of various stages with cellulitis, right greater than left. PLAN: The patient is admitted to the hospitalist service with antibiotics per the hospitalist and/or Infectious Disease. Wound care instructions will be ordered but local wound care and elevation or compression are present requirements. There is no need for surgical debridement, I and D, or unroofing of any of the ulcers. We will follow her course while in the hospital and then she may return for follow in the wound clinic upon discharge. UYEN CAVANAUGH [id number]/[facility] #: [id number] MARISOL
[2018-12-25] MEDS: Cefepime 2 GM in Dextrose(*) 2 GM/50 ML BAG IV SCH ×3 (00:01→23:20)
[2018-12-25] MEDS: Vancomycin(*) 750 MG in NS 0.9% 250 ML* 250 ML IVPB SCH ×2 (00:41→13:12)
[2018-12-25] MEDS: oxyCODONE TAB* 5 MG TAB PO PRN ×2 (05:28→21:57)
[2018-12-25 06:08] LABS: BUN/Creatinine Ratio 16.9 (8-20); Calcium 8.4 mg/dL (8.6-10.3); EGFR African American 88.2 (>60); EGFR Non-African American 72.9 (>60); Magnesium 1.6 mg/dL (1.9-2.7); Potassium 3.8 mmol/L (3.5-5.0)
[2018-12-25 06:12] LABS: ABS Eosinophils 0.1 10^3/ul (0-0.6); ABS Lymphocytes 0.4 10^3/ul (1.0-4.8); ABS Monocytes 0.4 10^3/ul (0-0.8); ABS Neutrophils 3.1 10^3/ul (1.5-7.7); Eosinophil % 1.6 %; Hematocrit 33 % (35-47); Hemoglobin 10.7 g/dL (12.0-16.0); Mean Corpuscular HGB Conc 32 g/dL (31-36); Mean Corpuscular Hemoglobin 30 pg (27-31); Mean Corpuscular Volume 94 fL (80-97); Nucleated Red Blood Cells % 0.2; Platelet Count 118 10^3/uL (150-450); Red Blood Count 3.52 10^6 /uL (3.70-4.87); Red Cell Distribution Width 16 % (10-15); White Blood Count 4.1 10^3/uL (3.5-10.8)
[2018-12-25] MEDS: Spironolactone TAB* 25 MG PO SCH ×2 (07:54→21:56)
[2018-12-25] MEDS: Torsemide TAB* 20 MG PO SCH ×2 (07:54→21:56)
[2018-12-25] MEDS: Cyanocobalamin TAB* 500 MCG PO SCH (07:54)
[2018-12-25] MEDS: Potassium Chlor TAB* 20 MEQ TAB.ER PO SCH ×3 (07:54→21:56)
[2018-12-25] MEDS: Metoprolol Succinate XL TAB* 25 MG PO SCH (07:54)
[2018-12-25] MEDS: Magnesium Oxide TAB* 400 MG PO SCH ×2 (07:54→21:57)
[2018-12-25] MEDS: Apixaban* 5 MG TAB PO SCH ×2 (07:54→21:57)
[2018-12-25] MEDS: Pantoprazole TAB * 40 MG TAB PO SCH (07:54)
[2018-12-25] MEDS: Cholecalciferol TAB* 1000 UNITS PO SCH ×2 (07:54→21:57)
[2018-12-25] MEDS: Silver Sulfadiazine 1%* 20 GM TOPICAL SCH ×2 (07:55→23:40)
--- NOTE | 2018-12-25 11:43 | CONS ---
CONSULTATION REPORT: DATE OF CONSULT: 12/25/18 REQUESTING PHYSICIAN: Dr. Landis. CONSULTING SERVICE: Infectious Disease. REASON FOR CONSULT: Leg wound. IMPRESSION: 1. Bilateral lower extremity venous insufficiency with venous stasis ulceration and stasis dermatitis, both legs. Component of cellulitis in the right lower extremity and wound infection with some purulent drainage. No evidence of an abscess. Wound culture was taken. The Gram stain showed no organisms. Culture is pending. She did have a fever of 38.5 overnight, but otherwise feels well. 2. History of pacemaker placement. 3. Coronary artery disease. 4. Atrial fibrillation. 5. Ischemic cardiomyopathy, ejection fraction 20% to 25%. RECOMMENDATIONS: I agree with broad-spectrum antibiotics, vancomycin goal trough 10 to 15 and cefepime which she can decrease to 1 g every 12 hours. I will follow the wound culture. She will need to keep the legs elevated, have local wound care. Additionally, once she starts to have some improvement of swelling, a little bit of wrap in the form an Silvano bandage would be helpful to get to the underlying cause of these ulcers. HISTORY OF PRESENT ILLNESS: This is a 77-year-old woman with a history of congestive heart failure and venous insufficiency with bilateral venous stasis wounds and followed by the wound clinic. Because of increasing redness and swelling around the right leg wounds, she came to the hospital. She had a fever overnight. She had not felt fevers, chills, or sweats at home and her appetite has been okay. Here she has been on broad-spectrum antibiotics. Wound culture has been taken with results as discussed above. The blood cultures were sent and are pending. No growth to date. She has had no fever this morning and she feels well. She thinks the wounds look about the same. PAST MEDICAL HISTORY: 1. Ischemic cardiomyopathy. Last ejection fraction 20% to 25%. 2. Coronary artery disease and history of OH. 3. Atrial fibrillation. 4. History of ventricular tachycardia, status post biventricular pacemaker and ICD. 5. Chronic hypoxemic respiratory failure, on supplemental oxygen at home. 6. Hyperlipidemia. 7. History of TIA. 8. Peripheral vascular disease, mild by WILBER. MEDICATIONS: 1. Tylenol. 2. Apixaban. 3. Lipitor. 4. Cefepime 2 g every 12 hours. 5. Cholecalciferol. 6. Cyanocobalamin. 7. Lactulose. 8. Magnesium oxide. 9. Metoprolol. 10. Morphine as needed. 11. Zofran as needed. 12. Oxycodone tablet as needed. 13. Pantoprazole. 14. Potassium chloride. 15. Spironolactone. 16. Torsemide. 17. Vancomycin 750 mg every 12 hours. ALLERGIES: No known drug allergies. FAMILY HISTORY: Both parents but without medical problems. She thinks they of old age. SOCIAL HISTORY: She lives in [place] with her partner. She is a nonsmoker, not a drinker. She is retired. REVIEW OF SYSTEMS: All negative except as noted above to the 12-point review of systems. PHYSICAL EXAM: Vital Signs: Temperature 36.4, heart rate is 90, respiratory rate is 18, blood pressure 114/43, oxygen saturation 100% on 5 L by nasal cannula. General: She is awake, not in distress. Neurologic: She is oriented x3, follows all commands. Moves all extremities. Sensation is intact to light touch in both feet. HEENT: There is no conjunctival hemorrhage. Oropharynx without lesions. Neck: Neck is supple without mass. Heart is regular without murmurs, rubs, or gallops. Lungs are clear to auscultation bilaterally. Abdomen: Soft, nontender, nondistended. There are bowel sounds present. Skin: There is no rash or splinter hemorrhage. Musculoskeletal: There is no spinous tenderness to palpation. There is bilateral lower extremity edema, right greater than left. Right anterior medial and lateral legs, there are superficial purulent wounds with surrounding mild erythema and warmth. On the left leg, there is a small subcentimeter right medial leg ulcer without surrounding erythema. LABORATORY DATA: White blood cell count 4, hemoglobin 10.7, platelets 118, creatinine is 0.7, CRP was 22. Please see impression and recommendations outlined above. Thank you for asking me to see Ms. Bain in consultation. [id number]/[facility] #: [id number] MARISOL
[2018-12-25] MEDS: oxyCODONE SR TAB(*) 40 MG TAB.SR PO PRN ×2 (13:19→21:56)
--- NOTE | 2018-12-25 17:40 | PN ---
Subjective Date of Service: 12/25/18 Interval History: Patient seen and examined. Appears drowsy but replies appropriately. States she feels "ok". Denies SOB, no chest pain, no fevers or chills. States leg pain well controlled. Discussed POC, antibiotics and pending cultures. Objective Active Medications: Acetaminophen (Tylenol Tab*) 650 mg PO Q4H PRN PRN Reason: MILD PAIN or TEMP > 100.4 Albuterol (Ventolin 2.5 Mg/3 Ml Neb.Kayleen*) 2.5 mg INH [id number] AWAKE PRN PRN Reason: sob/wheezing Apixaban (Eliquis*) 5 mg PO BID COUNTS INCLUDE 234 BEDS AT THE [facility] Last Admin: 12/25/18 07:54 Dose: 5 mg Atorvastatin Calcium (Lipitor*) 10 mg PO BEDTIME COUNTS INCLUDE 234 BEDS AT THE [facility] Last Admin: 12/24/18 21:37 Dose: 10 mg Cholecalciferol (Vitamin D Tab*) 1,000 units PO BID COUNTS INCLUDE 234 BEDS AT THE [facility] Last Admin: 12/25/18 07:54 Dose: 1,000 units Cyanocobalamin (Vitamin B12 Tab*) 1,000 mcg PO DAILY COUNTS INCLUDE 234 BEDS AT THE [facility] Last Admin: 12/25/18 07:54 Dose: 1,000 mcg Cefepime HCl (Maxipime 2 Gm In Dextrose Duplex (*)) 2 gm in 50 mls @ 100 mls/ hr IV Q12H COUNTS INCLUDE 234 BEDS AT THE [facility] Last Admin: 12/25/18 12:00 Dose: 100 mls/hr Vancomycin HCl 750 mg/ Sodium (Chloride) 250 mls @ 166.667 mls/hr IVPB Q12H COUNTS INCLUDE 234 BEDS AT THE [facility] ; Protocol Last Admin: 12/25/18 13:12 Dose: 166.667 mls/hr Lactulose (Lactulose*) 15 ml PO BID PRN PRN Reason: CONSTIPATION Magnesium Oxide (Magox 400 Tab*) 400 mg PO BID COUNTS INCLUDE 234 BEDS AT THE [facility] Last Admin: 12/25/18 07:54 Dose: 400 mg Metoprolol Succinate (Toprol Xl Tab*) 25 mg PO DAILY COUNTS INCLUDE 234 BEDS AT THE [facility] Last Admin: 12/25/18 07:54 Dose: 25 mg Ondansetron HCl (Zofran Inj*) 4 mg IV Q4H PRN PRN Reason: NAUSEA/VOMITING Ondansetron HCl (Zofran Tab*) 4 mg PO QID PRN PRN Reason: NAUSEA Oxycodone HCl (Oxycontin(*)) 80 mg PO Q8HR PRN PRN Reason: PAIN - MODERATE Last Admin: 12/25/18 13:19 Dose: 80 mg Oxycodone HCl (Roxycodone Tab*) 20 mg PO QID PRN PRN Reason: PAIN - MODERATE Last Admin: 12/25/18 05:28 Dose: 20 mg Pantoprazole Sodium (Protonix Tab*) 40 mg PO DAILY COUNTS INCLUDE 234 BEDS AT THE [facility]; Protocol Last Admin: 12/25/18 07:54 Dose: 40 mg Pharmacy Consult (Vancomycin Per Pharmacy*) 1 note FOLLOW UP .VANC PER PHARMACY COUNTS INCLUDE 234 BEDS AT THE [facility]; Protocol Pharmacy Profile Note (Vancomycin Trough Check) 1 note FOLLOW UP 1130 ONE Stop: 12/26/18 11:31 Potassium Chloride (Klor Con Er Tab*) 20 meq PO TID COUNTS INCLUDE 234 BEDS AT THE [facility] Last Admin: 12/25/18 13:13 Dose: 20 meq Silver Sulfadiazine (Silvadine 1%*) 1 applic TOPICAL BID COUNTS INCLUDE 234 BEDS AT THE [facility] Last Admin: 12/25/18 07:55 Dose: 1 applic Spironolactone (Aldactone Tab*) 50 mg PO BID COUNTS INCLUDE 234 BEDS AT THE [facility] Last Admin: 12/25/18 07:54 Dose: 50 mg Torsemide (Demadex*) 20 mg PO BID COUNTS INCLUDE 234 BEDS AT THE [facility] Last Admin: 12/25/18 07:54 Dose: 20 mg Vital Signs - 8 hr 12/25/18 12/25/18 12/25/18 11:15 13:19 15:50 Temperature 98 F Pulse Rate 80 Respiratory 20 18 18 Rate Blood Pressure 114/54 (mmHg) O2 Sat by Pulse 100 Oximetry Oxygen Devices in Use Now: Nasal Cannula Appearance: drowsy, arounsable Eyes: PERRLA Ears/Nose/Mouth/Throat: Mucous Membranes Moist Neck: NL Appearance and Movements; NL JVP, Trachea Midline Respiratory: Symmetrical Chest Expansion and Respiratory Effort, Clear to Auscultation Cardiovascular: NL Sounds; No Murmurs; No JVD, RRR Abdominal: NL Sounds; No Tenderness; No Distention Extremities: - - bilateral LE edema and mottling, wounds wrapped, dressing CDI Neurological: Alert and Oriented x 3 Nutrition: Taking PO's Result Diagrams: 12/25/18 05:37 12/25/18 05:37 Microbiology and Other Data: Microbiology 12/24/18 14:50 Gram Stain - Final Leg Right Wound Culture - Preliminary Staphylococcus Aureus 12/24/18 11:45 Urine Culture - Final Urine No Growth (<1,000 CFU/mL) 12/24/18 11:35 Blood Culture - Preliminary Blood Venous No Growth Day 1 12/24/18 11:05 Aerobic Blood Culture - Preliminary Blood Venous No Growth Day 1 Anaerobic Blood Culture - Preliminary No Growth Day 1 Assess/Plan/Problems-Billing Assessment: This is a 77 year old female with history of chronic pain and chronic leg wounds and edema that presented to ED with complaints of weeping leg wounds and pain. - Patient Problems (1) Venous stasis ulcers of both lower extremities Code(s): I83.019 - VARICOSE VEINS OF RIGHT LOWER EXTREMITY W ULCER OF UNSP SITE ; I83.029 - VARICOSE VEINS OF LEFT LOWER EXTREMITY W ULCER OF UNSP SITE; L97.919 - NON-PRS CHRONIC ULC UNSP PRT OF R LOW LEG W UNSP SEVERITY; L97.929 - NON-PRS CHRONIC ULC UNSP PRT OF L LOW LEG W UNSP SEVERITY SNOMED Code(s): 743791622 Comment: - With cellulitis and chronic edema - ID consult appreciated - Follows outpatient with wound clinic, but has not been there since August - Pending wound cultures, continue vanco and cefepime then narrow coverage per ID recs - Does not appear septic - Per surgery, will need wraps and compression of lower extremities as tolerated - Continue torsemide (2) Chronic pain Code(s): G89.29 - OTHER CHRONIC PAIN SNOMED Code(s): 07521644 Comment: - On very high dose long and short acting oxycodone - Suggest patient follow with pain clinic as an outpatient after discharge - Monitor for sedation and hypoxia (3) Atrial fibrillation Code(s): I48.91 - UNSPECIFIED ATRIAL FIBRILLATION SNOMED Code(s): 40173142 Comment: - Rate controlled on metoprolol, continue eliquis (4) Chronic respiratory failure Code(s): J96.10 - CHRONIC RESPIRATORY FAILURE, UNSP W HYPOXIA OR HYPERCAPNIA SNOMED Code(s): 15818003 Comment: - Chronically on home O2 at 5-6LNC - Albuterol PRN (5) HTN (hypertension) Code(s): I10 - ESSENTIAL (PRIMARY) HYPERTENSION SNOMED Code(s): 95277548 Comment: - Continue lisinopril, metoprolol (6) DVT prophylaxis Code(s): RAJ9849 - SNOMED Code(s): 356877299 Comment: - On apixiban (7) Full code status Code(s): Z78.9 - OTHER SPECIFIED HEALTH STATUS SNOMED Code(s): 112647720 Status and Disposition: Inpatient for IV atbx. Dispo TBD.
[2018-12-25] MEDS: Atorvastatin* 10 MG TAB PO SCH (21:56)
[2018-12-26] MEDS: Vancomycin(*) 750 MG in NS 0.9% 250 ML* 250 ML IVPB SCH ×2 (00:13→13:02)
[2018-12-26] MEDS: Cyanocobalamin TAB* 500 MCG PO SCH (08:09)
[2018-12-26] MEDS: Potassium Chlor TAB* 20 MEQ TAB.ER PO SCH ×3 (08:09→20:33)
[2018-12-26] MEDS: Magnesium Oxide TAB* 400 MG PO SCH ×2 (08:10→20:33)
[2018-12-26] MEDS: Spironolactone TAB* 25 MG PO SCH ×3 (08:10→20:43)
[2018-12-26] MEDS: Pantoprazole TAB * 40 MG TAB PO SCH (08:10)
[2018-12-26] MEDS: Cholecalciferol TAB* 1000 UNITS PO SCH ×2 (08:10→20:33)
[2018-12-26] MEDS: Torsemide TAB* 20 MG PO SCH ×2 (08:10→20:43)
[2018-12-26] MEDS: Metoprolol Succinate XL TAB* 25 MG PO SCH (08:10)
[2018-12-26] MEDS: Apixaban* 5 MG TAB PO SCH ×2 (08:10→20:35)
[2018-12-26] MEDS: Silver Sulfadiazine 1%* 20 GM TOPICAL SCH ×2 (08:15→22:23)
--- NOTE | 2018-12-26 10:59 | PN ---
Subjective Date of Service: 12/26/18 Interval History: Ms. Bain reports that she feels great, denies complaint. She thinks that her legs are much less swollen, are much less red, and that the ulcerations are not any worse. Objective Active Medications: Acetaminophen (Tylenol Tab*) 650 mg PO Q4H PRN Albuterol (Ventolin 2.5 Mg/3 Ml Neb.Kayleen*) 2.5 mg INH [id number] AWAKE PRN Apixaban (Eliquis*) 5 mg PO BID [facility] Atorvastatin Calcium (Lipitor*) 10 mg PO BEDTIME [facility] Cholecalciferol (Vitamin D Tab*) 1,000 units PO BID [facility] Cyanocobalamin (Vitamin B12 Tab*) 1,000 mcg PO DAILY [facility] Cefepime HCl (Maxipime 2 Gm In Dextrose Duplex (*)) 2 gm in 50 mls @ 100 mls/ hr IV Q12H [facility] Vancomycin HCl 750 mg/ Sodium (Chloride) 250 mls @ 166.667 mls/hr IVPB Q12H [facility] ; Protocol Lactulose (Lactulose*) 15 ml PO BID PRN Magnesium Oxide (Magox 400 Tab*) 400 mg PO BID [facility] Metoprolol Succinate (Toprol Xl Tab*) 25 mg PO DAILY [facility] Ondansetron HCl (Zofran Inj*) 4 mg IV Q4H PRN Ondansetron HCl (Zofran Tab*) 4 mg PO QID PRN Oxycodone HCl (Oxycontin(*)) 80 mg PO Q8HR PRN Oxycodone HCl (Roxycodone Tab*) 20 mg PO QID PRN Pantoprazole Sodium (Protonix Tab*) 40 mg PO DAILY [facility]; Protocol Pharmacy Consult (Vancomycin Per Pharmacy*) 1 note FOLLOW UP .VANC PER PHARMACY [facility]; Protocol Pharmacy Profile Note (Vancomycin Trough Check) 1 note FOLLOW UP 1130 ONE Potassium Chloride (Klor Con Er Tab*) 20 meq PO TID [facility] Silver Sulfadiazine (Silvadine 1%*) 1 applic TOPICAL BID [facility] Spironolactone (Aldactone Tab*) 50 mg PO BID [facility] Torsemide (Demadex*) 20 mg PO BID [facility] Vital Signs: Temp Pulse Resp BP Pulse Ox 98.1 F 81 18 116/55 100 12/26/18 07:15 12/26/18 07:15 12/26/18 07:33 12/26/18 07:15 12/26/18 07:33 Oxygen Devices in Use Now: Nasal Cannula Appearance: Female lying in bed in NAD Eyes: No Scleral Icterus Ears/Nose/Mouth/Throat: Mucous Membranes Moist Respiratory: Symmetrical Chest Expansion and Respiratory Effort, Clear to Auscultation Cardiovascular: NL Sounds; No Murmurs; No JVD, - - Minimal edema Skin: - - Multiple ulcers to calves, right < left Neurological: Alert and Oriented x 3 Nutrition: Taking PO's Result Diagrams: 12/25/18 05:37 12/26/18 11:09 Microbiology and Other Data: Vital Signs: Temp Pulse Resp BP Pulse Ox 98.1 F 81 18 116/55 100 12/26/18 07:15 12/26/18 07:15 12/26/18 07:33 12/26/18 07:15 12/26/18 07:33 Assess/Plan/Problems-Billing Assessment: Ms. Bain is a 77 year old female with history of chronic pain and chronic leg wounds and edema that presented to ED with complaints of weeping leg wounds and pain. - Patient Problems (1) Venous stasis ulcers of both lower extremities SNOMED Code(s): 073143066 Comment: - With cellulitis and chronic edema - ID consult appreciated - Follows outpatient with wound clinic, but has not been there since August - Pending final wound cultures, thus far with preliminary results showing, continue vanco and cefepime then narrow coverage per ID recs - Does not appear septic - Per surgery, will need wraps and compression of lower extremities as tolerated - Continue torsemide (2) Ischemic cardiomyopathy Comment: - No evidence of acute exacerbation but of course contributes to edema and venous stasis ulcers - EF 20-25%, Mixed systolic and diastolic - Continue atorvastatin, metoprolol, spironolactone, torsemide (3) Chronic respiratory failure Comment: - Chronically on home O2 at 5-6LNC - Albuterol PRN (4) CAD (coronary artery disease) Comment: - Hx of MIs. - Cardiac Cath 2010 which showed no significant CAD. - Continue atorvastatin (5) HTN (hypertension) Comment: - BP well controlled - Continue spironolactone, metoprolol, torsemide (6) Atrial fibrillation Comment: - Rate controlled on metoprolol, continue eliquis (7) Ventricular tachyarrhythmia Comment: - Asympomatic, AICD (8) Chronic pain Comment: - On very high dose long and short acting oxycodone - Suggest patient follow with pain clinic as an outpatient after discharge - Monitor for sedation and hypoxia (9) DVT prophylaxis Comment: - Evelyn (10) Full code status Comment: Status and Disposition: Inpatient for IV atbx. Dispo TBD.
[2018-12-26] MEDS ORDERED: Vancomycin Trough Check NOTE FOLLOW UP ONE (11:30)
[2018-12-26 11:41] LABS: EGFR African American 89.3 (>60); EGFR Non-African American 73.8 (>60)
[2018-12-26] MEDS: Cefepime 2 GM in Dextrose(*) 2 GM/50 ML BAG IV SCH ×2 (11:50→23:38)
[2018-12-26 12:02] LABS: Vancomycin Trough 22.7 mcg/mL
[2018-12-26] MEDS: oxyCODONE SR TAB(*) 40 MG TAB.SR PO PRN (13:58)
[2018-12-26] MEDS: Vancomycin(*) 500 MG in NS 0.9% 250 ML* 250 ML IVPB SCH (18:22)
[2018-12-26] MEDS: Atorvastatin* 10 MG TAB PO SCH (20:35)
[2018-12-26] MEDS: oxyCODONE TAB* 5 MG TAB PO PRN (20:38)
[2018-12-27] MEDS: oxyCODONE SR TAB(*) 40 MG TAB.SR PO PRN ×3 (02:00→23:15)
[2018-12-27] MEDS: oxyCODONE TAB* 5 MG TAB PO PRN ×2 (05:25→12:13)
[2018-12-27] MEDS: Spironolactone TAB* 25 MG PO SCH ×2 (05:25→17:53)
[2018-12-27] MEDS: Torsemide TAB* 20 MG PO SCH ×2 (05:25→17:53)
[2018-12-27] MEDS: Vancomycin(*) 500 MG in NS 0.9% 250 ML* 250 ML IVPB SCH ×2 (05:29→17:53)
[2018-12-27] MEDS: Pantoprazole TAB * 40 MG TAB PO SCH (08:20)
[2018-12-27] MEDS: Magnesium Oxide TAB* 400 MG PO SCH ×2 (08:20→20:05)
[2018-12-27] MEDS: Cholecalciferol TAB* 1000 UNITS PO SCH ×2 (08:20→20:05)
[2018-12-27] MEDS: Cyanocobalamin TAB* 500 MCG PO SCH (08:20)
[2018-12-27] MEDS: Metoprolol Succinate XL TAB* 25 MG PO SCH (08:20)
[2018-12-27] MEDS: Apixaban* 5 MG TAB PO SCH ×2 (08:20→20:05)
[2018-12-27] MEDS: Potassium Chlor TAB* 20 MEQ TAB.ER PO SCH ×3 (08:20→20:05)
--- NOTE | 2018-12-27 09:34 | PN ---
Subjective Date of Service: 12/27/18 Interval History: Ms. Bain reports that she is feeling well today. She denies complaint. She is concerned about going home "too soon" and wants to make sure that her legs are healed before discharge. She confirms that she and her would be able to apply the dressings and RAQUEL bandages at home. She will also be following with [facility]. Objective Active Medications: Acetaminophen (Tylenol Tab*) 650 mg PO Q4H PRN Albuterol (Ventolin 2.5 Mg/3 Ml Neb.Kayleen*) 2.5 mg INH [id number] AWAKE PRN Apixaban (Eliquis*) 5 mg PO BID [facility] Atorvastatin Calcium (Lipitor*) 10 mg PO BEDTIME [facility] Cholecalciferol (Vitamin D Tab*) 1,000 units PO BID [facility] Cyanocobalamin (Vitamin B12 Tab*) 1,000 mcg PO DAILY [facility] Cefepime HCl (Maxipime 2 Gm In Dextrose Duplex (*)) 2 gm in 50 mls @ 100 mls/ hr IV Q12H [facility] Vancomycin HCl 500 mg/ Sodium (Chloride) 250 mls @ 166.667 mls/hr IVPB Q12H [facility] Lactulose (Lactulose*) 15 ml PO BID PRN Magnesium Oxide (Magox 400 Tab*) 400 mg PO BID [facility] Metoprolol Succinate (Toprol Xl Tab*) 25 mg PO DAILY [facility] Ondansetron HCl (Zofran Inj*) 4 mg IV Q4H PRN Ondansetron HCl (Zofran Tab*) 4 mg PO QID PRN Oxycodone HCl (Oxycontin(*)) 80 mg PO Q8HR PRN Oxycodone HCl (Roxycodone Tab*) 20 mg PO QID PRN Pantoprazole Sodium (Protonix Tab*) 40 mg PO DAILY [facility]; Protocol Pharmacy Consult (Vancomycin Per Pharmacy*) 1 note FOLLOW UP .VANC PER PHARMACY [facility]; Protocol Pharmacy Profile Note (Vancomycin Trough Check) 1 note FOLLOW UP 0530 ONE Potassium Chloride (Klor Con Er Tab*) 20 meq PO TID [facility] Silver Sulfadiazine (Silvadine 1%*) 1 applic TOPICAL BID [facility] Spironolactone (Aldactone Tab*) 50 mg PO 0600,1800 [facility] Torsemide (Demadex*) 20 mg PO 0600,1800 [facility] Vital Signs: Temp Pulse Resp BP Pulse Ox 97.9 F 81 18 102/39 99 12/27/18 07:45 12/27/18 07:45 12/27/18 08:26 12/27/18 07:45 12/27/18 07:45 Oxygen Devices in Use Now: Nasal Cannula Appearance: Female sitting up in chair in NAD Respiratory: Symmetrical Chest Expansion and Respiratory Effort, Clear to Auscultation Cardiovascular: NL Sounds; No Murmurs; No JVD, No Edema Extremities: No Edema Skin: - - Significant decrease in edema, multiple ulcerations are dry and healing well Neurological: Alert and Oriented x 3, NL Muscle Strength and Tone Lines/Tubes/Other Access: Clean, Dry and Intact Endotracheal Tube Nutrition: Taking PO's Result Diagrams: 12/25/18 05:37 12/26/18 11:09 Microbiology and Other Data: . Assess/Plan/Problems-Billing Assessment: Ms. Bain is a 77 year old female with history of chronic pain and chronic leg wounds and edema that presented to ED with complaints of weeping leg wounds and pain. - Patient Problems (1) Venous stasis ulcers of both lower extremities SNOMED Code(s): 636142907 Comment: - Slowly improving. - With cellulitis and chronic edema - ID consult appreciated. Culture now shows MRSA today, switch from cefazolin to vancomycin. Anticipate could switch to oral agent as early as tomorrow - Follows outpatient with wound clinic, but has not been there since August - Per surgery, will need wraps and compression of lower extremities as tolerated - Continue torsemide (2) Ischemic cardiomyopathy Comment: - Edema much improved with elevation and wraps - No evidence of acute exacerbation but of course contributes to edema and venous stasis ulcers - EF 20-25%, Mixed systolic and diastolic - Continue atorvastatin, metoprolol, spironolactone, torsemide (3) Chronic respiratory failure Comment: - Chronically on home O2 at 5-6LNC - Albuterol PRN (4) CAD (coronary artery disease) Comment: - Hx of MIs. - Cardiac Cath 2010 which showed no significant CAD. - Continue atorvastatin (5) HTN (hypertension) Comment: - BP well controlled - Continue spironolactone, metoprolol, torsemide (6) Atrial fibrillation Comment: - Rate controlled on metoprolol, continue eliquis (7) Ventricular tachyarrhythmia Comment: - Asympomatic, AICD (8) Chronic pain Comment: - On very high dose long and short acting oxycodone - Suggest patient follow with pain clinic as an outpatient after discharge - Monitor for sedation and hypoxia (9) DVT prophylaxis Comment: - Evelyn (10) Full code status Comment: Status and Disposition: Inpatient for IV atbx. Dispo TBD.
[2018-12-27] MEDS ORDERED: ceFAZolin* 2 GM in NS 100 MLS Q8H (Pharmacy Admix) IVPB SCH (11:30)
[2018-12-27] MEDS ORDERED: ceFAZolin 2 GM PREMIX 2 GM/50 ML BAG IVPB SCH (11:30)
[2018-12-27] MEDS: Silver Sulfadiazine 1%* 20 GM TOPICAL SCH ×2 (12:30→20:06)
[2018-12-27] MEDS ORDERED: Vancomycin per Pharmacy* NOTE FOLLOW UP SCH (15:00)
[2018-12-27] MEDS: Atorvastatin* 10 MG TAB PO SCH (20:05)
[2018-12-28] MEDS: oxyCODONE TAB* 5 MG TAB PO PRN (03:31)
[2018-12-28] MEDS ORDERED: Vancomycin Trough Check NOTE FOLLOW UP ONE (05:30)
[2018-12-28] MEDS ORDERED: Vancomycin Random Level* NOTE FOLLOW UP ONE (05:30)
[2018-12-28] MEDS: Vancomycin(*) 500 MG in NS 0.9% 250 ML* 250 ML IVPB SCH (07:20)
[2018-12-28] MEDS: Spironolactone TAB* 25 MG PO SCH (07:20)
[2018-12-28] MEDS: Torsemide TAB* 20 MG PO SCH (07:20)
[2018-12-28] MEDS: Apixaban* 5 MG TAB PO SCH (08:40)
[2018-12-28] MEDS: Magnesium Oxide TAB* 400 MG PO SCH (08:41)
[2018-12-28] MEDS: Pantoprazole TAB * 40 MG TAB PO SCH (08:41)
[2018-12-28] MEDS: Metoprolol Succinate XL TAB* 25 MG PO SCH (08:42)
[2018-12-28] MEDS: Cyanocobalamin TAB* 500 MCG PO SCH (08:42)
[2018-12-28] MEDS: Cholecalciferol TAB* 1000 UNITS PO SCH (08:42)
[2018-12-28] MEDS: Potassium Chlor TAB* 20 MEQ TAB.ER PO SCH ×2 (08:43→13:20)
[2018-12-28] MEDS: Silver Sulfadiazine 1%* 20 GM TOPICAL SCH (08:54)
--- NOTE | 2018-12-28 12:15 | PN ---
Progress Note - Progress Note Date of Service: 12/28/18 SOAP: Subjective: Pt comfortable in chair, reports feeling well, "dressings were changed this morning, I'm going home" [] Objective: Vital Signs Temp 97.6 F 12/28/18 06:17 Pulse 80 12/28/18 06:17 Resp 20 12/28/18 06:17 BP 110/48 12/28/18 06:17 Pulse Ox 98 12/28/18 06:17 Intake & Output 12/27/18 12/28/18 12/28/18 18:59 06:59 18:59 Intake Total 1215 270 120 Balance 1215 270 120 Intake: IV Fluids 55 20 NS 55 20 IVPB 360 250 cefazolin 105 vancomycin 255 250 Oral 800 0 120 Other: Estimated Void Medium # Bowel Movements 0 # Voids 1 3 PEX: B/L Lower extremeties charmaine over kerlex dressings C/D/I sensation intact B/L feet, [] Assessment: 78 yo female with PMH B/L lower extremity chronic venous insufficiency, multiple ulcers, cellulitis, now + MRSA [] Plan: Patient to be d/c'd today on oral ABX, needs aggresive F/U with wound clinic. []
[2018-12-28] MEDS: oxyCODONE SR TAB(*) 40 MG TAB.SR PO PRN (13:20)
[2018-12-28 14:46] VITALS: BP 105/50
--- NOTE | 2018-12-29 02:12 | DS ---
CC: Dr. Edge * DISCHARGE SUMMARY: DATE OF ADMISSION: 12/24/18 DATE OF DISCHARGE: 12/28/18 ATTENDING PHYSICIAN WHILE IN THE HOSPITAL: Dr. Jackie Wolff * (dictated by UYEN Yee). PRIMARY CARE PROVIDER: Dr. Edge. PRIMARY DIAGNOSIS: Bilateral lower extremity cellulitis, methicillin-resistant Staphylococcus aureus positive. SECONDARY DIAGNOSES: 1. Coronary artery disease, status post 3 myocardial infarctions. 2. Chronic atrial fibrillation, on Eliquis. 3. History of ventricular tachycardia, status post left ventricular pacemaker and AICD . 4. Ischemic cardiomyopathy, ejection fraction of 20% to 25%. 5. Chronic hypoxemic respiratory failure, on 6 L of oxygen secondary to cardiomyopathy. 6. Hyperlipidemia. 7. Transient ischemic attack. 8. Peripheral vascular disease. HISTORY OF PRESENT ILLNESS/HOSPITAL COURSE: Felicia Bain is a 78-year-old white female with past medical history significant for coronary artery disease, peripheral vascular disease, and atrial fibrillation, who presented to the emergency department due to lower extremity pain on 12/24/18. Please see admitting history and physical written by Dr. Saman Landis for further details. The patient was found to have bilateral lower extremity erythema surrounding the wounds in her lower extremity, which are likely secondary to venous stasis. The patient was initially started on vancomycin and cefepime. Ultimately, her wounds were found to be MRSA positive and vancomycin was continued. Infectious Disease was involved in her care and . There was a wound consult to general surgery team, who recommended close followup with Wound Care as outpatient; however, they did not believe she had any need for surgical debridement during this hospital stay. They recommended compression, elevation, as well as local wound care. The patient progressed well during her hospital stay and responded well to vancomycin. She initially had a fever of 101.3 and was afebrile for the rest of her hospital stay. Ultimately, she was having good improvement and was ready for discharge on the day of discharge. The patient had no complaints and feeling afebrile and felt she and her partner will be able to help wrap her feet and lower extremities with Silvano wraps. This case was discussed with Infectious Disease who agrees with the decision on the patient for p.o. doxycycline at discharge. PHYSICAL EXAMINATION: General: Elderly white female, sitting on the hospital chair, appearing comfortable, in no acute distress. Eyes: PERRL. Sclerae anicteric. ENT: Mucous membranes moist. Lungs: Clear to auscultation throughout. Cardio: Regular rate and rhythm without murmurs, rubs, or gallops. Abdomen: Soft, nontender, nondistended. Extremities: No clubbing, cyanosis, or edema. Neuro: The patient is alert and oriented x3. No focal deficits. Able to move all extremities. Skin: Shows ulcerations approximately 1 to 2 cm in diameter on calves bilaterally. No streaking. Surrounding erythema, which is below the knee. DISCHARGE PLAN: Diet: Heart healthy diet. Activity: The patient may return to regular activity as tolerated. The patient advised to elevate her legs throughout the day as well as use Silvano wraps during the day. The patient should follow up with her primary care provider within 1 week to ensure that she has understanding about the treatment. She needs close followup at the wound care office, and if her primary care provider can ensure this, it would be of much to the patient. She is setup with visiting nurses coming to her home. The patient was advised to take her antibiotics to completion. The patient is advised to return to the emergency department if she is experiencing fever, chills, streaking up her legs, worsening erythema. DISCHARGE MEDICATIONS: New medications: Doxycycline 100 mg p.o. b.i.d. x12 days. Continued home medications: 1. Vitamin B12 1000 mcg p.o. daily. 2. Nexium 40 mg p.o. daily. 3. Vitamin D 1000 units p.o. daily. 4. Diclofenac gel 1 application topically b.i.d. 5. Zofran 4 mg p.o. q.i.d. p.r.n. nausea. 6. Prednisone 5 to 10 mg p.o. b.i.d. moderate pain. 7. Torsemide 40 mg p.o. b.i.d. 8. Lipitor 10 mg p.o. at bedtime. 9. Oxycodone 80 mg p.o. q.8 hours p.r.n. pain. 10. Potassium chloride 20 mEq p.o. t.i.d. 11. Hydrocortisone 1 application topically b.i.d. 12. Spironolactone 50 mg p.o. b.i.d. 13. Magnesium oxide 40 mg p.o. b.i.d. 14. Oxycodone 10 mg p.o. q.i.d. p.r.n. pain. 15. Lactulose 15 mg p.o. b.i.d. p.r.n. constipation. 16. Eliquis 10 mg p.o. b.i.d. 17. Metoprolol succinate 25 mg p.o. daily. 18. Silver sulfadiazine 1 application topically b.i.d. CONDITION ON DISCHARGE: Stable. DISPOSITION: Home. TIME SPENT: Approximately 35 minutes was spent on this discharge, approximately half this time was spent at bedside evaluating the patient and discussing the plan of care. UYEN YEE [id number]/[facility] #: [id number] MTDD
== END 2018-12-28 13:30 | disposition home health service (06) | DRG 603 ==
LOC: ED 10:35 → MED 14:02
PROVIDERS: ADMIT Internal Medicine; ATTEND Hospitalist
DX: L03.116 Cellulitis of left lower limb (principal); J96.11 Chronic respiratory failure with hypoxia; I47.2 Ventricular tachycardia; I48.20 Chronic atrial fibrillation, unspecified; L97.929 Non-pressure chronic ulcer of unspecified part of left lower leg with unspecified severity; L97.919 Non-pressure chronic ulcer of unspecified part of right lower leg with unspecified severity; L03.115 Cellulitis of right lower limb; I73.9 Peripheral vascular disease, unspecified; I11.0 Hypertensive heart disease with heart failure; I50.9 Heart failure, unspecified; B95.62 Methicillin resistant Staphylococcus aureus infection as the cause of diseases classified elsewhere; I87.8 Other specified disorders of veins; J44.9 Chronic obstructive pulmonary disease, unspecified; I25.10 Atherosclerotic heart disease of native coronary artery without angina pectoris; I25.5 Ischemic cardiomyopathy; E78.5 Hyperlipidemia, unspecified; G89.29 Other chronic pain; Z99.81 Dependence on supplemental oxygen; Z95.810 Presence of automatic (implantable) cardiac defibrillator; Z86.73 Personal history of transient ischemic attack (TIA), and cerebral infarction without residual deficits; I25.2 Old myocardial infarction; Z79.01 Long term (current) use of anticoagulants; Z79.891 Long term (current) use of opiate analgesic; Z79.52 Long term (current) use of systemic steroids; Z79.899 Other long term (current) drug therapy; Z88.8 Allergy status to other drugs, medicaments and biological substances; Z91.048 Other nonmedicinal substance allergy status
CPT/HCPCS: 36415; 71045; 80048; 80053; 80202; 81003; 81015; 82565; 83605; 83735; 83880; 84100; 84484; 84520; 85025; 85610; 85652; 85730; 86140; 87040; 87070; 87077; 87086; 87186; 87205; 93005; 96365; 96366; 99284; A9270-GY; G8978-GP-CJ; G8979-GP-CI; J0690; J0692; J2270; J2405; J3370

== ENCOUNTER 2019-02-01 22:27 | Emergency (ER) | payer MEDICARE, OTHER ==
--- NOTE | 2019-02-01 23:00 | ED ---
Abdominal Pain/Female - HPI Summary HPI Summary: Patient complains of right lower quadrant pain 3 days, worse today. Pain described as constant with spikes, worse with eating in bowel movement. Current pain rated 7/10. At worst 8/10. Denies fever, cough, sore throat, CP, SOB, N/V/D, change in urine, change in BM or vaginal symptoms. Patient on Eliquis. Medical history is pacemaker, CHF, ascites, CAD, A. fib, HTN, TIA. - History of Current Complaint Chief Complaint: EDAbdPain Stated Complaint: ABD PAIN PER EMS Time Seen by Provider: 02/01/19 22:56 Hx Obtained From: Patient Hx Last Menstrual Period: NA Onset/Duration: Gradual Onset, Lasting Days Timing: Constant Severity Initially: Severe Severity Currently: Severe Pain Intensity: 8 Pain Scale Used: 0-10 Numeric Location: Discrete At: RLQ Radiates: No Character: Dull, Cramping Aggravating Factor(s): Food, Movement Alleviating Factor(s): Nothing Associated Signs and Symptoms: Positive: Decreased Appetite Allergies/Adverse Reactions: Allergies Allergy/AdvReac Type Severity Reaction Status Date / Time Adhesive Tape Allergy itchiness Verified 02/01/19 22:30 heparin Allergy Hives Verified 02/01/19 22:30 PACEMAKER -NO MRIs Allergy PACEMAKER Uncoded 02/01/19 22:30 -NO MRIs PMH/Surg Hx/FS Hx/Imm Hx Endocrine/Hematology History: Reports: Hx Anticoagulant Therapy - Coumadin, Hx Thyroid Disease - hypothyroidism Denies: Hx Diabetes Cardiovascular History: Reports: Hx Auto Implanted Cardiovert Defib - AICD, Hx Congestive Heart Failure - CHRONIC, Hx Coronary Artery Disease, Hx Embolism, Hx Hypercholesterolemia, Hx Hypertension, Hx Pacemaker/ICD, Other Cardiovascular Problems/Disorders - NON ISCHEMIC CARDIOMYOPATHY Respiratory History: Denies: Hx Asthma, Hx Chronic Obstructive Pulmonary Disease (COPD), Other Respiratory Problems/Disorders - HOME O2 - 6L for heart condition, no pulm GI History: Reports: Hx Gall Bladder Disease, Hx Gastroesophageal Reflux Disease , Hx Ulcer - bleeding, Other GI Disorders - PUD History: Denies: Hx Renal Disease Musculoskeletal History: Reports: Hx Arthritis, Hx Back Problems, Hx Scoliosis - rods in back, Other Musculoskeletal History - chronic pain, back, hips, knees - takes OxyContin Sensory History: Reports: Hx Contacts or Glasses, Other Sensory Impairments - dentures Denies: Hx Hearing Aid Opthamlomology History: Reports: Hx Contacts or Glasses, Other Sensory Impairments - dentures Neurological History: Reports: Hx Migraine, Hx Transient Ischemic Attacks (TIA) , Other Neuro Impairments/Disorders - PAIN CLINIC PT. - Surgical History Surgery Procedure, Year, and Place: APR 16, 2011 ICD PACER. gallbladder removed 1999. 12 rods placed in back ~10 years ago. hysterectomy - Immunization History Date of Influenza Vaccine: 11/2018 Infectious Disease History: No Infectious Disease History: Reports: Hx of Known/Suspected MRSA Denies: Hx Hepatitis, History Other Infectious Disease, Traveled Outside the [place] in Last 30 Days - Family History Known Family History: Positive: Cardiac Disease - Social History Alcohol Use: None Hx Substance Use: No Substance Use Type: Reports: None Hx Tobacco Use: No Smoking Status (MU): Never Smoked Tobacco Review of Systems Constitutional: Negative Eyes: Negative ENT: Negative Cardiovascular: Negative Respiratory: Negative Positive: Abdominal Pain Genitourinary: Negative Musculoskeletal: Negative Skin: Negative Neurological: Negative Psychological: Normal All Other Systems Reviewed And Are Negative: Yes Physical Exam - Summary Physical Exam Summary: Diffuse abdominal tenderness. Triage Information Reviewed: Yes Vital Signs On Initial Exam: Initial Vitals Temp Pulse Resp BP Pulse Ox 97.8 F 85 18 139/94 99 02/01/19 22:28 02/01/19 22:28 02/01/19 22:28 02/01/19 22:28 02/01/19 22:28 Vital Signs Reviewed: Yes Appearance: Positive: Well-Appearing Skin: Positive: Warm Head/Face: Positive: Normal Head/Face Inspection Eyes: Positive: Normal Neck: Positive: Supple Respiratory/Lung Sounds: Positive: Clear to Auscultation Cardiovascular: Positive: Normal Abdomen Description: Positive: Other: Musculoskeletal: Positive: Normal Neurological: Positive: Normal Psychiatric: Positive: Normal AVPU Assessment: Alert - Hazel Coma Scale Best Eye Response: 4 - Spontaneous Best Motor Response: 6 - Obeys Commands Best Verbal Response: 5 - Oriented Coma Scale Total: 15 Procedures - Sedation Patient Received Moderate/Deep Sedation with Procedure: No Diagnostics - Vital Signs Vital Signs Temp Pulse Resp BP Pulse Ox 02/01/19 22:28 97.8 F 85 18 139/94 99 - Laboratory Result Diagrams: 02/01/19 23:18 02/01/19 23:18 Lab Statement: Any lab studies that have been ordered have been reviewed, and results considered in the medical decision making process. Abdominal Pain Fem Course/Dx - Course Course Of Treatment: Patient complains of right lower quadrant pain 3 days, worse today. Pain described as constant with spikes, worse with eating in bowel movement. Current pain rated 7/10. At worst 8/10. Denies fever, cough, sore throat, CP, SOB, N/V/D, change in urine, change in BM or vaginal symptoms. Patient on Eliquis. Medical history is pacemaker, CHF, ascites, CAD, A. fib, HTN, TIA. Vital signs within normal limits. WBC 2.8. History of low BBC. Alkaline phosphatase 111. Labs otherwise patient baseline. Ultrasound gallbladder positive for cirrhosis. CT abdomen and pelvis positive for CHF, small to moderate ascites. Patient advised to follow-up with primary care. - Diagnoses Provider Diagnoses: Abdominal pain, Ascites Discharge ED - Sign-Out/Discharge Documenting (check all that apply): Patient Departure - Discharge Plan Condition: Stable Disposition: HOME Patient Education Materials: Acute Abdominal Pain (ED), Ascites (ED) Referrals: Gregory Edge MD [Primary Care Provider] - Additional Instructions: Follow-up with primary care Dr Edge to arrange for further evaluation of ascites. Return to the ED for any new or worsening symptoms. - Billing Disposition and Condition Condition: STABLE Disposition: Home
[2019-02-01 23:48] LABS: Albumin 3.1 g/dL (3.2-5.2); Albumin/Globulin Ratio 0.7 (1-3); BUN/Creatinine Ratio 16.5 (8-20); C Reactive Protein 7.41 mg/L (<8.01); Calcium 8.9 mg/dL (8.6-10.3); EGFR African American 78.5 (>60); EGFR Non-African American 64.9 (>60); Globulin 4.6 g/dL (2-4); Potassium 3.6 mmol/L (3.5-5.0); Total Bilirubin 0.6 mg/dL (0.2-1.0); Total Protein 7.7 g/dL (6.4-8.9)
[2019-02-01 23:51] LABS: ABS Eosinophils 0.1 10^3/ul (0-0.6); ABS Lymphocytes 0.5 10^3/ul (1.0-4.8); ABS Monocytes 0.3 10^3/ul (0-0.8); ABS Neutrophils 1.9 10^3/ul (1.5-7.7); Eosinophil % 2.7 %; Hematocrit 31 % (35-47); Hemoglobin 10.2 g/dL (12.0-16.0); Lymphocyte % 16.9 %; Mean Corpuscular HGB Conc 33 g/dL (31-36); Mean Corpuscular Hemoglobin 31 pg (27-31); Mean Corpuscular Volume 93 fL (80-97); Red Blood Count 3.34 10^6 /uL (3.70-4.87); Red Cell Distribution Width 16 % (10-15); White Blood Count 2.8 10^3/uL (3.5-10.8)
[2019-02-02] MEDS ORDERED: Iodixanol* (CONTRAST) 320 MG/ML 100 ML SDV IV ONE (00:10)
[2019-02-02] MEDS ORDERED: oxyCODONE TAB* 5 MG TAB PO ONE (01:15)
[2019-02-02] MEDS ORDERED: Morphine 4 MG/ML VIAL (1 ml) 4 MG/ML VIAL IV ONE (01:18)
[2019-02-02 01:34] LABS: Mean Platelet Volume 8.3 fL (7.4-10.4); Platelet Count 97 10^3/uL (150-450)
[2019-02-02 02:02] LABS: Activated Partial Thrombo Time 35.7 seconds (26.0-38.0); INR 1.45 (0.82-1.09)
[2019-02-02 02:39] VITALS: BP 148/75
[2019-02-02] MEDS ORDERED: oxyCODONE SR TAB(*) 40 MG TAB.SR PO ONE ×2 (06:50→07:00)
== END 2019-02-02 07:52 | disposition home or self-care (01) ==
LOC: ED 22:27
DX: R10.31 Right lower quadrant pain (principal); R18.8 Other ascites; I50.9 Heart failure, unspecified; N28.1 Cyst of kidney, acquired; K74.60 Unspecified cirrhosis of liver; K76.6 Portal hypertension; Z95.810 Presence of automatic (implantable) cardiac defibrillator; Z79.01 Long term (current) use of anticoagulants; Z99.81 Dependence on supplemental oxygen; Z88.8 Allergy status to other drugs, medicaments and biological substances; Z91.048 Other nonmedicinal substance allergy status
CPT/HCPCS: 36415; 74177; 76705; 80053; 83605; 83690; 85025; 85610; 85730; 86140; 96374; 99283; A9270-GY; J2270; Q9967

== ENCOUNTER 2019-04-16 10:32 | Inpatient (IN) | payer MEDICARE, OTHER ==
[2019-04-16] MEDS ORDERED: NS 0.9% 1000 ML** 1,000 ML IV ONE (10:51)
[2019-04-16] MEDS ORDERED: Vancomycin(*) 1,000 MG in NS 0.9% 250 ML* 250 ML IV ONE (10:54)
--- NOTE | 2019-04-16 10:54 | ED ---
Skin Complaint - HPI Summary HPI Summary: Patient is a 78 y/o F presenting to [facility] via EMS for BLE cellulitis. Multiple open areas noted, EMS state they were most concerned with the right leg and note the patient had her right leg in a plastic bag to contain drainage from her leg. Patient states that she is being followed by [facility] [place] and that her last appointment was 2.5 weeks ago. She states that she first noted open areas 1.5 weeks ago. Patient was supposed to have an appointment with wound clinic today but she cancelled the appointment. Tenderness to palpation of BLE noted. Patient denies fever, CP, SOB, and abdominal pain. EMS report that the patient is on multiple antibiotics. Patient ambulates at baseline and is on 5 L o2 at home. Home medications and allergies are reviewed. - History of Current Complaint Stated Complaint: CELLULITS/WEEPING LEGS PER EMS Hx Obtained From: Patient Hx Last Menstrual Period: NA Onset/Duration: Started Weeks Ago, Still Present Skin Exposure Onset/Duration: Weeks Ago Timing: Constant, Lasting Weeks Pain Scale Used: 0-10 Numeric Skin Location: Leg - BLE Character: Pain, Redness, Painful Associated Signs & Symptoms: Drainage - Additional Pertinent History Primary Care Physician: SHA - Allergy/Home Medications Allergies/Adverse Reactions: Allergies Allergy/AdvReac Type Severity Reaction Status Date / Time PACEMAKER -NO MRIs Allergy PACEMAKER Uncoded 02/01/19 22:30 -NO MRIs Home Medications: Home Medications Oxycodone HCl [Oxycontin 80 mg] 80 mg PO TID PRN 04/16/19 [History Confirmed ] Silver Sulfadiazine 1%* [SILVadine 1%*] 1 applic TOPICAL BID 04/16/19 [History Confirmed 04/16/19] Tobramycin 0.3% OPHTH.ESTELITA* 1 drop BOTH EYES QID 04/16/19 [History Confirmed ] PMH/Surg Hx/FS Hx/Imm Hx Endocrine/Hematology History: Reports: Hx Anticoagulant Therapy - Coumadin, Hx Thyroid Disease - hypothyroidism Denies: Hx Diabetes Cardiovascular History: Reports: Hx Auto Implanted Cardiovert Defib - AICD, Hx Congestive Heart Failure - CHRONIC, Hx Coronary Artery Disease, Hx Embolism, Hx Hypercholesterolemia, Hx Hypertension, Hx Pacemaker/ICD, Other Cardiovascular Problems/Disorders - NON ISCHEMIC CARDIOMYOPATHY Respiratory History: Denies: Hx Asthma, Hx Chronic Obstructive Pulmonary Disease (COPD), Other Respiratory Problems/Disorders - HOME O2 - 6L for heart condition, no pulm GI History: Reports: Hx Gall Bladder Disease, Hx Gastroesophageal Reflux Disease , Hx Ulcer - bleeding, Other GI Disorders - PUD History: Denies: Hx Renal Disease Musculoskeletal History: Reports: Hx Arthritis, Hx Back Problems, Hx Scoliosis - rods in back, Other Musculoskeletal History - chronic pain, back, hips, knees - takes OxyContin Sensory History: Reports: Hx Contacts or Glasses, Other Sensory Impairments - dentures Denies: Hx Hearing Aid Opthamlomology History: Reports: Hx Contacts or Glasses, Other Sensory Impairments - dentures Neurological History: Reports: Hx Migraine, Hx Transient Ischemic Attacks (TIA) , Other Neuro Impairments/Disorders - PAIN CLINIC PT. - Surgical History Surgery Procedure, Year, and Place: APR 16, 2011 ICD PACER. gallbladder removed 1999. 12 rods placed in back ~10 years ago. hysterectomy - Immunization History Date of Influenza Vaccine: 11/2018 Infectious Disease History: Reports: Hx of Known/Suspected MRSA Denies: Hx Hepatitis, History Other Infectious Disease - Family History Known Family History: Positive: Cardiac Disease - Social History Alcohol Use: None Hx Substance Use: No Substance Use Type: Reports: None Hx Tobacco Use: No Smoking Status (MU): Never Smoked Tobacco Review of Systems Negative: Fever Negative: Chest Pain Negative: Shortness Of Breath Negative: Abdominal Pain Skin: Other - positive - BLE cellulitis; erythema, tenderness, drainage of BLE All Other Systems Reviewed And Are Negative: Yes Physical Exam - Summary Physical Exam Summary: Constitutional: Well-developed, Well-nourished, Alert. (-) Distressed Skin: BLE erythema and tenderness, BLE with numerous open wounds, more extensively at the right leg. Serosanguineous discharge from open wounds noted. HENT: Normocephalic; Atraumatic Eyes: Conjunctiva normal Neck: Musculoskeletal ROM normal neck. (-) JVD, (-) Stridor, (-) Tracheal deviation Cardio: Rhythm regular, rate normal, Heart sounds normal; Intact distal pulses; The pedal pulses are 2+ and symmetric. Radial pulses are 2+ and symmetric. (-) Murmur Pulmonary/Chest wall: Effort normal. (-) Respiratory distress, (-) Wheezes, (-) Rales Abd: Soft, (-) tenderness, (-) Distension, (-) Guarding, (-) Rebound Musculoskeletal: (-) Edema Lymph: (-) Cervical adenopathy Neuro: Alert, Oriented x3 Psych: Mood and affect Normal Triage Information Reviewed: Yes Vital Signs Reviewed: Yes Procedures - Sedation Patient Received Moderate/Deep Sedation with Procedure: No Diagnostics - Laboratory Result Diagrams: 04/16/19 11:09 04/16/19 11:09 Lab Statement: Any lab studies that have been ordered have been reviewed, and results considered in the medical decision making process. Course/Dx - Course Course Of Treatment: Patient is a 78 y/o F presenting to [facility] via EMS for BLE cellulitis. Multiple open areas noted, EMS state they were most concerned with the right leg and note the patient had her right leg in a plastic bag to contain drainage from her leg. Patient states that she is being followed by [facility] [place] and that her last appointment was 2.5 weeks ago. She states that she first noted open areas 1.5 weeks ago. Patient was supposed to have an appointment with wound clinic today but she cancelled the appointment. Tenderness to palpation of BLE noted. Patient denies fever, CP, SOB, and abdominal pain. EMS report that the patient is on multiple antibiotics. Patient ambulates at baseline and is on 5 L o2 at home. On physical exam, BLE erythema and tenderness, BLE with numerous open wounds, more extensively at the right leg. Serosanguineous discharge from open wounds noted. Bloodwork was obtained, abnormal values include RBC 3.58, Hgb 10.6, Hct 33, RDW 18, plt count 146, INR 1.67, sodium 133, BUN/creatinine 25, glucose 138, total bilirubin 1.3, alk phos 121, CRP 99.14, globulin 5, albumin/globulin 0.6. During ED course, patient received cefazolin sodium 1 gm in sodium chloride 50 mls @ 200 mls/hr IVPB, vancomycin HCl 1000 mg, 250 mls @ 166.667 mlhs/hr IV, and fluids. Wound care consult ordered. 1141 - Patient's case was discussed with Dr. Farooq, Dr. Farooq will evaluate and consult on patient. 1204 - Dr. Farooq evaluated the patient and accepts the patient for admission. - Diagnoses Provider Diagnoses: Bilateral lower leg cellulitis, Ulcers of both lower legs - Physician Notifications Discussed Care Of Patient With: Gifty Farooq Time Discussed With Above Provider: 11:41 Instructed by Provider To: Other - 1141 - Patient's case was discussed with Dr. Farooq, Dr. Farooq will evaluate and consult on patient. 1204 - Dr. Farooq evaluated the patient and accepts the patient for admission. Discharge ED - Sign-Out/Discharge Documenting (check all that apply): Patient Departure - admit - Discharge Plan Condition: Stable Disposition: ADMITTED TO [facility] - Billing Disposition and Condition Condition: STABLE Disposition: Admitted to [facility] - Attestation Statements Document Initiated by Scribe: Yes Documenting Scribe: GIA REID Provider For Whom Scribe is Documenting (Include Credential): GILLIAN BLAKE DO Scribe Attestation: GIA Mitchell scribed for GILLIAN BLAKE DO on 04/16/19 at 1410. Scribe Documentation Reviewed: Yes Provider Attestation: The documentation as recorded by the GIA olivier accurately reflects the service I personally performed and the decisions made by GILLIAN mae DO Status of Scribe Document: Viewed
[2019-04-16] MEDS ORDERED: ceFAZolin 1 GM ADVAN(*) 1 GM in NS 0.9% 50 ML* 50 ML IVPB ONE (10:57)
[2019-04-16 11:18] LABS: ABS Eosinophils 0.1 10^3/ul (0-0.6); ABS Lymphocytes 0.3 10^3/ul (1.0-4.8); ABS Monocytes 0.5 10^3/ul (0-0.8); ABS Neutrophils 4.7 10^3/ul (1.5-7.7); Eosinophil % 1.1 %; Hematocrit 33 % (35-47); Hemoglobin 10.6 g/dL (12.0-16.0); Lymphocyte % 6.2 %; Mean Corpuscular HGB Conc 32 g/dL (31-36); Mean Corpuscular Hemoglobin 30 pg (27-31); Mean Corpuscular Volume 92 fL (80-97); Mean Platelet Volume 7.8 fL (7.4-10.4); Platelet Count 146 10^3/uL (150-450); Red Blood Count 3.58 10^6 /uL (3.70-4.87); Red Cell Distribution Width 18 % (10-15); White Blood Count 5.6 10^3/uL (3.5-10.8)
[2019-04-16 11:27] LABS: INR 1.67 (0.82-1.09)
[2019-04-16 11:52] LABS: Albumin 3.2 g/dL (3.2-5.2); Calcium 8.7 mg/dL (8.6-10.3); Potassium 3.9 mmol/L (3.5-5.0); Total Bilirubin 1.3 mg/dL (0.2-1.0)
[2019-04-16 11:58] LABS: Albumin/Globulin Ratio 0.6 (1-3); C Reactive Protein 99.14 mg/L (<8.01); EGFR Non-African American 78.5 (>60); Total Protein 8.2 g/dL (6.4-8.9)
[2019-04-16] MEDS ORDERED: Ondansetron INJ* 2 MG/ML VIAL IV ONE (12:00)
[2019-04-16] MEDS ORDERED: Morphine 4 MG/ML VIAL (1 ml) 4 MG/ML VIAL IV ONE ×2 (12:00→13:21)
[2019-04-16] MEDS ORDERED: Torsemide TAB* 20 MG PO PRN (12:19)
[2019-04-16] MEDS ORDERED: Acetaminophen TAB* 325 MG PO PRN (12:26)
--- NOTE | 2019-04-16 13:51 | HP ---
CC: Dr. Edge; Dr. Ponce; Dr. Torres, Surgery; Dr. Jovany Orta * HISTORY AND PHYSICAL: DATE OF ADMISSION: 04/16/19 PRIMARY CARE PROVIDER: Dr. Edge. CHIEF COMPLAINT: Leg pain and wounds. HISTORY OF PRESENT ILLNESS: Felicia Bain is a 78-year-old female with history of venous stasis ulcers of bilateral lower extremities, who stated that for the past couple of months they have gotten worse. She was on Bactrim and doxycycline courses at the beginning of the of 2019. Despite that, she continues to have bleeding and extensive leg wounds mostly on the right distal lower extremity. She stated that although she is instructed to have her bilateral legs elevated, it is difficult for her to do so at home. The patient is going to be admitted with diagnosis of extensive leg wounds. PAST MEDICAL HISTORY: 1. Carotid disease with multiple MIs in the past. 2. Chronic atrial fibrillation, currently in paced rhythm, on Eliquis. 3. History of ventricular tachycardia, status post biventricular pacer placement and then AICD. 4. Ischemic cardiomyopathy with EF of 20% to 25%. 5. Chronic hypoxemic respiratory failure, on 6 L of oxygen continuously. 6. Dyslipidemia. 7. TIA. 8. Peripheral vascular disease with last documented ABIs from [place], ankle index of 1.03 and lactate 0.96. 9. On chronic steroids for osteoarthritis. MEDICATIONS AT HOME: Include: 1. Prednisone 10 mg daily. 2. Vitamin B12 1000 mcg daily. 3. Vitamin D3 1000 units b.i.d. 4. Torsemide 20 mg b.i.d. p.r.n. 5. Potassium chloride 20 mEq 3 times a day. 6. Atorvastatin 10 mg at bedtime. 7. OxyContin 80 mg up to 3 times a day. 8. Oxycodone 20 mg up to 4 times a day p.r.n. 9. Aldactone 50 mg b.i.d. 10. Hydrocortisone cream on a p.r.n. basis. 11. Silvadene cream b.i.d. to open areas of bilateral lower extremities. 12. Toprol-XL 25 mg daily. 13. Eliquis 5 mg b.i.d. 14. Tobramycin to both eyes 4 times a day. 15. Voltaren gel topically p.r.n. b.i.d. ALLERGIES: No known drug allergies. FAMILY HISTORY: Both parents of "old age." SOCIAL HISTORY: The patient denies tobacco, alcohol, or drug use. She lives with her boyfriend. 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 As her surrogate, she named her daughter, Sheridan Cartwright. REVIEW OF SYSTEMS: Please see history of present illness. Positive for extreme pain in bilateral lower extremities. Positive for extensive wounds of bilateral lower extremities that have been chronic, but worse in the past month. Negative for fevers. All the remaining 12 systems were reviewed with the patient and were otherwise negative. PHYSICAL EXAMINATION GENERAL: The patient is a pleasant 78-year-old female who is in no acute distress. The patient is alert and oriented x3. VITAL SIGNS: Blood pressure 117/95, heart rate of 80 and regular, respiratory rate 17, oxygen saturation 95% on 6 L of oxygen via nasal cannula, temperature of 97.5. HEENT: Head: Atraumatic, normocephalic. Eyes: Pupils are equal, reactive to light and accommodation. Oropharynx is clear. Mucosa moist. NECK: Supple. No JVD. No bruits bilaterally. RESPIRATORY: Clear to auscultation bilaterally. CARDIOVASCULAR: Regular rate and rhythm. No murmur. ABDOMEN: Soft, nontender. Bowel sounds are present in all 4 quadrants. EXTREMITIES: There is hardening and chronic discoloration of skin of bilateral lower extremities from the level of bilateral feet to the level of the bilateral knees. The skin is thick, hardened with chronic appearing purple discoloration. There is nonpitting pedal edema at +1 bilaterally. The right lower extremity has multiple superficial ulcerations overlying the entire area from just above the right ankle to just below the right knee. The ulcers are multiple, covering almost the entire surface of the above mentioned area. They are shallow with exposed subcutaneous tissue and muscle. No exposed tendons. Those shallow ulcerations are bleeding. There is no noted purulent discharge. On the left lower extremity, the patient has a couple of small bleeding ulcerations also. She has also noted peripheral pulses in bilateral lower extremities and the feet are not palpable. The patient has slightly delayed capillary refill in bilateral lower extremities. Neuro Evaluation: Cranial nerves II through XII grossly intact. Motor strength is 5/5 bilaterally. DIAGNOSTIC STUDIES/LAB DATA: White blood cell count of 7.6, hemoglobin 10.6, hematocrit 33, and platelets 146. The patient's basic metabolic panel is pending at the time of dictation. Please note that the patient's wound cultures were positive for MRSA in the past. ASSESSMENT AND PLAN: 1. The patient has extensive bilateral lower extremity wounds, right much more extensive than left, due to venous stasis. The patient is advised to have her legs elevated. She is going to be admitted to the hospital. She clearly cannot and is not able to manage her wounds at home. Her distal right lower extremity basically appears to be "skinned." At this point, I will ask Dr. Torres from General Surgery to see the patient in consultation in regards of advice for wound care. The patient is also asked to have her legs elevated at all times and this patient is ambulating. At this point, the patient's wounds do not appear to be readily infected, but I will place the patient on coverage with p.o. doxycycline. Of note, she received IV vancomycin at admission. 2. In regards of the patient's congestive heart failure, the patient is going to be continued with her outpatient diuretics including torsemide and Aldactone. 3. The patient is on chronic prednisone for osteoarthritis, which is going to be continued at 10 mg. 4. The patient has history of chronic hypoxemic respiratory failure with oxygen requirements at 6 L, which is unchanged. 5. The patient has history of atrial fibrillation. Currently, she is in paced rhythm. We will continue the patient's metoprolol as well as Eliquis. 6. For DVT prophylaxis, the patient is going to be continued on Eliquis. 7. The patient's code status is full. Her surrogate is her daughter. TIME SPENT: Approximately 65 minutes was spent on admission of this patient, more than half that time was spent [id number] with the patient during the interview and physical exam. [id number]/[facility] #: [id number] MARISOL
[2019-04-16] MEDS: oxyCODONE TAB* 5 MG TAB PO PRN (14:20)
[2019-04-16] MEDS: Potassium Chlor TAB* 20 MEQ TAB.ER PO SCH ×2 (16:15→21:21)
--- NOTE | 2019-04-16 17:29 | CONSULT ---
Subjective Date of Service: 04/16/19 Interval History: Ms. Najera a 78 yo female with PMH significant for CAD, C A fib, hx v tach , ischemic cardiomyopathy, chronic hypoxic respiratory failure, HLD, TIA, PVD, venous insufficiency, and osteoarthritis; who presented to the emergency room with complaints of worsening LE wounds. She was admitted for worsening LE wounds. She presented to the hospital with known venous stasis ulcer, but with worsening of wounds. She has been being followed by the wound clinic since January for the wounds on the LEs. She reports increased drainage from the right LE and has been wrapping the leg with plastic wrap to help manage the drainage. She follows with the [facility]. Patient seen and examined at bedside. Verbal consent for wound consult and photograph. Family History: Unchanged from Admission Social History: Unchanged from Admission Past Medical History: Unchanged from Admission Review of Systems - Measurements Intake and Output: Intake and Output Last 24 Hours 04/14/19 04/15/19 04/16/19 04/17/19 06:59 06:59 06:59 06:59 Intake Total 50 Balance 50 Weight 145 lb Intake: IV Fluids 50 - Review of Systems Constitutional Symptoms: Negative: Fever, Other - Chills Dermatology: Positive: Other - Wounds to bilateral legs Cardiology: Positive: Peripheral Vascular Dis Endocrinology: Negative: Diabetes Mellitus Objective Active Medications: Acetaminophen (Tylenol Tab*) 650 mg PO Q4H PRN Reason: PAIN-MILD/TEMP >/= 100.4 Apixaban (Eliquis*) 5 mg PO BID GABRIELLA Atorvastatin Calcium (Lipitor*) 10 mg PO BEDTIME GABRIELLA Cyanocobalamin (Vitamin B12 Tab*) 1,000 mcg PO DAILY GABRIELLA Doxycycline Hyclate (Vibramycin Cap(*)) 100 mg PO BID GABRIELLA Sodium Chloride (Ns 0.9% 1000 Ml) 1,000 mls @ 125 mls/hr IV ED ONCE ONE Stop: 04/16/19 18:50 Metoprolol Succinate (Toprol Xl Tab*) 25 mg PO DAILY GABRIELLA Oxycodone HCl (Roxycodone Tab*) 20 mg PO QID PRN Reason: PAIN - MODERATE Oxycodone HCl (Oxycontin(*)) 80 mg PO Q12HR GABRIELLA Potassium Chloride (Klor Con Er Tab*) 20 meq PO TID GABRIELLA Prednisone (Deltasone 5 Mg Tab) 10 mg PO BID PRN Reason: leg pain Spironolactone (Aldactone Tab*) 50 mg PO BID GABRIELLA Torsemide (Demadex*) 20 mg PO BID PRN Reason: fluid retention Vital Signs 04/16/19 04/16/19 14:20 15:05 Temperature 97.4 F Pulse Rate 84 Respiratory 22 23 Rate Blood Pressure 124/67 (mmHg) O2 Sat by Pulse 100 Oximetry Appearance: NAD, sitting up in bed Ears/Nose/Mouth/Throat: Mucous Membranes Moist Respiratory: Symmetrical Chest Expansion and Respiratory Effort Extremities: - - Bilateral LE edema, unable to palpate bilateral DP or PT pulses Skin: - - See skin note below Neurological: Alert and Oriented x 3 Result Diagrams: 04/17/19 06:17 04/17/19 06:17 Additional Lab and Data: Above labs were pulled into the note, when the note was edited prior to signing. See below for labs from the day of consultation. Laboratory Tests 04/16/19 04/16/19 11:09 11:09 WBC 5.6 Hgb 10.6 L Hct 33 L Plt Count 146 L Sodium 133 L Potassium 3.9 Chloride 101 Carbon Dioxide 27 BUN 18 Creatinine 0.72 Glucose 138 H Total Protein 8.2 Albumin 3.2 Microbiology and Other Data: Microbiology 04/16/19 10:48 Skin and Soft Tissue MRSA/MSSA (PCR - Final Leg Right Mrsa Positive S.aureus Positive Gram Stain - Final Diagnostic Imagin. Exam Date: 01/21/19 - VL ANK/BRACHIAL INDICES Ankle-brachial index on the right is 1.07. Ankle-brachial index on the left is 0.99. Findings are similar to that identified on . Doppler interrogation demonstrates triphasic waveform in the right posterior tibial artery and monophasic waveform in the right dorsalis pedis artery. Triphasic waveform is noted in the left posterior tibial artery and biphasic waveform is noted in the left dorsalis pedis artery. IMPRESSION: Ankle-brachial index on the right of 1.07 in the left is 0.99. Findings are similar to that identified on December 25, 2017. Skin Deviation Note - Skin Deviation Findings Left medial lower leg - There is a small cluster of superficial open areas, measures 1.5 cm x 1.5 cm x 0.1 cm. The wound bases are red granulation tissue. There is serous drainage. There are also several areas of dry crust and dark discolorations, the skin is intact over the areas of dark discoloration. The skin is dry with slight erythema. Left lateral lower leg - There are several areas of dark discolored skin, the skin is intact over these areas. The skin is dry with slight erythema. Right medial leg - There clusters of superficial open areas, total height measures 13 cm x most of the circumference of the leg x 0.1 cm. The wound bases are red granulation tissue. There is a moderate amount of serous drainage. The surrounding skin is intact, but dry. There are several areas of dark discoloration, but the skin is intact over these areas. Right anterior leg - There is a cluster of superficial open areas, measures 8.5 cm x 7.5 cm x 0.1 cm. The wound bases are red granulation tissue. There is a moderate amount of serous drainage. The surrounding skin is intact, but dry. There are several areas of dark discoloration, but the skin is intact over these areas. No odor. The leg is cool to touch. Right lateral/posterior lower leg - There is a cluster of superficial open areas , measures 9 cm x 8 cm x 0.1 cm. The wound bases are red granulation tissue. There is a moderate amount of serous drainage. The surrounding skin is intact, but dry. There are several areas of dark discoloration, but the skin is intact over these areas. Posterior right lower leg - Areas of dark discoloration, no open areas. Wound Problem/Plan Assessment: Ms. Najera a 78 yo female with PMH significant for CAD, C A fib, hx v tach , ischemic cardiomyopathy, chronic hypoxic respiratory failure, HLD, TIA, PVD, venous insufficiency, and osteoarthritis; who presented to the emergency room with complaints of worsening lower extremity wounds. She was admitted for LE wounds. She presented to the hospital with known venous stasis ulcer, but with worsening of wounds. 1. Right LE wounds, venous ulcers with moisture associated skin damage. Previous ABIs mostly unremarkable. Wound culture PCR + for MRSA, suspect this likely represents colonization, the wounds do not appear to be grossly infected at this time. Wash with soap and water, apply Acticoat Flex 7 to the open and weeping areas, followed by ABD pads, and rolled gauze. Leave the Acticoat Flex [address] for 7 days, may change the ABD pads and rolled gauze as needed for drainage. Keep legs elevated. Unable to palpate pulses, recommend obtaining updated ABIs. 2. Left LE wounds, venous ulcers. Previous ABIs unremarkable. Wash with soap and water, apply Acticoat Flex 7 to the open area, followed by Optilock, and rolled gauze. Leave the DSG in place for 7 days, may change the outer DSG as needed for drainage. Keep legs elevated. Unable to palpate pulses, recommend obtaining updated ABIs. 3. Venous insufficiency with hx venous ulcers and venous dermatitis. 4. Chronic A fib. Is on Eliquis. This may affect wound healing. 5. Suspected malnutrition. Recommend obtaining prealbumin. 6. Nutrition. Recommend maintaining nutrition requirements to assist with wound healing (Protein 1.3-1.5 grams/kg per day and Calories 30-35 kcal/kg per day). Heart Healthy diet. 7. Code Status. Full Code. 8. Disposition. Inpatient, disposition per primary medicine team. TIME SPENT: Time for this wound consultation was 35 minutes and 25 minute was spent with the patient discussing past medical history; assessing, measuring, and photographing the wounds, applying new DSGs. Is Patient a Wound Clinic Patient: Yes - last visit 03/29/19 Current Treatment: Right leg AG collagen and unna boot. Left leg commpression sock Attending: Amrita Ruiz
[2019-04-16] MEDS: DOXYcycline CAP(*) 100 MG PO SCH (21:21)
[2019-04-16] MEDS: Atorvastatin* 10 MG TAB PO SCH (21:21)
[2019-04-16] MEDS: Spironolactone TAB* 25 MG PO SCH (21:21)
[2019-04-16] MEDS: oxyCODONE SR TAB(*) 40 MG TAB.SR PO SCH (21:22)
[2019-04-16] MEDS: Apixaban* 5 MG TAB PO SCH (21:22)
[2019-04-17 06:33] LABS: ABS Lymphocytes 0.4 10^3/ul (1.0-4.8); ABS Monocytes 0.4 10^3/ul (0-0.8); ABS Neutrophils 2.3 10^3/ul (1.5-7.7); Eosinophil % 0.8 %; Hematocrit 29 % (35-47); Hemoglobin 9.4 g/dL (12.0-16.0); Lymphocyte % 11.7 %; Mean Corpuscular HGB Conc 33 g/dL (31-36); Mean Corpuscular Hemoglobin 30 pg (27-31); Mean Corpuscular Volume 92 fL (80-97); Mean Platelet Volume 7.9 fL (7.4-10.4); Nucleated Red Blood Cells % 0.1; Platelet Count 121 10^3/uL (150-450); Red Blood Count 3.16 10^6 /uL (3.70-4.87); Red Cell Distribution Width 18 % (10-15); White Blood Count 3.1 10^3/uL (3.5-10.8)
[2019-04-17 06:45] LABS: Calcium 8.1 mg/dL (8.6-10.3); Potassium 4.9 mmol/L (3.5-5.0)
[2019-04-17 06:51] LABS: BUN/Creatinine Ratio 27.4 (8-20); EGFR African American 93.5 (>60); EGFR Non-African American 77.3 (>60)
[2019-04-17] MEDS: Apixaban* 5 MG TAB PO SCH ×2 (10:43→21:25)
[2019-04-17] MEDS: Metoprolol Succinate XL TAB* 25 MG PO SCH (10:43)
[2019-04-17] MEDS: Potassium Chlor TAB* 20 MEQ TAB.ER PO SCH ×3 (10:43→21:25)
[2019-04-17] MEDS: DOXYcycline CAP(*) 100 MG PO SCH ×2 (10:43→21:25)
[2019-04-17] MEDS: Spironolactone TAB* 25 MG PO SCH ×2 (10:43→21:25)
[2019-04-17] MEDS: Cyanocobalamin TAB* 500 MCG PO SCH (10:44)
[2019-04-17] MEDS: oxyCODONE SR TAB(*) 40 MG TAB.SR PO SCH ×2 (10:44→21:25)
--- NOTE | 2019-04-17 11:08 | PN ---
Subjective Date of Service: 04/17/19 Interval History: Feeling okay today. Pain is a little better than yesterday. I discussed her care with her nurse, who just changed the dressing and reports no concerns. Family History: Unchanged from Admission Social History: Unchanged from Admission Past Medical History: Unchanged from Admission Objective Active Medications: Acetaminophen (Tylenol Tab*) 650 mg PO Q4H PRN PRN Reason: PAIN-MILD/TEMP >/= 100.4 Last Admin: 04/16/19 16:15 Dose: 650 mg Apixaban (Eliquis*) 5 mg PO BID [facility] Last Admin: 04/17/19 10:43 Dose: 5 mg Atorvastatin Calcium (Lipitor*) 10 mg PO BEDTIME [facility] Last Admin: 04/16/19 21:21 Dose: 10 mg Cyanocobalamin (Vitamin B12 Tab*) 1,000 mcg PO DAILY [facility] Last Admin: 04/17/19 10:44 Dose: 1,000 mcg Doxycycline Hyclate (Vibramycin Cap(*)) 100 mg PO BID [facility] Last Admin: 04/17/19 10:43 Dose: 100 mg Metoprolol Succinate (Toprol Xl Tab*) 25 mg PO DAILY [facility] Last Admin: 04/17/19 10:43 Dose: 25 mg Oxycodone HCl (Roxycodone Tab*) 20 mg PO QID PRN PRN Reason: PAIN - MODERATE Last Admin: 04/16/19 14:20 Dose: 20 mg Oxycodone HCl (Oxycontin(*)) 80 mg PO Q12HR [facility] Last Admin: 04/17/19 10:44 Dose: 80 mg Potassium Chloride (Klor Con Er Tab*) 20 meq PO TID [facility] Last Admin: 04/17/19 10:43 Dose: 20 meq Prednisone (Deltasone 5 Mg Tab) 10 mg PO BID PRN PRN Reason: leg pain Last Admin: 04/16/19 16:15 Dose: 10 mg Spironolactone (Aldactone Tab*) 50 mg PO BID [facility] Last Admin: 04/17/19 10:43 Dose: 50 mg Torsemide (Demadex*) 20 mg PO BID PRN PRN Reason: fluid retention Vital Signs - 8 hr 04/17/19 04/17/19 04/17/19 07:35 08:05 10:44 Temperature 97.9 F Pulse Rate 81 Respiratory 16 20 16 Rate Blood Pressure 116/68 (mmHg) O2 Sat by Pulse 100 Oximetry Oxygen Devices in Use Now: Nasal Cannula Appearance: alert, well appearing Eyes: No Scleral Icterus Ears/Nose/Mouth/Throat: NL Teeth, Lips, Gums Cardiovascular: - - systolic murmur throughout, PMI is hyperdynamic, varicosities over chest Abdominal: - - umbilical hernia Lymphatic: No Cervical Adenopathy Extremities: - - dressings not removed; venous stasis changes seen on feet and superior to dressings, feet are warm, sensation is in tact. DP pulses are weak. Neurological: Alert and Oriented x 3 Result Diagrams: 04/17/19 06:17 04/17/19 06:17 Microbiology and Other Data: Microbiology 04/16/19 10:48 Skin and Soft Tissue MRSA/MSSA (PCR - Final Leg Right Mrsa Positive S.aureus Positive Gram Stain - Final Assess/Plan/Problems-Billing Assessment: This is a 78 year old woman with history of PAD, CAD, ischemic cardiomyopathy who presented to the ED on 04/16 with worsening pain and leg wounds. - Patient Problems (1) Venous stasis ulcers of both lower extremities Current Visit: No Status: Acute Code(s): I83.019 - VARICOSE VEINS OF RIGHT LOWER EXTREMITY W ULCER OF UNSP SITE; I83.029 - VARICOSE VEINS OF LEFT LOWER EXTREMITY W ULCER OF UNSP SITE; L97.919 - NON-PRS CHRONIC ULC UNSP PRT OF R LOW LEG W UNSP SEVERITY; L97.929 - NON-PRS CHRONIC ULC UNSP PRT OF L LOW LEG W UNSP SEVERITY SNOMED Code(s): 129462380 Comment: Unable to manage at home Appreciate wound care consult and recommendations (2) Arthritis Current Visit: No Status: Acute Code(s): M19.90 - UNSPECIFIED OSTEOARTHRITIS , UNSPECIFIED SITE SNOMED Code(s): 8266338 Comment: she is on chronic steroids for unclear reasons (3) CAD (coronary artery disease) Current Visit: No Status: Acute Code(s): I25.10 - ATHSCL HEART DISEASE OF [place] CORONARY ARTERY W/O ANG PCTRS SNOMED Code(s): 26020753 Comment: with history of multiple MIs continue ASA, statin (4) Chronic pain Current Visit: No Status: Acute Code(s): G89.29 - OTHER CHRONIC PAIN SNOMED Code(s): 17916890 Comment: On very high dose long and short acting oxycodone No evidence of adverse side effect (5) DVT prophylaxis Current Visit: No Status: Acute Code(s): WER2828 - SNOMED Code(s): 165490051 Comment: [place] (6) Atrial fibrillation Current Visit: No Status: Chronic Code(s): I48.91 - UNSPECIFIED ATRIAL FIBRILLATION SNOMED Code(s): 82479210 Comment: Rate controlled on metoprolol, continue eliquis
[2019-04-17] MEDS: oxyCODONE TAB* 5 MG TAB PO PRN (13:35)
[2019-04-17] MEDS: Atorvastatin* 10 MG TAB PO SCH (21:25)
[2019-04-18 06:15] LABS: ABS Eosinophils 0.1 10^3/ul (0-0.6); ABS Lymphocytes 0.6 10^3/ul (1.0-4.8); ABS Monocytes 0.5 10^3/ul (0-0.8); ABS Neutrophils 3.4 10^3/ul (1.5-7.7); Eosinophil % 1.4 %; Hematocrit 34 % (35-47); Hemoglobin 11.1 g/dL (12.0-16.0); Lymphocyte % 12.8 %; Mean Corpuscular HGB Conc 32 g/dL (31-36); Mean Corpuscular Hemoglobin 30 pg (27-31); Mean Corpuscular Volume 93 fL (80-97); Nucleated Red Blood Cells % 0.1; Platelet Count 172 10^3/uL (150-450); Red Blood Count 3.72 10^6 /uL (3.70-4.87); Red Cell Distribution Width 18 % (10-15); White Blood Count 4.6 10^3/uL (3.5-10.8)
[2019-04-18 06:19] LABS: INR 2.96 (0.82-1.09)
[2019-04-18 06:30] LABS: Calcium 8.8 mg/dL (8.6-10.3)
[2019-04-18 06:36] LABS: BUN/Creatinine Ratio 26.3 (8-20); C Reactive Protein 85.97 mg/L (<8.01); EGFR African American 84.2 (>60); EGFR Non-African American 69.6 (>60)
[2019-04-18 06:40] LABS: Potassium 6.1 mmol/L (3.5-5.0)
[2019-04-18] MEDS: oxyCODONE TAB* 5 MG TAB PO PRN (06:41)
[2019-04-18] MEDS ORDERED: Sodium Polystyrene ORAL.SOL* 15 GM/60 ML BTL PO ONE ×2 (06:45→16:00)
[2019-04-18] MEDS: DOXYcycline CAP(*) 100 MG PO SCH ×2 (07:55→22:41)
[2019-04-18] MEDS: Cyanocobalamin TAB* 500 MCG PO SCH (07:55)
[2019-04-18] MEDS: Apixaban* 5 MG TAB PO SCH ×2 (07:56→22:41)
[2019-04-18 07:58] LABS: Calcium 8.3 mg/dL (8.6-10.3)
[2019-04-18] MEDS: Metoprolol Succinate XL TAB* 25 MG PO SCH (08:02)
[2019-04-18 08:04] LABS: BUN/Creatinine Ratio 26.9 (8-20); EGFR African American 86.7 (>60); EGFR Non-African American 71.6 (>60)
[2019-04-18 08:09] LABS: Potassium 5.8 mmol/L (3.5-5.0)
--- NOTE | 2019-04-18 08:32 | PN ---
Subjective Date of Service: 04/18/19 Interval History: No overnight issues. Dressings were changed at 4am. No complaints, she feels well today. Family History: Unchanged from Admission Social History: Unchanged from Admission Past Medical History: Unchanged from Admission Objective Active Medications: Acetaminophen (Tylenol Tab*) 650 mg PO Q4H PRN PRN Reason: PAIN-MILD/TEMP >/= 100.4 Last Admin: 04/16/19 16:15 Dose: 650 mg Apixaban (Eliquis*) 5 mg PO BID [facility]PL[facility] Last Admin: 04/18/19 07:56 Dose: 5 mg Atorvastatin Calcium (Lipitor*) 10 mg PO BEDTIME REPLACED BY [facility] Last Admin: 04/17/19 21:25 Dose: 10 mg Cyanocobalamin (Vitamin B12 Tab*) 1,000 mcg PO DAILY [facility] Last Admin: 04/18/19 07:55 Dose: 1,000 mcg Doxycycline Hyclate (Vibramycin Cap(*)) 100 mg PO BID [facility]PL[facility] Last Admin: 04/18/19 07:55 Dose: 100 mg Metoprolol Succinate (Toprol Xl Tab*) 25 mg PO DAILY [facility] Last Admin: 04/18/19 08:02 Dose: 25 mg Oxycodone HCl (Roxycodone Tab*) 20 mg PO QID PRN PRN Reason: PAIN - MODERATE Last Admin: 04/18/19 06:41 Dose: 20 mg Oxycodone HCl (Oxycontin(*)) 80 mg PO Q12HR [facility]PLACED [facility] Last Admin: 04/17/19 21:25 Dose: 80 mg Prednisone (Deltasone 5 Mg Tab) 10 mg PO BID PRN PRN Reason: leg pain Last Admin: 04/16/19 16:15 Dose: 10 mg Torsemide (Demadex*) 20 mg PO BID PRN PRN Reason: fluid retention Vital Signs - 8 hr 04/18/19 04/18/19 04/18/19 03:42 06:41 08:01 Temperature 98.8 F 98.3 F Pulse Rate 80 80 Respiratory 24 16 16 Rate Blood Pressure 132/57 120/46 (mmHg) O2 Sat by Pulse 100 100 Oximetry 04/18/19 04/18/19 08:03 08:15 Temperature Pulse Rate Respiratory 16 16 Rate Blood Pressure (mmHg) O2 Sat by Pulse Oximetry Oxygen Devices in Use Now: None Appearance: alert, pale, no distress, sitting up in the chair Eyes: No Scleral Icterus Ears/Nose/Mouth/Throat: NL Teeth, Lips, Gums Neck: NL Appearance and Movements; NL JVP Respiratory: Symmetrical Chest Expansion and Respiratory Effort Cardiovascular: - - AICD right chest wall, varicosities on chest, systolic murmur throughout, PMI hyperdynamic Lymphatic: No Cervical Adenopathy Extremities: - - legs are dressed, distal skin is purple, warm, sensation is in tact Result Diagrams: 04/18/19 05:52 04/18/19 07:40 Additional Lab and Data: Above labs were pulled into the note, when the note was edited prior to signing. See below for labs from the day of consultation. Laboratory Tests 04/16/19 04/16/19 11:09 11:09 WBC 5.6 Hgb 10.6 L Hct 33 L Plt Count 146 L Sodium 133 L Potassium 3.9 Chloride 101 Carbon Dioxide 27 BUN 18 Creatinine 0.72 Glucose 138 H Total Protein 8.2 Albumin 3.2 Microbiology and Other Data: Microbiology 04/16/19 10:48 Skin and Soft Tissue MRSA/MSSA (PCR - Final Leg Right Mrsa Positive S.aureus Positive Gram Stain - Final Diagnostic Imagin. Exam Date: 01/21/19 - VL ANK/BRACHIAL INDICES Ankle-brachial index on the right is 1.07. Ankle-brachial index on the left is 0.99. Findings are similar to that identified on . Doppler interrogation demonstrates triphasic waveform in the right posterior tibial artery and monophasic waveform in the right dorsalis pedis artery. Triphasic waveform is noted in the left posterior tibial artery and biphasic waveform is noted in the left dorsalis pedis artery. IMPRESSION: Ankle-brachial index on the right of 1.07 in the left is 0.99. Findings are similar to that identified on December 25, 2017. Assess/Plan/Problems-Billing Assessment: This is a 78 year old woman with history of PAD, CAD, ischemic cardiomyopathy who presented to the ED on 04/16 with worsening pain and leg wounds. - Patient Problems (1) Hyperkalemia Current Visit: Yes Status: Acute Code(s): E87.5 - HYPERKALEMIA SNOMED Code (s): 96016115 Comment: likely related to spironolactone + supplemental K+ --> both held today ekg okay but v-paced start tele kayelexate repeat again this morning (2) Venous stasis ulcers of both lower extremities Current Visit: No Status: Acute Code(s): I83.019 - VARICOSE VEINS OF RIGHT LOWER EXTREMITY W ULCER OF UNSP SITE; I83.029 - VARICOSE VEINS OF LEFT LOWER EXTREMITY W ULCER OF UNSP SITE; L97.919 - NON-PRS CHRONIC ULC UNSP PRT OF R LOW LEG W UNSP SEVERITY; L97.929 - NON-PRS CHRONIC ULC UNSP PRT OF L LOW LEG W UNSP SEVERITY SNOMED Code(s): 685078544 Comment: Unable to manage at home Appreciate wound care consult and recommendations doxycycline day 3 for presumed cellulitis (3) Arthritis Current Visit: No Status: Acute Code(s): M19.90 - UNSPECIFIED OSTEOARTHRITIS , UNSPECIFIED SITE SNOMED Code(s): 5303315 Comment: she is on chronic steroids for unclear reasons this is worsening her potential for wound healing (4) CAD (coronary artery disease) Current Visit: No Status: Acute Code(s): I25.10 - ATHSCL HEART DISEASE OF [place] CORONARY ARTERY W/O ANG PCTRS SNOMED Code(s): 19268543 Comment: with history of multiple MIs continue statin, no asa due to anticoagulation (5) Chronic pain Current Visit: No Status: Acute Code(s): G89.29 - OTHER CHRONIC PAIN SNOMED Code(s): 30877584 Comment: On very high dose long and short acting oxycodone her nurse reported her to be drowsy this morning, not so now I discussed the possibility of weaning down her doses, and she is open to this (6) DVT prophylaxis Current Visit: No Status: Acute Code(s): ERY6864 - SNOMED Code(s): 409955236 Comment: Eliquis (7) Atrial fibrillation Current Visit: No Status: Chronic Code(s): I48.91 - UNSPECIFIED ATRIAL FIBRILLATION SNOMED Code(s): 80704827 Comment: Rate controlled on metoprolol, continue eliquis (8) Ischemic cardiomyopathy Current Visit: No Status: Acute Code(s): I25.5 - ISCHEMIC CARDIOMYOPATHY SNOMED Code(s): 087158424 Comment: holding spironolactone due to hyperkalemia Status and Disposition: PT consult; she is interested in STR
[2019-04-18] MEDS ORDERED: oxyCODONE TAB* 5 MG TAB PO PRN (09:13)
[2019-04-18 11:07] LABS: Calcium 8.5 mg/dL (8.6-10.3)
[2019-04-18 11:13] LABS: EGFR African American 84.2 (>60); EGFR Non-African American 69.6 (>60); Potassium 5.4 mmol/L (3.5-5.0)
[2019-04-18] MEDS: oxyCODONE SR TAB(*) 40 MG TAB.SR PO SCH ×2 (12:18→22:41)
[2019-04-18] MEDS: Atorvastatin* 10 MG TAB PO SCH (22:41)
[2019-04-19] MEDS: oxyCODONE SR TAB(*) 40 MG TAB.SR PO SCH (09:02)
[2019-04-19] MEDS: Apixaban* 5 MG TAB PO SCH ×2 (09:02→19:54)
[2019-04-19] MEDS: Metoprolol Succinate XL TAB* 25 MG PO SCH (09:02)
[2019-04-19] MEDS: DOXYcycline CAP(*) 100 MG PO SCH ×2 (09:02→19:52)
[2019-04-19] MEDS: Cyanocobalamin TAB* 500 MCG PO SCH (09:03)
--- NOTE | 2019-04-19 17:19 | PN ---
Subjective Date of Service: 04/19/19 Interval History: Patient has no complaints today. She is agreeable to discharge to [facility]. She tells me she has chronic back pain which is unchanged today. She denies chest pain, LE pain, difficulty breathing, abd pain, fever/chills. She mentions she had brief moment of shortness of breath while pending down to pick something off floor, which resolved shortly after. Family History: Unchanged from Admission Social History: Unchanged from Admission Past Medical History: Unchanged from Admission Objective Active Medications: Acetaminophen (Tylenol Tab*) 650 mg PO Q4H PRN PRN Reason: PAIN-MILD/TEMP >/= 100.4 Last Admin: 04/16/19 16:15 Dose: 650 mg Apixaban (Eliquis*) 5 mg PO BID [facility] Last Admin: 04/19/19 09:02 Dose: 5 mg Atorvastatin Calcium (Lipitor*) 10 mg PO BEDTIME [facility] Last Admin: 04/18/19 22:41 Dose: 10 mg Cyanocobalamin (Vitamin B12 Tab*) 1,000 mcg PO DAILY [facility] Last Admin: 04/19/19 09:03 Dose: 1,000 mcg Doxycycline Hyclate (Vibramycin Cap(*)) 100 mg PO BID [facility] Last Admin: 04/19/19 09:02 Dose: 100 mg Metoprolol Succinate (Toprol Xl Tab*) 25 mg PO DAILY [facility] Last Admin: 04/19/19 09:02 Dose: 25 mg Oxycodone HCl (Oxycontin(*)) 80 mg PO Q12HR [facility] Last Admin: 04/19/19 09:02 Dose: 80 mg Oxycodone HCl (Roxycodone Tab*) 10 mg PO QID PRN PRN Reason: PAIN - MODERATE Last Admin: 04/19/19 11:50 Dose: 10 mg Prednisone (Deltasone 5 Mg Tab) 10 mg PO BID PRN PRN Reason: leg pain Last Admin: 04/16/19 16:15 Dose: 10 mg Torsemide (Demadex*) 20 mg PO BID PRN PRN Reason: fluid retention Vital Signs - 8 hr 04/19/19 04/19/19 04/19/19 11:00 11:15 11:50 Temperature 98 F Pulse Rate 80 Respiratory 18 23 18 Rate Blood Pressure 126/61 (mmHg) O2 Sat by Pulse 99 Oximetry 04/19/19 04/19/19 15:15 15:41 Temperature 98.4 F Pulse Rate 80 Respiratory 24 22 Rate Blood Pressure 122/58 (mmHg) O2 Sat by Pulse 97 Oximetry Oxygen Devices in Use Now: Nasal Cannula Appearance: Elderly white female, laying upright in bed, appearing comfortable and in NAD Eyes: No Scleral Icterus, - - PERRL Neck: Trachea Midline Respiratory: Symmetrical Chest Expansion and Respiratory Effort, Clear to Auscultation Cardiovascular: NL Sounds; No Murmurs; No JVD, RRR Abdominal: - - abd soft, nontender, nondistneed Extremities: No Clubbing, Cyanosis, - - trace edema to bilateral ankles; dressings to venous stasis ulcers are clear/dry/intact Skin: No Rash or Ulcers Neurological: - - alert and oriented to self and location Result Diagrams: 04/18/19 05:52 04/18/19 10:38 Additional Lab and Data: Above labs were pulled into the note, when the note was edited prior to signing. See below for labs from the day of consultation. Laboratory Tests 04/16/19 04/16/19 11:09 11:09 WBC 5.6 Hgb 10.6 L Hct 33 L Plt Count 146 L Sodium 133 L Potassium 3.9 Chloride 101 Carbon Dioxide 27 BUN 18 Creatinine 0.72 Glucose 138 H Total Protein 8.2 Albumin 3.2 Microbiology and Other Data: Microbiology 04/16/19 10:48 Skin and Soft Tissue MRSA/MSSA (PCR - Final Leg Right Mrsa Positive S.aureus Positive Gram Stain - Final Diagnostic Imagin. Exam Date: 01/21/19 - VL ANK/BRACHIAL INDICES Ankle-brachial index on the right is 1.07. Ankle-brachial index on the left is 0.99. Findings are similar to that identified on . Doppler interrogation demonstrates triphasic waveform in the right posterior tibial artery and monophasic waveform in the right dorsalis pedis artery. Triphasic waveform is noted in the left posterior tibial artery and biphasic waveform is noted in the left dorsalis pedis artery. IMPRESSION: Ankle-brachial index on the right of 1.07 in the left is 0.99. Findings are similar to that identified on December 25, 2017. Assess/Plan/Problems-Billing Assessment: This is a 78 year old woman with history of PAD, CAD, ischemic cardiomyopathy who presented to the ED on 04/16 with worsening pain and leg wounds. - Patient Problems (1) Venous stasis ulcers of both lower extremities Current Visit: No Status: Acute SNOMED Code(s): 936115253 Comment: -Unable to manage at home -Appreciate wound care consult and recommendations -doxycycline day 3 for presumed cellulitis, today will be last dose -unremarkable ABIs in Jan 2019 as above -elevate legs (2) Atrial fibrillation Current Visit: No Status: Chronic Code(s): I48.91 - UNSPECIFIED ATRIAL FIBRILLATION SNOMED Code(s): 50969980 Comment: -Rate controlled -continue metoprolol and eliquis (3) Acute systolic (congestive) heart failure Current Visit: No Status: Acute Code(s): I50.21 - ACUTE SYSTOLIC (CONGESTIVE ) HEART FAILURE SNOMED Code(s): 833669600 Comment: -ischemic cardiomyopathy with EF 20-25% -continue torsemide and metoprolol -has AICD in place (4) Chronic respiratory failure Current Visit: No Status: Chronic Code(s): J96.10 - CHRONIC RESPIRATORY FAILURE, UNSP W HYPOXIA OR HYPERCAPNIA SNOMED Code(s): 69292350 Comment: - Chronically on home O2 at 5-6LNC - Albuterol PRN - appears related to CHF (5) CAD (coronary artery disease) Current Visit: No Status: Acute Code(s): I25.10 - ATHSCL HEART DISEASE OF [place] CORONARY ARTERY W/O ANG PCTRS SNOMED Code(s): 43659477 Comment: -with history of multiple MIs -continue statin and metoprolol, no asa due to anticoagulation (6) On prednisone therapy Current Visit: Yes Status: Acute Code(s): Z79.52 - HIV COUNSELOR (CURRENT) USE OF SYSTEMIC STEROIDS SNOMED Code(s): 761446350 Comment: -patient on chronic prednisone prn for pain, appears for OA which is not beneficial -last dose was 04/16/19 and will discontinue (7) DVT prophylaxis Current Visit: No Status: Acute Code(s): MCR8332 - SNOMED Code(s): 420692194 Comment: -Eliquis (8) Full code status Current Visit: No Status: Acute Code(s): Z78.9 - OTHER SPECIFIED HEALTH STATUS SNOMED Code(s): 053314393 Comment: Status and Disposition: awaiting JULIET
[2019-04-19] MEDS: oxyCODONE SR TAB(*) 40 MG TAB.SR PO PRN (19:50)
[2019-04-19] MEDS: Atorvastatin* 10 MG TAB PO SCH (19:53)
--- NOTE | 2019-04-20 08:16 | PN ---
Subjective Date of Service: 04/20/19 Interval History: Patient eating apple at time of evaluation. Wound ressings removed and this has given her some leg pain but tells me it's tolerated. She denies fever/chills, chest pain, difficulty breathing, abd pain. Family History: Unchanged from Admission Social History: Unchanged from Admission Past Medical History: Unchanged from Admission Objective Active Medications: Acetaminophen (Tylenol Tab*) 650 mg PO Q4H PRN PRN Reason: PAIN-MILD/TEMP >/= 100.4 Last Admin: 04/16/19 16:15 Dose: 650 mg Apixaban (Eliquis*) 5 mg PO BID [facility] Last Admin: 04/19/19 19:54 Dose: 5 mg Atorvastatin Calcium (Lipitor*) 10 mg PO BEDTIME [facility] Last Admin: 04/19/19 19:53 Dose: 10 mg Cyanocobalamin (Vitamin B12 Tab*) 1,000 mcg PO DAILY [facility] Last Admin: 04/19/19 09:03 Dose: 1,000 mcg Doxycycline Hyclate (Vibramycin Cap(*)) 100 mg PO BID [facility] Last Admin: 04/19/19 19:52 Dose: 100 mg Metoprolol Succinate (Toprol Xl Tab*) 25 mg PO DAILY [facility] Last Admin: 04/19/19 09:02 Dose: 25 mg Oxycodone HCl (Oxycontin(*)) 80 mg PO Q12HR PRN PRN Reason: severe pain Last Admin: 04/19/19 19:50 Dose: 80 mg Oxycodone HCl (Roxycodone Tab*) 10 mg PO QID PRN PRN Reason: severe pain breakthrough Torsemide (Demadex*) 20 mg PO BID PRN PRN Reason: fluid retention Vital Signs - 8 hr 04/20/19 04/20/19 02:15 07:15 Temperature 99.1 F 98.2 F Pulse Rate 80 80 Respiratory 20 18 Rate Blood Pressure 121/47 120/55 (mmHg) O2 Sat by Pulse 97 100 Oximetry Oxygen Devices in Use Now: Nasal Cannula Appearance: Elderly white female, sitting in bed, appearing comfortable and in NAD Eyes: No Scleral Icterus, - - PERRL Ears/Nose/Mouth/Throat: Mucous Membranes Moist Neck: Trachea Midline Respiratory: Symmetrical Chest Expansion and Respiratory Effort, Clear to Auscultation Cardiovascular: NL Sounds; No Murmurs; No JVD, RRR Abdominal: - - abd soft, nontender, nondistended Extremities: No Edema, No Clubbing, Cyanosis Skin: - - venous stasis ulcers, larger wounds and more quantity on RLE than LLE ; [place] wound base approx 5cm in diameter; with surrounding erythema which is blanchable Neurological: Alert and Oriented x 3 Result Diagrams: 04/18/19 05:52 04/18/19 10:38 Additional Lab and Data: Above labs were pulled into the note, when the note was edited prior to signing. See below for labs from the day of consultation. Laboratory Tests 04/16/19 04/16/19 11:09 11:09 WBC 5.6 Hgb 10.6 L Hct 33 L Plt Count 146 L Sodium 133 L Potassium 3.9 Chloride 101 Carbon Dioxide 27 BUN 18 Creatinine 0.72 Glucose 138 H Total Protein 8.2 Albumin 3.2 Microbiology and Other Data: Microbiology 04/16/19 10:48 Skin and Soft Tissue MRSA/MSSA (PCR - Final Leg Right Mrsa Positive S.aureus Positive Gram Stain - Final Diagnostic Imagin. Exam Date: 01/21/19 - VL ANK/BRACHIAL INDICES Ankle-brachial index on the right is 1.07. Ankle-brachial index on the left is 0.99. Findings are similar to that identified on . Doppler interrogation demonstrates triphasic waveform in the right posterior tibial artery and monophasic waveform in the right dorsalis pedis artery. Triphasic waveform is noted in the left posterior tibial artery and biphasic waveform is noted in the left dorsalis pedis artery. IMPRESSION: Ankle-brachial index on the right of 1.07 in the left is 0.99. Findings are similar to that identified on December 25, 2017. Assess/Plan/Problems-Billing Assessment: This is a 78 year old woman with history of PAD, CAD, ischemic cardiomyopathy who presented to the ED on 04/16 with worsening pain and leg wounds. - Patient Problems (1) Venous stasis ulcers of both lower extremities Current Visit: No Status: Acute SNOMED Code(s): 917580399 Comment: -Unable to manage at home -Appreciate wound care consult and recommendations -given that patient is MRSA positive on swab and the significant surrounding erythema at presentation, I will cover her for possibility of MRSA cellulitis with 7d of doxycycline (today day 4) -unremarkable ABIs in Jan 2019 -elevate legs (2) Atrial fibrillation Current Visit: No Status: Chronic Code(s): I48.91 - UNSPECIFIED ATRIAL FIBRILLATION SNOMED Code(s): 92940572 Comment: -Rate controlled -continue metoprolol and eliquis (3) Acute systolic (congestive) heart failure Current Visit: No Status: Acute Code(s): I50.21 - ACUTE SYSTOLIC (CONGESTIVE ) HEART FAILURE SNOMED Code(s): 544904063 Comment: -ischemic cardiomyopathy with EF 20-25% -continue torsemide and metoprolol -has AICD in place (4) Chronic respiratory failure Current Visit: No Status: Chronic Code(s): J96.10 - CHRONIC RESPIRATORY FAILURE, UNSP W HYPOXIA OR HYPERCAPNIA SNOMED Code(s): 50501223 Comment: - Chronically on home O2 at 5-6LNC - Albuterol PRN - appears related to CHF (5) CAD (coronary artery disease) Current Visit: No Status: Acute Code(s): I25.10 - ATHSCL HEART DISEASE OF [place] CORONARY ARTERY W/O ANG PCTRS SNOMED Code(s): 36494228 Comment: -with history of multiple MIs -continue statin and metoprolol, no asa due to anticoagulation (6) On prednisone therapy Current Visit: Yes Status: Acute Code(s): Z79.52 - NURSING HOME (CURRENT) USE OF SYSTEMIC STEROIDS SNOMED Code(s): 589556102 Comment: -patient on chronic prednisone prn for pain, appears for OA which is not beneficial -last dose was 04/16/19 and will discontinue (7) DVT prophylaxis Current Visit: No Status: Acute Code(s): EBX8373 - SNOMED Code(s): 359054986 Comment: -Eliquis (8) Full code status Current Visit: No Status: Acute Code(s): Z78.9 - OTHER SPECIFIED HEALTH STATUS SNOMED Code(s): 877893144 Comment: Status and Disposition: awaiting JULIET
[2019-04-20] MEDS: DOXYcycline CAP(*) 100 MG PO SCH ×2 (09:10→21:26)
[2019-04-20] MEDS: Cyanocobalamin TAB* 500 MCG PO SCH (09:10)
[2019-04-20] MEDS: oxyCODONE SR TAB(*) 40 MG TAB.SR PO PRN ×2 (09:10→21:25)
[2019-04-20] MEDS: Metoprolol Succinate XL TAB* 25 MG PO SCH (09:10)
[2019-04-20] MEDS: Apixaban* 5 MG TAB PO SCH ×2 (09:11→21:26)
--- NOTE | 2019-04-20 17:00 | PN ---
Subjective Date of Service: 04/20/19 Interval History: Ms. Najera a 78 yo female with PMH significant for CAD, C A fib, hx v tach , ischemic cardiomyopathy, chronic hypoxic respiratory failure, HLD, TIA, PVD, venous insufficiency, and osteoarthritis; who presented to the emergency room with complaints of worsening LE wounds. She was admitted for worsening LE wounds and possible cellulitis. She presented to the hospital with known venous stasis ulcer, but with worsening of wounds at home. She follows with the [facility], and has been being following since January 2019 for the wounds on the LEs. The legs have increased open areas today, when compared to Friday (4 days ago). Denies fever, chills, nausea, vomiting, or diarrhea. The edema in bilateral LEs has improved, as well as the pain. Patient seen and examined at bedside. Verbal consent for wound consult and photograph. Family History: Unchanged from Admission Social History: Unchanged from Admission Past Medical History: Unchanged from Admission Objective Active Medications: Acetaminophen (Tylenol Tab*) 650 mg PO Q4H PRN Reason: PAIN-MILD/TEMP >/= 100.4 Apixaban (Eliquis*) 5 mg PO BID [facility] Atorvastatin Calcium (Lipitor*) 10 mg PO BEDTIME [facility] Cyanocobalamin (Vitamin B12 Tab*) 1,000 mcg PO DAILY [facility] Doxycycline Hyclate (Vibramycin Cap(*)) 100 mg PO BID G[facility]RIELLA Metoprolol Succinate (Toprol Xl Tab*) 25 mg PO DAILY G[facility] Oxycodone HCl (Oxycontin(*)) 80 mg PO Q12HR PRN Reason: severe pain Oxycodone HCl (Roxycodone Tab*) 10 mg PO QID PRN Reason: severe pain breakthrough Torsemide (Demadex*) 20 mg PO BID PRN Reason: fluid retention Vital Signs - 8 hr 04/20/19 04/20/19 04/20/19 09:10 11:15 13:57 Temperature 97.8 F Pulse Rate 80 Respiratory 18 18 18 Rate Blood Pressure 119/62 (mmHg) O2 Sat by Pulse 100 Oximetry Oxygen Devices in Use Now: Nasal Cannula Appearance: NAD, laying in bed Ears/Nose/Mouth/Throat: Mucous Membranes Moist Respiratory: Symmetrical Chest Expansion and Respiratory Effort Extremities: No Edema, - - Unable to palpate DP or PT pulse bilateral. DP pulses present with doppler. Skin: - - See skin note below Neurological: Alert and Oriented x 3 Nutrition: Taking PO's Result Diagrams: 04/18/19 05:52 04/21/19 16:21 Additional Lab and Data: Above BMP was pulled into the note, when the note was edited prior to signing. See labs below from day of consultation. Laboratory Tests 04/16/19 04/18/19 04/18/19 11:09 05:52 05:52 WBC 4.6 Hgb 11.1 L Hct 34 L Plt Count 172 C-Reactive Protein 85.97 H Total Protein 8.2 Albumin 3.2 Prealbumin 6 L 04/18/19 10:38 Sodium 133 L Potassium 5.4 H Chloride 103 Carbon Dioxide 28 BUN 20 Creatinine 0.80 Glucose 124 H Microbiology and Other Data: Microbiology 04/16/19 10:48 Skin and Soft Tissue MRSA/MSSA (PCR - Final Leg Right Mrsa Positive S.aureus Positive Gram Stain - Final Wound Culture - Final MRSA Pseudomonas Aeruginosa Corynebacterium Striatum Diagnostic Imagin. Exam Date: 01/21/19 - VL ANK/BRACHIAL INDICES Ankle-brachial index on the right is 1.07. Ankle-brachial index on the left is 0.99. Findings are similar to that identified on . Doppler interrogation demonstrates triphasic waveform in the right posterior tibial artery and monophasic waveform in the right dorsalis pedis artery. Triphasic waveform is noted in the left posterior tibial artery and biphasic waveform is noted in the left dorsalis pedis artery. IMPRESSION: Ankle-brachial index on the right of 1.07 in the left is 0.99. Findings are similar to that identified on December 25, 2017. Skin Deviation Note - Skin Deviation Findings Left lateral lower leg - There is a small open area, measrues 2 cm x 1 cm x 0.1 cm. The wound base is 80 % red granulation tissue and 10 % necrotic tissue. There are areas of dry eschar in the surrounding area. There is a small amount of serosang drainage. See below for description of posterior/lateral area of clusters. Medial left lower leg - Following wounds are described working proximal to distal. The most proximal open area, measures 2 cm x 1.4 cm x 0.1 cm. The wound base is 80 % red granulation tissue and 20 % yellow necrotic tissue. There is scant serous drainage. Cluster of small open areas (top of the picture), measures 2.5 cm x 2 cm x 0.1 cm. The wound bases are 100% yellow necrotic tissue. There is scant serous drainage. Below the small cluster is an open area , measures 2.5 cm x 1.5 cm x 0.1 cm. The wound base is 100% red granulation tissue. There is scant serous drainage. The open area that is distal to this, measures 2.3 cm x 2 cm x 0.1 cm. The wound base is 80% adherent yellow slough and 20 % red granulation tissue. There is scant serous drainage. The most distal wound, measures 2.5 cm x 1.5 cm x 0.1 cm. The wound base is 80 % red granulation tissue and 20 % yellow necrotic tissue. There is scant serous drainage. The surrounding skin is intact, with dry flaky skin. Left Posterior Leg - Cluster of open areas, measures 5 cm x 1 cm x 0.1 cm. The wound base is 90% pink granulation tissue and 10 % adherent yellow slough. The surrounding skin is slightly macerated. There is scant serous drainage. Proximal and not in the picture is a small open area, measures 1.5 cm x 0.7 cm x 0.1 cm. The wound base is 100% pink granulation tissue. There is scant drainage. The surrounding skin is intact. Right medial lower leg - There are multiple open areas. The proximal cluster of open areas, measures 9 cm x 16 cm x 0.1 cm. The wound bases area 90 % red granulation tissue and 10 % adherent yellow slough. The most distal cluster of open areas, measure 9.5 cm x 7 cm x 0.1 cm. The wound base is 50 % red granulation tissue and 50% adherent yellow slough. There is a smaller area on the medial leg, towards the posterior, measures 1 cm x 0.6 cm x 0.1 cm. The wound base is 100%red granulation tissue. There is a moderate amount of serous drainage from the wounds. The surrounding skin is slightly macerated. There is dry flaky skin around the ankle. Right lateral lower leg - There is a large open area with a few smaller open areas surrounding, the total area measures 11 cm x 7 cm x 0.1 cm. The wound base is 90% red granulation tissue and 10 % adherent yellow slough. There is a small to moderate amount of serous drainage. The surrounding skin is intact, but slightly macerated. There is dry skin at the ankle. Right posterior lower leg - There is a large open area, measures 11 cm x 5 cm x 0.1 cm. The wound base is 90% red granulation tissue and 10 % adherent yellow slough. There is a small to moderate amount of serous drainage. The surrounding skin is slightly macerated. Wound Problem/Plan Assessment: Ms. Najera a 78 yo female with PMH significant for CAD, C A fib, hx v tach , ischemic cardiomyopathy, chronic hypoxic respiratory failure, HLD, TIA, PVD, venous insufficiency, and osteoarthritis; who presented to the emergency room with complaints of worsening lower extremity wounds. She was admitted for LE wounds. She presented to the hospital with known venous stasis ulcer, but with worsening of wounds. 1. Bilateral LE wounds, venous ulcers with moisture associated skin damage. Previous ABIs mostly unremarkable. Wound culture with MRSA, Corynebacterium, and pseudomonas, suspect this likely represents colonization, the wounds do not appear to be grossly infected at this time. She has been on Doxycycline since admission. Recommend washing the legs with soap and water, apply oil emulsion to the open and weeping areas, followed by calcium alginate, and rolled gauze, change daily. If there is heavy drainage, can apply ABD pads over the calcium alginate. Keep legs elevated. Unable to palpate pulses, pulses are present with doppler; recommend obtaining updated ABIs (in setting of multiple open areas on the lower legs, she may not be able to tolerate ABIs at this time). She should continue following with the wound clinic at discharge. 2. Venous insufficiency with hx venous ulcers and venous dermatitis. 3. Chronic A fib. On Eliquis, this may affect wound healing. 4. At risk for malnutrition. Pre-albumin was 6 last week. Dietitians are closely following. 5. Nutrition. Recommend maintaining nutrition requirements to assist with wound healing (Protein 1.3-1.5 grams/kg per day and Calories 30-35 kcal/kg per day). Heart Healthy, soft diet. 6. Code Status. Full Code. 7. Disposition. Inpatient, disposition per primary medicine team. TIME SPENT: Time for this wound consultation was 40 minutes and 30 minute was spent with the patient discussing wounds over the past few day; removing old dressings; assessing, measuring, and photographing the wounds; and applying new DSGs. Is Patient a Wound Clinic Patient: Yes - Last visit 03/29/19 Current Treatment: Right leg AG collagen and unna boot. Left leg commpression sock. Attending: Amrita Ruiz
[2019-04-20] MEDS: oxyCODONE TAB* 5 MG TAB PO PRN (17:44)
[2019-04-20] MEDS: Atorvastatin* 10 MG TAB PO SCH (21:26)
[2019-04-21] MEDS: DOXYcycline CAP(*) 100 MG PO SCH ×2 (08:39→21:43)
[2019-04-21] MEDS: Cyanocobalamin TAB* 500 MCG PO SCH (08:39)
[2019-04-21] MEDS: Apixaban* 5 MG TAB PO SCH ×2 (08:39→21:43)
[2019-04-21] MEDS: Metoprolol Succinate XL TAB* 25 MG PO SCH (08:39)
[2019-04-21] MEDS: oxyCODONE TAB* 5 MG TAB PO PRN ×2 (10:09→18:00)
--- NOTE | 2019-04-21 16:02 | PN ---
Subjective Date of Service: 04/21/19 Interval History: Patient taken down to have ABIs performed, and she could not tolerate the cuffs due to pain so procedure was not performed. AT time of my evaluation, patient has no complaints about leg pain. She denies chest pain, fever/chills, abd pain , difficulty breathing. Family History: Unchanged from Admission Social History: Unchanged from Admission Past Medical History: Unchanged from Admission Objective Active Medications: Acetaminophen (Tylenol Tab*) 650 mg PO Q4H PRN PRN Reason: PAIN-MILD/TEMP >/= 100.4 Last Admin: 04/16/19 16:15 Dose: 650 mg Apixaban (Eliquis*) 5 mg PO BID [facility] Last Admin: 04/21/19 08:39 Dose: 5 mg Atorvastatin Calcium (Lipitor*) 10 mg PO BEDTIME [facility] Last Admin: 04/20/19 21:26 Dose: 10 mg Cyanocobalamin (Vitamin B12 Tab*) 1,000 mcg PO DAILY [facility] Last Admin: 04/21/19 08:39 Dose: 1,000 mcg Doxycycline Hyclate (Vibramycin Cap(*)) 100 mg PO BID [facility] Last Admin: 04/21/19 08:39 Dose: 100 mg Metoprolol Succinate (Toprol Xl Tab*) 25 mg PO DAILY [facility] Last Admin: 04/21/19 08:39 Dose: 25 mg Oxycodone HCl (Oxycontin(*)) 80 mg PO Q12HR PRN PRN Reason: severe pain Last Admin: 04/20/19 21:25 Dose: 80 mg Oxycodone HCl (Roxycodone Tab*) 10 mg PO QID PRN PRN Reason: severe pain breakthrough Last Admin: 04/21/19 10:09 Dose: 10 mg Torsemide (Demadex*) 20 mg PO BID PRN PRN Reason: fluid retention Vital Signs - 8 hr 04/21/19 04/21/19 04/21/19 08:00 10:09 11:26 Temperature 97.9 F Pulse Rate 78 Respiratory 20 20 22 Rate Blood Pressure 120/53 (mmHg) O2 Sat by Pulse 100 Oximetry 04/21/19 13:00 Temperature Pulse Rate Respiratory 20 Rate Blood Pressure (mmHg) O2 Sat by Pulse Oximetry Oxygen Devices in Use Now: Nasal Cannula Appearance: Elderly white female, laying in bed, appearing comfortable and in NAD Eyes: No Scleral Icterus, - - PERRL Ears/Nose/Mouth/Throat: Mucous Membranes Moist Neck: Trachea Midline Respiratory: Symmetrical Chest Expansion and Respiratory Effort, Clear to Auscultation Cardiovascular: NL Sounds; No Murmurs; No JVD, RRR Abdominal: - - abd soft, nontender, nondistended Extremities: No Edema, No Clubbing, Cyanosis Skin: - - b/t LEs in dressings from ankle to knee, clean/dry/intact Neurological: Alert and Oriented x 3 Result Diagrams: 04/18/19 05:52 04/21/19 16:21 Additional Lab and Data: Above labs were pulled into the note, when the note was edited prior to signing. See below for labs from the day of consultation. Laboratory Tests Microbiology and Other Data: Microbiology 04/16/19 10:48 Skin and Soft Tissue MRSA/MSSA (PCR - Final Leg Right Mrsa Positive S.aureus Positive Gram Stain - Final Wound Culture - Final MRSA Pseudomonas Aeruginosa Corynebacterium Striatum Diagnostic Imagin. Exam Date: 01/21/19 - VL ANK/BRACHIAL INDICES Ankle-brachial index on the right is 1.07. Ankle-brachial index on the left is 0.99. Findings are similar to that identified on . Doppler interrogation demonstrates triphasic waveform in the right posterior tibial artery and monophasic waveform in the right dorsalis pedis artery. Triphasic waveform is noted in the left posterior tibial artery and biphasic waveform is noted in the left dorsalis pedis artery. IMPRESSION: Ankle-brachial index on the right of 1.07 in the left is 0.99. Findings are similar to that identified on December 25, 2017. Assess/Plan/Problems-Billing Assessment: This is a 78 year old woman with history of PAD, CAD, ischemic cardiomyopathy who presented to the ED on 04/16 with worsening pain and leg wounds. - Patient Problems (1) Venous stasis ulcers of both lower extremities Current Visit: No Status: Acute SNOMED Code(s): 466555907 Comment: -Unable to manage at home -Appreciate wound care consult and recommendations -given that patient is MRSA positive on swab and the significant surrounding erythema at presentation, I will cover her for possibility of MRSA cellulitis with 5d doxycycline (final day today) -unremarkable ABIs in Jan 2019 -elevate legs -attempted repeat ABIs due to concern for possible arterial component to ulcers as well, unable to be tolerated by patient; if her wounds continue to heal poorly after discharge then ABIs or CTA abd aorta with runoff should be completed outpatient -low prealbumin likely contributing to poor healing, dieticians not suggesting supplemental nutrition (2) Atrial fibrillation Current Visit: No Status: Chronic Code(s): I48.91 - UNSPECIFIED ATRIAL FIBRILLATION SNOMED Code(s): 80471062 Comment: -Rate controlled -continue metoprolol and eliquis (3) Acute systolic (congestive) heart failure Current Visit: No Status: Acute Code(s): I50.21 - ACUTE SYSTOLIC (CONGESTIVE ) HEART FAILURE SNOMED Code(s): 311066922 Comment: -ischemic cardiomyopathy with EF 20-25% -continue torsemide and metoprolol -has AICD in place (4) Chronic respiratory failure Current Visit: No Status: Chronic Code(s): J96.10 - CHRONIC RESPIRATORY FAILURE, UNSP W HYPOXIA OR HYPERCAPNIA SNOMED Code(s): 62038852 Comment: - Chronically on home O2 at 5-6LNC - Albuterol PRN - appears related to CHF (5) CAD (coronary artery disease) Current Visit: No Status: Acute Code(s): I25.10 - ATHSCL HEART DISEASE OF [place] CORONARY ARTERY W/O ANG PCTRS SNOMED Code(s): 32171837 Comment: -with history of multiple MIs -continue statin and metoprolol, no asa due to anticoagulation (6) On prednisone therapy Current Visit: Yes Status: Acute Code(s): Z79.52 - PENITENTIARY (CURRENT) USE OF SYSTEMIC STEROIDS SNOMED Code(s): 298430680 Comment: -patient on chronic prednisone prn for pain, appears for OA which is not beneficial -last dose was 04/16/19 and will discontinue (7) DVT prophylaxis Current Visit: No Status: Acute Code(s): VHA4556 - SNOMED Code(s): 054680779 Comment: -Eliquis (8) Full code status Current Visit: No Status: Acute Code(s): Z78.9 - OTHER SPECIFIED HEALTH STATUS SNOMED Code(s): 386340392 Comment: Status and Disposition: awaiting JULIET
[2019-04-21 16:54] LABS: BUN/Creatinine Ratio 22.1 (8-20); Calcium 8.4 mg/dL (8.6-10.3); EGFR African American 101.5 (>60); EGFR Non-African American 83.9 (>60); Potassium 4.6 mmol/L (3.5-5.0)
[2019-04-21] MEDS: oxyCODONE SR TAB(*) 40 MG TAB.SR PO PRN (21:42)
[2019-04-21] MEDS: Atorvastatin* 10 MG TAB PO SCH (21:43)
[2019-04-22] MEDS: Apixaban* 5 MG TAB PO SCH (08:14)
[2019-04-22] MEDS: Cyanocobalamin TAB* 500 MCG PO SCH (08:14)
[2019-04-22] MEDS: Metoprolol Succinate XL TAB* 25 MG PO SCH (08:14)
[2019-04-22] MEDS: oxyCODONE TAB* 5 MG TAB PO PRN (08:14)
--- NOTE | 2019-04-22 11:18 | DS ---
CC: Dr. Edge * DISCHARGE SUMMARY: DATE OF ADMISSION: 04/16/19 DATE OF DISCHARGE: 04/22/19 PROVIDER: UYEN Yee ATTENDING PHYSICIAN WHILE IN THE HOSPITAL: Dr. Brush * (dictated by UYEN Yee) PRIMARY CARE PROVIDER: Dr. Edge. PRIMARY DIAGNOSIS: Bilateral lower extremity venous stasis ulcers. SECONDARY DIAGNOSES: 1. Coronary artery disease with history of multiple myocardial infarctions. 2. Atrial fibrillation, on Eliquis. 3. History of ventricular tachycardia, status post biventricular pacer and automatic implantable cardioverter defibrillator. 4. Ischemic cardiomyopathy with ejection fraction of 20% to 25%. 5. Chronic hypoxemic respiratory failure, on 5 to 6 L of oxygen continuously. 6. Dyslipidemia. 7. History of transient ischemic attack. 8. Peripheral vascular disease. PERTINENT LAB DATA/STUDIES WHILE IN THE HOSPITAL: CRP on date of admission 99.14 , later 85.97 on 04/18/19. Prealbumin of 6, albumin 3.2. Noteworthy studies: Ankle brachial indices on , WILBER on the right 1.07, WILBER on the left is 0.99. ABIs were attempted during this hospitalization and unable to be tolerated by the patient. HISTORY OF PRESENT ILLNESS/HOSPITAL COURSE: Felicia Bain is a 78-year-old white female with past medical history significant for coronary artery disease, ischemic cardiomyopathy with EF of 20% to 25%, chronic hypoxemic respiratory failure, on 5 to 6 L oxygen continuously and atrial fibrillation, on Eliquis, and peripheral vascular disease, who presents to emergency department due to leg pain and progressively worsening wounds on 04/16/19. The patient has been following with the wound clinic outpatient and knows that she needs to elevate her legs, but has been having a difficult time doing so at home and ultimately difficult time caring for her wounds. She was seen by the wound consultation service during her hospitalization, who made wound care recommendations during her hospital stay. She was additionally seen by the registered dietitians due to her poor wound healing. During hospitalization, her prealbumin was found to be 6 and the registered dietitians were not suggesting any supplemental additional nutrition such as Ensure during her hospitalization. Additionally during her hospitalization, due to the significant erythema at her presentation and her positive MRSA wound cultures, she was covered for MRSA cellulitis with doxycycline for a total of 5 days. She was afebrile during the entirety of hospital stay. She did at one point have leukopenia with white blood cell count of 3.1, which did resolve. Ultimately, the patient was found to need subacute rehab as recommended by physical therapist and additionally by the staff as the patient was having difficult time caring for herself, this is what led to her coming to the hospital in the first place. She was medically ready to leave the hospital for several days and ultimately awaiting rehab placement. She has been accepted to [facility] for subacute rehab, and on date of discharge, she has no complaints. Her pain is well controlled. She denies fever, chills, chest pain, difficulty breathing. The patient was previously taking prednisone as needed for osteoarthritis pain and she was infrequently seeking this and showing no signs of adrenal insufficiency and therefore I have discontinued this medication during her hospitalization as prednisone is not known to help osteoarthritis pain. Additionally, the patient was hyperkalemic during her hospitalization and her home potassium chloride supplement was discontinued and this later resolved. PHYSICAL EXAM ON DAY OF DISCHARGE: General: Elderly white female, lying in hospital bed, appearing comfortable in no acute distress. Eyes: PERRLA. Sclerae anicteric. Lungs: Clear to auscultation throughout. Cardio: Regular rate and rhythm without murmurs, rubs, or gallops. Abdomen: Soft, tender, nondistended. Extremities: Bilateral lower extremities in Kerlix, which are clear, dry, and intact. Neuro: The patient is alert and oriented x3. DISCHARGE PLAN: Discharge instructions: The patient should continue following with the wound clinic. As her pain tolerance improves, as her wounds hopefully heal, WILBER should be attempted. If she is exhibiting continued wound healing, then suspicion for arterial component of her wound should be further considered and considering that ABIs seemed to be too painful to the patient, then a CTA of the abdominal aorta with run off should be performed outpatient. The patient should follow up with her primary care provider 1 week after discharge from subcu rehab and she should still continue wound care outpatient after this point. She should return to emergency department for fever, chills, red streaking up her extremities, purulent drainage from her wounds, chest pain, difficulty breathing, or other concerning symptoms. Discharge Diet: Heart healthy diet. Discharge Activity: The patient should return to normal activities as tolerated. The patient should elevate her bilateral legs whenever possible. DISCHARGE MEDICATIONS: New medications: 1. Oxycodone SR 80 mg p.o. q.2 hours p.r.n. severe pain. 2. Tylenol 650 mg p.o. q.4 hours p.r.n. mild pain. Continued home medications: 1. Vitamin B12 1000 mcg p.o. daily. 2. Vitamin D 1000 units p.o. b.i.d. 3. Torsemide 20 mg p.o. b.i.d. p.r.n. edema. 4. Lipitor 10 mg p.o. at bedtime. 5. Oxycodone 20 mg p.o. 4 times a day p.r.n. pain. 6. Spironolactone 50 mg p.o. b.i.d. 7. Hydrocortisone 1 application topical b.i.d. 8. Metoprolol succinate 25 mg p.o. daily. 9. Eliquis 5 mg p.o. b.i.d. 10. Tobramycin 0.3% 1 drop both eyes 4 times a day. 11. Diclofenac gel 1 application topically b.i.d. Discontinued home medications: 1. Prednisone 10 mg p.o. daily p.r.n. osteoarthritis pain. 2. Oxycodone 80 mg t.i.d. 3. Potassium chloride 20 mEq p.o. t.i.d. CONDITION ON DISCHARGE: Stable. DISPOSITION: [facility] for subacute rehab. TIME SPENT: Approximately 40 minutes was spent on this discharge, approximately half of this time was spent at bedside evaluating the patient and discussing the plan of care. UYEN YEE [id number]/[facility] #: [id number]
[2019-04-22 11:40] VITALS: BP 140/65
== END 2019-04-22 12:10 | DRG 592 ==
LOC: ED 10:32 → MED 12:26
PROVIDERS: ADMIT Internal Medicine; ATTEND Internal Medicine
DX: L97.819 Non-pressure chronic ulcer of other part of right lower leg with unspecified severity (principal); I50.21 Acute systolic (congestive) heart failure; J96.11 Chronic respiratory failure with hypoxia; I47.2 Ventricular tachycardia; L03.116 Cellulitis of left lower limb; L03.115 Cellulitis of right lower limb; I48.20 Chronic atrial fibrillation, unspecified; L97.829 Non-pressure chronic ulcer of other part of left lower leg with unspecified severity; I83.018 Varicose veins of right lower extremity with ulcer other part of lower leg; I83.028 Varicose veins of left lower extremity with ulcer other part of lower leg; I25.5 Ischemic cardiomyopathy; E78.5 Hyperlipidemia, unspecified; I73.9 Peripheral vascular disease, unspecified; I25.10 Atherosclerotic heart disease of native coronary artery without angina pectoris; B95.62 Methicillin resistant Staphylococcus aureus infection as the cause of diseases classified elsewhere; E87.5 Hyperkalemia; M19.90 Unspecified osteoarthritis, unspecified site; Z99.81 Dependence on supplemental oxygen; Z86.73 Personal history of transient ischemic attack (TIA), and cerebral infarction without residual deficits; Z79.01 Long term (current) use of anticoagulants; Z95.810 Presence of automatic (implantable) cardiac defibrillator; I25.2 Old myocardial infarction; Z79.891 Long term (current) use of opiate analgesic; Z79.52 Long term (current) use of systemic steroids; Z79.899 Other long term (current) drug therapy
CPT/HCPCS: 36415; 80048; 80053; 84134; 85025; 85610; 86140; 87070; 87077; 87186; 87205; 87640; 87641; 93005; 96365; 96375; 99284; A9270-GY; J0690; J2270; J2405; J3370; J7512

== ENCOUNTER 2019-06-30 23:13 | Emergency (ER) | payer MEDICARE, OTHER ==
[2019-06-30] MEDS ORDERED: Lidocaine PATCH 5% PATCH TRANSDERM ONE (23:22)
[2019-07-01] MEDS ORDERED: Morphine PF AMP (1 MG/ML) 10 MG/10 ML AMP IM ONE (01:05)
[2019-07-01] MEDS ORDERED: Morphine 4 MG/ML VIAL (1 ml) IM ONE (01:08)
[2019-07-01 01:57] VITALS: BP 179/104
[2019-07-01] MEDS ORDERED: Lidocaine Patch REMOVE PATCH SCH (21:00)
== END 2019-07-01 01:56 | disposition home or self-care (01) ==
LOC: ED 23:13

== ENCOUNTER 2020-12-17 22:01 | Inpatient (IN) ==
[2020-12-17 23:17] LABS: ABS Eosinophils 0.1 10^3/ul (0-0.6); ABS Lymphocytes 0.4 10^3/ul (1.0-4.8); ABS Monocytes 0.3 10^3/ul (0-0.8); ABS Neutrophils 3.3 10^3/ul (1.5-7.7); Eosinophil % 2.4 %; Hematocrit 31 % (35-47); Hemoglobin 9.8 g/dL (12.0-16.0); Lymphocyte % 8.8 %; Mean Corpuscular HGB Conc 32 g/dL (31-36); Mean Corpuscular Hemoglobin 28 pg (27-31); Mean Corpuscular Volume 86 fL (80-97); Mean Platelet Volume 8.4 fL (7.4-10.4); Platelet Count 131 10^3/uL (150-450); Red Blood Count 3.55 10^6 /uL (3.70-4.87); Red Cell Distribution Width 17 % (10-15)
[2020-12-17 23:35] LABS: ALT 7 U/L (7-52); Albumin 3.5 g/dL (3.2-5.2); Albumin/Globulin Ratio 0.7 (1-3); Alkaline Phosphatase 131 U/L (35-149); Blood Urea Nitrogen 24 mg/dL (6-24); CO2 Carbon Dioxide 27 mmol/L (22-32); Calcium 9.1 mg/dL (8.6-10.3); Chloride 102 mmol/L (101-111); Globulin 5.3 g/dL (2-4); Glucose 115 mg/dL (70-100); Lipase 21 U/L (11.0-82.0); Sodium 134 mmol/L (135-145); Total Protein 8.8 g/dL (6.4-8.9)
[2020-12-17 23:41] LABS: Anion Gap 5 mmol/L (2-11)
[2020-12-17] MEDS ORDERED: Iohexol 300 (CONTRAST) 10 ML SDV IV ONE (23:55)
[2020-12-18 01:42] LABS: Potassium Redraw 4.3 mmol/L (3.5-5.0)
[2020-12-18] MEDS ORDERED: Furosemide 20 mg/2 ml IV VIAL IV ONE (02:47)
[2020-12-18 03:16] LABS: INR 1.52 (0.86-1.15)
[2020-12-18 03:47] LABS: Urine Appearance Cloudy; Urine Bilirubin Negative (Negative); Urine Blood Negative (Negative); Urine Color Yellow; Urine Glucose Negative (Negative); Urine Ketones Negative (Negative); Urine Nitrite Negative (Negative); Urine Protein 1+(30 mg/dL) (Negative); Urine Urobilinogen Negative (Negative)
[2020-12-18 03:47] LABS: Magnesium 1.9 mg/dL (1.9-2.7)
[2020-12-18 03:50] LABS: Urine Bacteria 1+ (Absent); Urine Red Blood Cell 2+(6-10/hpf) (Absent); Urine Squamous Epithelial Cell Present (Absent); Urine White Blood Cell Trace(0-5/hpf) (Absent)
[2020-12-18 04:01] LABS: Urine Specific Gravity > 1.060 (1.002-1.030)
[2020-12-18 04:59] LABS: Rapid COVID-19 Molecular Undetected (Undetected)
[2020-12-18 08:20] LABS: Total Iron Binding Capacity 392 mcg/dL (250-450); Transferrin 280 mg/dL (203-362)
[2020-12-18 08:21] LABS: % Iron Saturation 5 % (15-55); Iron < 20 ug/dL (50-212); Unsaturated Iron Binding < 377 ug/dL
[2020-12-18 08:40] LABS: Ferritin 47.1 ng/mL (11-307)
[2020-12-18] MEDS: Furosemide 40 mg/4 ml IV VIAL IV SCH ×2 (09:17→15:48)
[2020-12-18] MEDS ORDERED: Perflutren Lipid Microsphere 3 ML VIAL ONE (15:03)
[2020-12-18] MEDS ORDERED: Furosemide 40 mg/4 ml IV VIAL IV SCH (16:00)
[2020-12-18] MEDS ORDERED: Iron Sucrose 200 MG in NS 0.9% 100 ml BAG 100 ML IVPB SCH (18:00)
[2020-12-18] MEDS: Iron Sucrose 200 MG in NS 0.9% 100 ml BAG 100 ML IVPB SCH (21:32)
[2020-12-19 05:49] LABS: ABS Eosinophils 0.1 10^3/ul (0-0.6); ABS Lymphocytes 0.4 10^3/ul (1.0-4.8); ABS Monocytes 0.3 10^3/ul (0-0.8); ABS Neutrophils 2.7 10^3/ul (1.5-7.7); Eosinophil % 3.2 %; Hematocrit 28 % (35-47); Hemoglobin 8.9 g/dL (12.0-16.0); Lymphocyte % 11.1 %; Mean Corpuscular HGB Conc 32 g/dL (31-36); Mean Corpuscular Hemoglobin 27 pg (27-31); Mean Corpuscular Volume 84 fL (80-97); Mean Platelet Volume 7.9 fL (7.4-10.4); Nucleated Red Blood Cells % 0.1; Platelet Count 113 10^3/uL (150-450); Red Blood Count 3.27 10^6 /uL (3.70-4.87); Red Cell Distribution Width 17 % (10-15); White Blood Count 3.6 10^3/uL (3.5-10.8)
[2020-12-19 06:28] LABS: Calcium 8.5 mg/dL (8.6-10.3); Potassium 3.9 mmol/L (3.5-5.0)
[2020-12-19] MEDS: Furosemide 40 mg/4 ml IV VIAL IV SLOW PU SCH ×2 (11:04→17:47)
[2020-12-19] MEDS: Lidocaine PATCH 5% PATCH TRANSDERM SCH (15:15)
[2020-12-19] MEDS ORDERED: Sodium Chloride 2% OPTH.SOL 15 ML BTL RIGHT EYE PRN (16:27)
[2020-12-19] MEDS: Iron Sucrose 200 MG in NS 0.9% 100 ml BAG 100 ML IVPB SCH (21:10)
[2020-12-19] MEDS: Lidocaine Patch REMOVE PATCH PATCH OFF SCH (21:51)
[2020-12-20 05:55] LABS: ABS Eosinophils 0.1 10^3/ul (0-0.6); ABS Lymphocytes 0.5 10^3/ul (1.0-4.8); ABS Monocytes 0.3 10^3/ul (0-0.8); Eosinophil % 3.8 %; Hematocrit 30 % (35-47); Hemoglobin 9.5 g/dL (12.0-16.0); Mean Corpuscular HGB Conc 32 g/dL (31-36); Mean Corpuscular Hemoglobin 28 pg (27-31); Mean Corpuscular Volume 86 fL (80-97); Platelet Count 115 10^3/uL (150-450); Red Blood Count 3.48 10^6 /uL (3.70-4.87); Red Cell Distribution Width 17 % (10-15); White Blood Count 2.9 10^3/uL (3.5-10.8)
[2020-12-20 06:19] LABS: Calcium 8.7 mg/dL (8.6-10.3); Magnesium 1.7 mg/dL (1.9-2.7); Potassium 3.9 mmol/L (3.5-5.0)
[2020-12-20] MEDS ORDERED: Magnesium Sulfate 2 gm BAG 2 GM/50 ML BAG IVPB ONE (07:01)
[2020-12-20] MEDS: Furosemide 40 mg/4 ml IV VIAL IV SLOW PU SCH ×2 (09:37→17:19)
[2020-12-20] MEDS: Lidocaine PATCH 5% PATCH TRANSDERM SCH (09:47)
[2020-12-20 11:19] LABS: Folate 12.44 ng/mL (5.90-24.80)
[2020-12-20] MEDS: Iron Sucrose 200 MG in NS 0.9% 100 ml BAG 100 ML IVPB SCH (20:26)
[2020-12-20] MEDS: Lidocaine Patch REMOVE PATCH PATCH OFF SCH (20:26)
[2020-12-21 06:01] LABS: ABS Eosinophils 0.1 10^3/ul (0-0.6); ABS Lymphocytes 0.5 10^3/ul (1.0-4.8); ABS Monocytes 0.3 10^3/ul (0-0.8); Eosinophil % 3.7 %; Hematocrit 29 % (35-47); Hemoglobin 9.6 g/dL (12.0-16.0); Lymphocyte % 16.1 %; Mean Corpuscular HGB Conc 33 g/dL (31-36); Mean Corpuscular Hemoglobin 28 pg (27-31); Mean Corpuscular Volume 85 fL (80-97); Mean Platelet Volume 8.2 fL (7.4-10.4); Nucleated Red Blood Cells % 0.2; Platelet Count 117 10^3/uL (150-450); Red Blood Count 3.44 10^6 /uL (3.70-4.87); Red Cell Distribution Width 17 % (10-15); White Blood Count 2.9 10^3/uL (3.5-10.8)
[2020-12-21] MEDS: oxyCODONE SR 40 mg TAB PO SCH ×2 (06:02→20:55)
[2020-12-21 06:15] LABS: Calcium 8.8 mg/dL (8.6-10.3); Magnesium 1.9 mg/dL (1.9-2.7); Potassium 3.6 mmol/L (3.5-5.0)
[2020-12-21] MEDS: Lidocaine PATCH 5% PATCH TRANSDERM SCH (10:07)
[2020-12-21] MEDS: Furosemide 40 mg/4 ml IV VIAL IV SLOW PU SCH ×2 (10:31→17:25)
[2020-12-21 11:33] LABS: Albumin 2.8 g/dL (3.4-4.7); Gamma Globulin 2.2 g/dL (0.6-1.6); Total Protein(PEP) 8.5 g/dL (6.3 - 7.9)
[2020-12-21] MEDS: Erythromycin OPTH OINT APPLIC OINT RIGHT EYE SCH ×2 (17:29→20:55)
[2020-12-21] MEDS: Iron Sucrose 200 MG in NS 0.9% 100 ml BAG 100 ML IVPB SCH (20:55)
[2020-12-21] MEDS: Lidocaine Patch REMOVE PATCH PATCH OFF SCH (21:05)
[2020-12-22 06:14] LABS: ABS Eosinophils 0.1 10^3/ul (0-0.6); ABS Lymphocytes 0.4 10^3/ul (1.0-4.8); ABS Monocytes 0.3 10^3/ul (0-0.8); ABS Neutrophils 2.2 10^3/ul (1.5-7.7); Eosinophil % 3.6 %; Hematocrit 28 % (35-47); Hemoglobin 9.1 g/dL (12.0-16.0); Lymphocyte % 14.8 %; Mean Corpuscular HGB Conc 32 g/dL (31-36); Mean Corpuscular Hemoglobin 28 pg (27-31); Mean Corpuscular Volume 86 fL (80-97); Mean Platelet Volume 8.1 fL (7.4-10.4); Nucleated Red Blood Cells % 0.1; Platelet Count 117 10^3/uL (150-450); Red Blood Count 3.28 10^6 /uL (3.70-4.87); Red Cell Distribution Width 17 % (10-15)
[2020-12-22 06:23] LABS: Calcium 8.7 mg/dL (8.6-10.3); Magnesium 1.7 mg/dL (1.9-2.7); Potassium 3.9 mmol/L (3.5-5.0)
[2020-12-22] MEDS ORDERED: Magnesium Sulfate 2 gm BAG 2 GM/50 ML BAG IVPB ONE (08:05)
[2020-12-22] MEDS ORDERED: Furosemide 40 mg/4 ml IV VIAL IV SLOW PU SCH (09:00)
[2020-12-22] MEDS: Lidocaine PATCH 5% PATCH TRANSDERM SCH (09:08)
[2020-12-22] MEDS: oxyCODONE SR 40 mg TAB PO SCH ×2 (09:09→22:48)
[2020-12-22] MEDS: Erythromycin OPTH OINT APPLIC OINT RIGHT EYE SCH ×3 (09:13→22:48)
[2020-12-22] MEDS: Furosemide 40 mg/4 ml IV VIAL IV SLOW PU SCH (11:23)
[2020-12-22 16:21] LABS: Albumin 31.3 mg/dL; Albumin/Globulin Ratio 1.35; Gamma Globulin 8.6 mg/dL; Protein,Total, Random Urine 54 mg/dL
[2020-12-22] MEDS: Iron Sucrose 200 MG in NS 0.9% 100 ml BAG 100 ML IVPB SCH (22:48)
[2020-12-22] MEDS: Lidocaine Patch REMOVE PATCH PATCH OFF SCH (22:49)
[2020-12-23] MEDS: Erythromycin OPTH OINT APPLIC OINT RIGHT EYE SCH ×2 (08:43→16:20)
[2020-12-23] MEDS: oxyCODONE SR 40 mg TAB PO SCH (08:43)
[2020-12-23] MEDS: Lidocaine PATCH 5% PATCH TRANSDERM SCH (08:44)
[2020-12-23 10:30] LABS: ABS Eosinophils 0.1 10^3/ul (0-0.6); ABS Lymphocytes 0.4 10^3/ul (1.0-4.8); ABS Monocytes 0.3 10^3/ul (0-0.8); ABS Neutrophils 2.7 10^3/ul (1.5-7.7); Eosinophil % 3.1 %; Hematocrit 28 % (35-47); Hemoglobin 8.9 g/dL (12.0-16.0); Lymphocyte % 12.1 %; Mean Corpuscular HGB Conc 32 g/dL (31-36); Mean Corpuscular Hemoglobin 27 pg (27-31); Mean Corpuscular Volume 85 fL (80-97); Mean Platelet Volume 8.2 fL (7.4-10.4); Platelet Count 102 10^3/uL (150-450); Red Blood Count 3.25 10^6 /uL (3.70-4.87); Red Cell Distribution Width 17 % (10-15); White Blood Count 3.6 10^3/uL (3.5-10.8)
[2020-12-23 10:46] LABS: Calcium 8.9 mg/dL (8.6-10.3); Potassium 3.7 mmol/L (3.5-5.0)
[2020-12-23] MEDS ORDERED: Nystatin TOP POWDER 15 GM BTL TOPICAL SCH (14:03)
[2020-12-23 15:02] VITALS: BP 127/48
[2020-12-23] MEDS ORDERED: Furosemide 40 mg/4 ml IV VIAL IV SLOW PU ONE (15:16)
== END 2020-12-23 17:00 | disposition home or self-care (01) | DRG 292 ==
LOC: ED 22:01 → MEDTELE 12-18 04:23 → SUATTDRO 12-18 04:23 → MEDTELE 12-18 05:45
PROVIDERS: ADMIT Internal Medicine; ATTEND Hospitalist